=== PATIENT | female | born 1985 | race Caucasian/White ===

== ENCOUNTER 2020-09-29 00:14 | Inpatient (IN) | payer SELFPAY ==
[2020-09-29 00:53] LABS: Basophils % 1.4 % (0-1.3); Hematocrit 36.7 % (36.0-45.0); Lymphocytes % 21.8 % (15.3-44.8); MPV 9.2 fL (7.6-11.3); RBC Red Blood Cell Count 5.45 M/uL (3.86-4.86)
[2020-09-29 00:54] LABS: Protime INR 1.31
[2020-09-29 01:09] LABS: Albumin 3.3 g/dL (3.4-5.0); Bilirubin Direct 0.2 mg/dL (0-0.2); Bilirubin Total 0.6 mg/dL (0.2-1.0); Magnesium 2.2 mg/dL (1.8-2.4); Potassium 4.1 mmol/L (3.5-5.1); Troponin (Emerg Dept Use Only) 0.1 ng/mL (0.0-0.045)
[2020-09-29] MEDS ORDERED: METOPROLOL TAR 50 MG TAB ONE (01:18)
[2020-09-29] MEDS ORDERED: ASPIRIN 81 MG CHEWABLE TABLET ONE (01:19)
[2020-09-29] MEDS ORDERED: ENOXAPARIN 100 MG/ML SYR SQ ONE (01:19)
[2020-09-29 01:21] LABS: Anisocytosis 1+; Blood Morphology Comment NOTED (NOT SEEN); Hypochromasia 2+; Ovalocytes 1+; Platelet Estimate ADEQ; Platelets, Giant FEW; Poikilocytosis 1+; White Blood Cell Scan OK (OK)
[2020-09-29] MEDS ORDERED: FUROSEMIDE 20 MG/ 2ML VIAL ONE (01:51)
--- NOTE | 2020-09-29 02:25 | ER ---
Nurse's Notes [facility] Name: Savana Potter Age: 35 yrs Sex: Female : 1985 Arrival Date: 09/29/2020 Time: 00:17 Bed 4 Private MD: Diagnosis: Dyspnea;Chest pain, unspecified;Unspecified combined systolic (congestive) and diastolic (congestive) heart failure;Obesity, unspecified;Pleural effusion in conditions classified elsewhere;Essential (primary) hypertension Presentation: 09/29 00:36 Chief complaint: Patient states: difficulty breathing and fluttering in the chest for 3 em days, denies cough or fever, nausea started today. Coronavirus screen: Client denies travel out of the [place] in the last 14 days. Ebola Screen: Patient negative for fever greater than or equal to 101.5 degrees Fahrenheit, and additional compatible Ebola Virus Disease symptoms Patient denies exposure to infectious person. Patient denies travel to an Ebola-affected area in the 21 days before illness onset. No symptoms or risks identified at this time. Initial Sepsis Screen: Does the patient meet any 2 criteria? HR > 90 bpm. No. Patient's initial sepsis screen is negative. Does the patient have a suspected source of infection? No. Patient's initial sepsis screen is negative. Risk Assessment: Do you want to hurt yourself or someone else? Patient reports no desire to harm self or others. Onset of symptoms was September 26, 2020. 00:36 Method Of Arrival: Ambulatory em 00:36 Acuity: ADEOLA 2 em Triage Assessment: 00:41 General: Appears uncomfortable. Respiratory: Reports shortness of breath at rest Onset: rv The symptoms/episode began/occurred today, the patient has mild shortness of breath. 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 - Social history:: Smoking status: Patient reports the use of cigarette tobacco products, denies chronic smoking, but will smoke occasionally. Screenin:41 Abuse screen: Denies threats or abuse. Denies injuries from another. Nutritional rv screening: No deficits noted. Tuberculosis screening: No symptoms or risk factors identified. Fall Risk None identified. Assessment: 00:40 General: Appears uncomfortable, obese, Behavior is calm, cooperative. Pain: Denies rv pain. Neuro: Level of Consciousness is awake, alert, obeys commands, Oriented to person, place, time. Cardiovascular: Patient's skin is warm and dry. Rhythm is sinus tachycardia. Respiratory: Airway is patent Respiratory effort is even, unlabored, Breath sounds are clear bilaterally. Derm: Skin is intact. Vital Signs: 00:36 BP 144 / 114; Pulse 120; Resp 20; Temp 97.0; Pulse Ox 98% on R/A; Weight 99.79 kg; em Height 5 ft. 1 in. (154.94 cm); Pain 4/10; 02:30 BP 133 / 106; Pulse 104; Resp 24; Temp 97.5; Pulse Ox 97% on R/A; rv 00:36 Body Mass Index 41.57 (99.79 kg, 154.94 cm) em ED Course: 00:17 Patient arrived in ED. ag3 00:26 Ildefonso Hanley, RN is Primary Nurse. rv 00:38 Triage completed. em 00:39 Dixon Martinez MD is Attending Physician. mike 00:39 Arm band placed on. em 00:40 No provider procedures requiring assistance completed. Initial lab(s) drawn, by me, rv sent to lab. EKG done, by ED staff, reviewed by Dixon Martinez MD. Inserted saline lock: 20 gauge in right forearm, using aseptic technique. Blood collected. 00:41 Patient has correct armband on for positive identification. 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 Pulse rv ox on. NIBP on. 01:12 XRAY Chest (1 view) In Process Unspecified. EDMS 02:05 CT Chest For PE Angio In Process Unspecified. EDMS 02:23 Enrico Galvan MD is Hospitalizing Provider. mike 03:32 IV is patent, with fluids infusing freely, Patient admitted, IV remains in place. rv 11:10 Primary Nurse role handed off by Ildefonso Hanley, ZOYA eb 12:53 Claritza Ponce, ZOYA is Primary Nurse. hb Administered Medications: 01:07 Drug: Lopressor (metoprolol TARTRATE) 50 mg Route: PO; rv 02:30 Follow up: Response: No adverse reaction mg2 01:07 Drug: Lovenox 100 mg Route: Sub-Q; Site: abdomen; rv 02:30 Follow up: Response: No adverse reaction mg2 01:07 Drug: Pepcid 20 mg Route: IVP; Site: right forearm; rv 02:30 Follow up: Response: No adverse reaction mg2 01:09 Drug: Aspirin Chewable Tablet 324 mg Route: PO; rv 02:30 Follow up: Response: No adverse reaction mg2 01:38 Drug: Lasix 20 mg Route: IVP; Site: right forearm; rv 02:29 Follow up: Response: No adverse reaction mg2 02:31 Drug: Nitro-Bid Ointment 2 % 1 inches Route: Transdermal; Site: anterior chest wall; mg2 03:32 Follow up: Response: No adverse reaction rv Outcome: 02:24 Decision to Hospitalize by Provider. mike 03:32 Admitted to ER Hold. Please see [employer] for further documentation. rv 03:32 Condition: good 03:32 Instructed on the need for admit. 15:48 Patient left the ED. Signatures: Dispatcher [employer] Dixon Sifuentes MD MD cha Munoz, Edgar, RN RN Claritza Rosas RN RN Carmelina Chavez Michele RN RN [facility] Ildefonso Hanley RN RN Monique Wang
--- NOTE | 2020-09-29 02:25 | EDPHYS ---
Physician Documentation [facility] Name: Savana Potter Age: 35 yrs Sex: Female : 1985 Arrival Date: 09/29/2020 Time: 00:17 Bed 4 Private MD: ED Physician Dixon Martinez HPI: 09/29 00:53 This 35 yrs old Female presents to ER via Ambulatory with complaints of mike Breathing Difficulty. 00:53 The patient has shortness of breath at rest, with light activity. Onset: The mike symptoms/episode began/occurred 3 day(s) ago. Duration: The symptoms are continuous, and are steadily getting worse. The patient's shortness of breath has no apparent modifying factors. Associated signs and symptoms: Pertinent positives: chest pain, non-productive cough. Severity of symptoms: At their worst the symptoms were mild in the emergency department the symptoms are unchanged. The patient has not experienced similar symptoms in the past. 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 - Social history:: Smoking status: Patient reports the use of cigarette tobacco products, denies chronic smoking, but will smoke occasionally. ROS: 00:55 Constitutional: Negative for fever, chills, and weight loss, Eyes: Negative for injury, mike pain, redness, and discharge, ENT: Negative for injury, pain, and discharge, Neck: Negative for injury, pain, and swelling, Cardiovascular: Negative for chest pain, palpitations, and edema, Abdomen/GI: Negative for abdominal pain, nausea, vomiting, diarrhea, and constipation, Back: Negative for injury and pain, : Negative for injury, bleeding, discharge, and swelling, MS/Extremity: Negative for injury and deformity, Skin: Negative for injury, rash, and discoloration, Neuro: Negative for headache, weakness, numbness, tingling, and seizure, Psych: Negative for depression, anxiety, suicide ideation, homicidal ideation, and hallucinations, Allergy/Immunology: Negative for hives, rash, and allergies, Endocrine: Negative for neck swelling, polydipsia, polyuria, polyphagia, and marked weight changes. 00:55 Respiratory: Positive for cough, with no reported sputum, shortness of breath, at rest. Exam: 00:55 Constitutional: This is a well developed, well nourished patient who is awake, alert, mike and in no acute distress. Head/Face: Normocephalic, atraumatic. Eyes: Pupils equal round and reactive to light, extra-ocular motions intact. Lids and lashes normal. Conjunctiva and sclera are non-icteric and not injected. Cornea within normal limits. Periorbital areas with no swelling, redness, or edema. ENT: Nares patent. No nasal discharge, no septal abnormalities noted. Tympanic membranes are normal and external auditory canals are clear. Oropharynx with no redness, swelling, or masses, exudates, or evidence of obstruction, uvula midline. Mucous membranes moist. Neck: Trachea midline, no thyromegaly or masses palpated, and no cervical lymphadenopathy. Supple, full range of motion without nuchal rigidity, or vertebral point tenderness. No Meningismus. Chest/axilla: Normal chest wall appearance and motion. Nontender with no deformity. No lesions are appreciated. Respiratory: Lungs have equal breath sounds bilaterally, clear to auscultation and percussion. No rales, rhonchi or wheezes noted. No increased work of breathing, no retractions or nasal flaring. Abdomen/GI: Soft, non-tender, with normal bowel sounds. No distension or tympany. No guarding or rebound. No evidence of tenderness throughout. Back: No spinal tenderness. No costovertebral tenderness. Full range of motion. Skin: Warm, dry with normal turgor. Normal color with no rashes, no lesions, and no evidence of cellulitis. MS/ Extremity: Pulses equal, no cyanosis. Neurovascular intact. Full, normal range of motion. Neuro: Awake and alert, GCS 15, oriented to person, place, time, and situation. Cranial nerves II-XII grossly intact. Motor strength 5/5 in all extremities. Sensory grossly intact. Cerebellar exam normal. Normal gait. Psych: Awake, alert, with orientation to person, place and time. Behavior, mood, and affect are within normal limits. 00:55 Cardiovascular: Rate: tachycardic, Rhythm: regular, Pulses: Pulses are 4+ in bilateral radial, brachial, femoral, popliteal, posterior tibial and and dorsalis pedis arteries.. Heart sounds: normal, normal S1and S2, no S3 or S4, no murmur, no rub, no gallop, Edema: is not appreciated, JVD: is not appreciated. 01:01 ECG was reviewed by the Attending Physician. [facility] Vital Signs: 00:36 BP 144 / 114; Pulse 120; Resp 20; Temp 97.0; Pulse Ox 98% on R/A; Weight 99.79 kg; em Height 5 ft. 1 in. (154.94 cm); Pain 4/10; 02:30 BP 133 / 106; Pulse 104; Resp 24; Temp 97.5; Pulse Ox 97% on R/A; rv 00:36 Body Mass Index 41.57 (99.79 kg, 154.94 cm) em MDM: 00:39 Patient medically screened. mike 00:57 Differential diagnosis: Anemia Anxiety Reaction acute pericarditis, anxiety, gastritis, mike gastroesophageal reflux disease (GERD), hiatal hernia, pancreatitis, pneumonia, pulmonary embolus, Myocardial Infarction pneumonia, pulmonary edema, Pulmonary Embolism reactive airway disease, Unstable Angina. Antibiotic administration: Not indicated. HEART Score: History: Slightly Suspicious (0), ECG: Non specific repolarization disturbance / LBTB / PM (1), Age: < or = 45 years (0), Risk Factors: No Risk Factors Known (0), Troponin: < or = 1 x Normal Limit (0). The patient's Wells Deep Vein Thrombosis Score was calculated as follows: Total Score: 0. This patient was found to be at low risk for a deep vein thrombosis by using the Well's assessment criteria Total Score: 0-2 Pts- Low Risk. The patient's pulmonary embolism risk score was calculated as follows: the patients heart rate is greater than 100 beats per minute (1.5 Pts) Total Score: 0-2 points. This patient was found to be at low risk for a pulmonary embolism by using the Well's assessment criteria. NELY Risk Score: TOTAL SCORE = 0. Immunization status:. Data reviewed: vital signs, nurses notes, lab test result(s), EKG, radiologic studies, CT scan, plain films. 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 Test interpretation: by ED physician or midlevel provider: ECG, plain radiologic studies. 09/29 00:39 Order name: Basic Metabolic Panel; Complete Time: 01:20 cp 09/29 00:39 Order name: CBC with Diff; Complete Time: 01:29 cp 09/29 00:39 Order name: LFT's; Complete Time: 01:20 cp 09/29 00:39 Order name: Magnesium; Complete Time: 01:20 cp 09/29 00:39 Order name: NT PRO-BNP; Complete Time: 01:20 cp 09/29 00:39 Order name: PT-INR; Complete Time: 01:20 cp 09/29 00:39 Order name: Troponin (emerg Dept Use Only); Complete Time: 01:20 cp 09/29 00:52 Order name: COVID-19 : Document "Date of Symptom Onset" if Symptomatic. [facility] 09/29 00:52 Order name: Lipase; Complete Time: 01:20 mike 09/29 01:09 Order name: CBC Smear Scan; Complete Time: 01:29 EDMS 09/29 02:37 Order name: Urine Dipstick--Ancillary (enter results); Complete Time: 02:58 ds4 09/29 02:46 Order name: SARS-COV-2 RT PCR; Complete Time: 02:58 EDSD 09/29 03:19 Order name: Thyroid Stimulating Hormone EDSD 09/29 00:39 Order name: XRAY Chest (1 view) 09/29 01:22 Order name: CT Chest For PE Angio mike 09/29 03:19 Order name: Comprehensive Metabolic Panel EDSD 09/29 03:19 Order name: Comprehensive Metabolic Panel EDSD 09/29 03:19 Order name: Lipid Profile EDSD 09/29 03:19 Order name: Lipid Profile EDSD 09/29 03:19 Order name: Magnesium EDSD 09/29 03:19 Order name: Magnesium EDMS 09/29 03:19 Order name: Magnesium EDSD 09/29 03:19 Order name: Magnesium EDMS 09/29 03:19 Order name: Troponin I EDSD 09/29 03:19 Order name: Troponin I EDMS 09/29 03:19 Order name: Troponin I EDSD 09/29 03:19 Order name: CBC with Automated Diff EDMS 09/29 03:19 Order name: CBC with Automated Diff EDMS 09/29 03:25 Order name: Urine Drug Screen EDMS 09/29 00:39 Order name: EKG; Complete Time: 00:40 cp 09/29 00:39 Order name: Cardiac monitoring; Complete Time: 00:39 cp 09/29 00:39 Order name: EKG - Nurse/Tech; Complete Time: 00:40 cp 09/29 00:39 Order name: IV Saline Lock; Complete Time: 00:40 cp 09/29 00:39 Order name: Labs collected and sent; Complete Time: 00:40 cp 09/29 00:39 Order name: O2 Per Protocol; Complete Time: 00:40 cp 09/29 00:39 Order name: O2 Sat Monitoring; Complete Time: 00:40 cp 09/29 03:19 Order name: CONS Pharmacy Consult EDMS 09/29 03:19 Order name: CONS Physician Consult EDMS 09/29 03:19 Order name: Full Liquid EDMS 09/29 03:19 Order name: Echo with Doppler EDMS EC:01 Rate is 113 beats/min. Rhythm is regular. QRS [place] is Normal. [place] interval is normal. mike QRS interval is normal. QT interval is normal. No Q waves. T waves are Normal. No ST changes noted. Clinical impression: NSR w/ Non-specific ST/T Changes and No evidence of ischemia. Interpreted by me. Reviewed by me. Administered Medications: 01:07 Drug: Lopressor (metoprolol TARTRATE) 50 mg Route: PO; rv 02:30 Follow up: Response: No adverse reaction mg2 01:07 Drug: Lovenox 100 mg Route: Sub-Q; Site: abdomen; rv 02:30 Follow up: Response: No adverse reaction mg2 01:07 Drug: Pepcid 20 mg Route: IVP; Site: right forearm; rv 02:30 Follow up: Response: No adverse reaction mg2 01:09 Drug: Aspirin Chewable Tablet 324 mg Route: PO; rv 02:30 Follow up: Response: No adverse reaction mg2 01:38 Drug: Lasix 20 mg Route: IVP; Site: right forearm; rv 02:29 Follow up: Response: No adverse reaction mg2 02:31 Drug: Nitro-Bid Ointment 2 % 1 inches Route: Transdermal; Site: anterior chest wall; mg2 03:32 Follow up: Response: No adverse reaction rv Disposition: 09/29/20 02:24 Hospitalization ordered by Enrico Galvan for Inpatient Admission. Preliminary diagnosis are Dyspnea, Chest pain, unspecified, Unspecified combined systolic (congestive) and diastolic (congestive) heart failure, Obesity, unspecified, Pleural effusion in conditions classified elsewhere, Essential (primary) hypertension. - Bed requested for Telemetry/MedSurg (Inpatient). - Status is Inpatient Admission. hb - Condition is Fair. - Problem is new. - Symptoms have improved. Signatures: Dispatcher [employer] [facility] Luanne Zamora RN RN dw Anderson, Corey, MD MD cha Munoz, Edgar RN RN Dixon Hardy PA PA cp Baxter, Heather, RN RN hb Gardose, Michele, RN RN mg2 Ildefonso Hanley RN RN rv Corrections: (The following items were deleted from the chart) 01:41 00:53 CORONAVIRUS ordered. [facility] 02:25 02:24 Hospitalization Ordered by Enrico Galvan MD for Inpatient Admission. Preliminary mike diagnosis is Dyspnea; Chest pain, unspecified; Unspecified combined systolic (congestive) and diastolic (congestive) heart failure; Obesity, unspecified; Pleural effusion in conditions classified elsewhere. Bed requested for Telemetry/MedSurg (Inpatient). Status is Inpatient Admission. Condition is Fair. Problem is new. Symptoms have improved. mike 03:24 02:25 09/29/2020 02:24 Hospitalization Ordered by Enrico Galvan MD for Inpatient dw Admission. Preliminary diagnosis is Dyspnea; Chest pain, unspecified; Unspecified combined systolic (congestive) and diastolic (congestive) heart failure; Obesity, unspecified; Pleural effusion in conditions classified elsewhere; Essential (primary) hypertension. Bed requested for Telemetry/MedSurg (Inpatient). Status is Inpatient Admission. Condition is Fair. Problem is new. Symptoms have improved. mike 14:47 03:24 09/29/2020 02:24 Hospitalization Ordered by Enrico Galvan MD for Inpatient dw Admission. Preliminary diagnosis is Dyspnea; Chest pain, unspecified; Unspecified combined systolic (congestive) and diastolic (congestive) heart failure; Obesity, unspecified; Pleural effusion in conditions classified elsewhere; Essential (primary) hypertension. Bed requested for [facility] ER HOLD. Status is Inpatient Admission. Condition is Fair. Problem is new. Symptoms have improved. 15:48 14:47 09/29/2020 02:24 Hospitalization Ordered by Enrico Galvan MD for Inpatient hb Admission. Preliminary diagnosis is Dyspnea; Chest pain, unspecified; Unspecified combined systolic (congestive) and diastolic (congestive) heart failure; Obesity, unspecified; Pleural effusion in conditions classified elsewhere; Essential (primary) hypertension. Bed requested for Telemetry/MedSurg (Inpatient). Status is Inpatient Admission. Condition is Fair. Problem is new. Symptoms have improved. dw
[2020-09-29] MEDS ORDERED: NITROGLYCERIN 1 GM PKT TD ONE (02:49)
[2020-09-29 02:56] LABS: Urine Blood NEGATIVE (NEG); Urine Glucose NEGATIVE (NEG); Urine Protein TRACE (NEG); Urine pH 6.5 (5.0-7.0)
[2020-09-29] MEDS ORDERED: ALBUTEROL 2.5 MG/3 ML NEB SOL NEB PRN (03:15)
[2020-09-29] MEDS ORDERED: ONDANSETRON 4 MG/2 ML VIAL IV PRN (03:15)
[2020-09-29] MEDS ORDERED: HYDRALAZINE HCL 20 MG/ML VIAL IV PRN (03:17)
[2020-09-29] MEDS ORDERED: LORAZEPAM 0.5 MG TABLET PO PRN (03:17)
[2020-09-29] MEDS ORDERED: GUAIFENESIN/DM 5 ML UCUP PO PRN (03:17)
[2020-09-29] MEDS ORDERED: BENZONATATE 100 MG CAP PO PRN (03:17)
--- NOTE | 2020-09-29 03:25 | P.HP ---
Certification for Inpatient With expected LOS: >2 Midnights Patient will require the following post-hospital care: None Practitioner: I am a practitioner with admitting privileges, knowledge of patient current condition, hospital course, and medical plan of care. Services: Services provided to patient in accordance with Admission requirements found in Title 42 Section 412.3 of the Code of Federal Regulations Patient History Date of Service: 09/29/20 Reason for admission: SOB History of Present Illness: 35 yr old female with pmhx of HTN , admitted for worsening SOB , initial on exertional but later at rest She denies any body swelling . + cough , +chest congestion and intermittent chest pain . on arrival in ER reported tachypneic and dyspneic and had CTA done with no evidence of PE but marked cardiomegaly with trace pleural effusion . She is being admitted for presumed CHF exacerbation Allergies No Known Allergies Allergy (Unverified 02/20/12 15:27) Home Medications: NK [No Home Meds] 04/13/13 Ondansetron [Zofran (Odt)*] 4 mg PO Q6H PRN #30 tab 04/18/13 - Past Medical/Surgical History Diabetic: No -: HTN -: Psychosocial/ Personal History: NO TOB,NO ETOH,NO DRUG USE - Social History Smoking Status: Light Tobacco smoker (1-9 cigarettes/day) Smoking therapy provided: Yes Alcohol use: No CD- Drugs: No Caffeine use: Yes Place of Residence: Home Review of Systems 10-point ROS is otherwise unremarkable Physical Examination - Physical Exam General: Alert, In no apparent distress, Oriented x3 HEENT: Atraumatic, Normocephalic Neck: Supple, 2+ carotid pulse no bruit, JVD not distended Respiratory: Diminished, Crackles/rales Cardiovascular: Regular rate/rhythm, Normal S1 S2 Gastrointestinal: Normal bowel sounds, Soft and benign, Non-distended Musculoskeletal: No clubbing, No swelling Integumentary: No rashes, No breakdown Neurological: Normal gait, Normal speech, Normal strength at 5/5 x4 extr - Studies Laboratory Data (last 24 hrs) 09/29/20 00:44: PT 15.1 H, INR 1.31 09/29/20 00:44: WBC 9.40, Hgb 10.8 L, Hct 36.7, Plt Count 209 09/29/20 00:44: Sodium 142, Potassium 4.1, BUN 13, Creatinine 0.75, Glucose 105, Magnesium 2.2, Total Bilirubin 0.6, AST 23, ALT 33, Alkaline Phosphatase 80 09/29/20 00:40: Lipase 231 Assessment and Plan - Problems (Diagnosis) (1) HTN (hypertension) Current Visit: Yes Status: Acute (2) CHF exacerbation Current Visit: Yes Status: Acute - Plan # CHF - likely diastolic , unclear etiology -will obtain Echo for EF - start gentle diuretics - will do urine drug screen , TSH levels - monitor electrolytes # HTN -controlled DVT prop - sc lovenox Full code - Advance Directives Does patient have a Living Will: No Does patient have a Durable POA for Healthcare: No Physician Review: Patient Assessed, Agree with Above Assessment and Plan
[2020-09-29] MEDS: ACETAMINOPHEN 500 MG TAB PO PRN ×2 (05:07→13:34)
[2020-09-29] MEDS ORDERED: ACETAMINOPHEN 500 MG TAB ONE ×2 (05:22→13:45)
[2020-09-29 07:44] LABS: Magnesium 2.2 mg/dL (1.8-2.4); Thyroid Stimulating Hormone 1.98 uIU/mL (0.360-3.740); Troponin I 0.07 ng/mL (0.0-0.045)
[2020-09-29] MEDS: ASPIRIN EC 81 MG TAB PO SCH (08:01)
[2020-09-29] MEDS: FUROSEMIDE 40 MG TABLET PO SCH ×2 (08:02→16:06)
[2020-09-29] MEDS: ENOXAPARIN 40 MG/0.4 ML SQ SCH (08:02)
[2020-09-29] MEDS: MORPHINE 2 MG/ML SYR IV PRN ×2 (08:02→21:12)
[2020-09-29] MEDS ORDERED: FUROSEMIDE 40 MG TABLET ONE (08:06)
[2020-09-29] MEDS ORDERED: MORPHINE 2 MG/ML SYR ONE (08:06)
[2020-09-29] MEDS ORDERED: ASPIRIN EC 81 MG TAB PO ONE (08:06)
[2020-09-29] MEDS ORDERED: ONDANSETRON 4 MG/2 ML VIAL ONE (08:06)
[2020-09-29] MEDS ORDERED: ENOXAPARIN 40 MG/0.4 ML SQ ONE (08:07)
--- NOTE | 2020-09-29 08:08 | RAD REPORT ---
EXAM DESCRIPTION: [place] Single View09/29/2020 1:12 am CLINICAL HISTORY: Chest pain COMPARISON: 2011 FINDINGS: Upper lobe vessels are prominent indicative of pulmonary venous hypertension. Lungs appea r clear. The heart is moderately to markedly enlarged
--- NOTE | 2020-09-29 08:26 | RAD REPORT ---
EXAM DESCRIPTION: CT - Chest For Pe Angio - 09/29/2020 7:01 am CLINICAL HISTORY: Chest pain; Dyspnea TECHNIQUE: Contiguous axial images obtained through the chest during angiographic phase following th e uneventful administration of IV contrast. Sagittal and coronal reformatted images were provided. VT P reformatted images were provided. This exam was performed according to our departmental dose-optimization program, which includes autom ated exposure control, adjustment of the mA and/or kV according to patient size and/or use of iterati ve reconstruction technique. COMPARISON: No prior exams provided for comparison. FINDINGS: Diagnostic quality: There is good opacification of the pulmonary arterial tree. Motion art ifact degrades image quality and limits evaluation of segmental and subsegmental vessels. Lungs: Minimal interstitial thickening. No focal consolidation. Airways are patent. Pleura: Trace right effusion. No pneumothorax. Heart and pericardium: The heart is moderately enlarged. Small pericardial effusion. Mediastinum and fransisca: No pathologically enlarged lymph nodes. Lower neck and chest wall: Unremarkable Vessels: No pulmonary arterial filling defects. No thoracic aortic aneurysm. Upper abdomen: The liver is enlarged. Bones: Multilevel spondylosis. No acute fracture. IMPRESSION: 1. Motion artifact degrades image quality and limits evaluation of segmental and subse gmental vessels. No central pulmonary embolic disease. 2. Minimal interstitial thickening within the lungs bilaterally. Trace right pleural effusion. No f ocal consolidation. Findings may be related to early pulmonary congestion. 3. Other findings as above. Electronically signed by: Campbell Mccollum MD 09/29/2020 2:18 AM CHANGE CONTROL SPECIALIST Due to temporary technical issues with the PACS/Fluency reporting system, reports are being signed by the in house radiologist without review as a courtesy to ensure prompt reporting. The interpreting r adiologist is fully responsible for the content of the report.
--- NOTE | 2020-09-29 17:58 | P.PN ---
Date of Service: 09/29/20 Patient seen and examined. She is complaining of headache. She states the shortness of breath is better. Patient seen and evaluated by Dr. Cuellar-furnace clerk. Troponin trended flat. Patient with no history of congestive heart failure. Echocardiogram completed and the result is pending. TSH within normal limit. Plan; Continue IV Lasix. Discontinue nitroglycerin patch given patient complained of persistent headache. Monitor intake and output Daily weight. Cardiology is following. Follow up echocardiogram result.
[2020-09-29 21:41] LABS: Barbiturates NEGATIVE (NEGATIVE); Benzodiazepines NEGATIVE (NEGATIVE); Cocaine NEGATIVE (NEGATIVE); METHAMPHETAM POSITIVE (NEGATIVE); Methadone NEGATIVE (NEGATIVE); Opiates NEGATIVE (NEGATIVE); Phencyclidine NEGATIVE (NEGATIVE); THC Cannibis NEGATIVE (NEGATIVE)
[2020-09-30 03:56] LABS: Absolute Lymphocytes (CBC) 2.1 K/uL (0.7-4.9); Basophils % 1.1 % (0-1.3); Hematocrit 34.8 % (36.0-45.0); Lymphocytes % 20.9 % (15.3-44.8); MPV 9.1 fL (7.6-11.3); RBC Red Blood Cell Count 5.16 M/uL (3.86-4.86)
[2020-09-30 04:10] LABS: Albumin 3.1 g/dL (3.4-5.0); Bilirubin Total 1.3 mg/dL (0.2-1.0); Magnesium 1.8 mg/dL (1.8-2.4); Protein, Total 6.5 g/dL (6.4-8.2)
[2020-09-30 06:23] VITALS: BMI 21.7
[2020-09-30] MEDS ORDERED: FUROSEMIDE 40 MG/4 ML VIAL IV SCH (09:00)
[2020-09-30] MEDS: ENOXAPARIN 40 MG/0.4 ML SQ SCH (09:29)
[2020-09-30] MEDS: ASPIRIN EC 81 MG TAB PO SCH (09:29)
[2020-09-30 10:31] VITALS: O2SAT 95
--- NOTE | 2020-09-30 11:14 | P.DS ---
Admission Date: 09/29/20 Discharge Date: 09/30/20 Disposition: ROUTINE DISCHARGE Discharge Condition: FAIR Reason for Admission: SOB Consultations: Cardiology-Dr. Cuellar - Problems (1) CHF exacerbation Status: Acute (2) HTN (hypertension) Status: Acute Brief History of Present Illness: 35-year-old morbidly obese woman presented to the emergency department with a complaint of progressive shortness of breath, initially with exertion and then progress to shortness of breath at rest. Patient also reported orthopnea. CTA of the thorax done in emergency department showed small right pleural effusion and findings consistent with early vascular congestion and moderate cardiomegaly. Her initial troponin mildly elevated to 0.1. Patient was admitted for further management of acute CHF and elevated troponin. Hospital Course: Patient admitted to the medical floor. Troponin trended flat. Patient was treated with IV Lasix. Her shortness of breath resolved with treatment. She no longer had orthopnea. She was seen in consultation by cardiology-Dr. Cuellar. Echocardiogram was performed and the result is pending to be followed by cardiology. Her blood pressure was stable and normotensive most times during the hospital stay and was not needing any antihypertensives. She was a bit tachycardic with heart rate in the 100s. Patient has clinically improved, vitals are stable. ACS has been ruled out and she is deemed clinically stable for discharge. Vital Signs/Physical Exam: Temp Pulse Resp BP Pulse Ox 97.4 F 101 H 18 138/90 95 09/30/20 08:00 09/30/20 08:00 09/30/20 08:00 09/30/20 08:00 09/30/20 08:00 General: Alert, In no apparent distress, Oriented x3 Neck: Supple, JVD not distended Respiratory: Clear to auscultation bilaterally, Normal air movement Cardiovascular: No edema, Normal pulses, Regular rate/rhythm, Normal S1 S2 Gastrointestinal: Normal bowel sounds, Soft and benign, Non-distended, No tenderness Musculoskeletal: No swelling, No tenderness Integumentary: No rashes, No erythema Neurological: Normal speech, Normal strength at 5/5 x4 extr, Cranial nerves 3-12 intact Laboratory Data at Discharge: WBC 10.10 K/uL (4.3-10.9) 09/30/20 03:31 Hgb 10.3 g/dL (12.0-15.0) L 09/30/20 03:31 Hct 34.8 % (36.0-45.0) L 09/30/20 03:31 Plt Count 182 K/uL (152-406) 09/30/20 03:31 PT 15.1 SECONDS (9.5-12.5) H 09/29/20 00:44 INR 1.31 09/29/20 00:44 Sodium 140 mmol/L (136-145) 09/30/20 03:31 Potassium 4.0 mmol/L (3.5-5.1) 09/30/20 03:31 BUN 15 mg/dL (7-18) 09/30/20 03:31 Creatinine 0.77 mg/dL (0.55-1.3) 09/30/20 03:31 Glucose 83 mg/dL (74-106) 09/30/20 03:31 Magnesium 1.8 mg/dL (1.8-2.4) 09/30/20 03:31 Total Bilirubin 1.3 mg/dL (0.2-1.0) H 09/30/20 03:31 AST 116 U/L (15-37) H 09/30/20 03:31 ALT 121 U/L (12-78) H 09/30/20 03:31 Alkaline Phosphatase 75 U/L (45-117) 09/30/20 03:31 Troponin I 0.08 ng/mL (0.0-0.045) H 09/29/20 11:36 Triglycerides 66 mg/dL (<150) 09/30/20 03:31 Cholesterol 75 mg/dL (<200) 09/30/20 03:31 HDL Cholesterol 24 mg/dL (40-60) L 09/30/20 03:31 Cholesterol/HDL Ratio 3.13 09/30/20 03:31 Lipase 231 U/L (73-393) 09/29/20 00:40 Home Medications: Ondansetron [Zofran (Odt)*] 4 mg PO Q6H PRN #30 tab 04/18/13 Aspirin [Aspirin EC 81 MG] 81 mg PO DAILY #30 tablet. 09/30/20 Benzonatate [Tessalon Perle*] 200 mg PO TID PRN #30 cap 09/30/20 Furosemide [Lasix] 40 mg PO DAILY #30 tablet 09/30/20 New Medications: Aspirin [Aspirin EC 81 MG] 81 mg PO DAILY #30 tablet. Furosemide [Lasix] 40 mg PO DAILY #30 tablet Benzonatate [Tessalon Perle*] 200 mg PO TID PRN #30 cap PRN Reason: Cough Diet: AHA Activity: Ad rylan Followup: NONE,NONE [Primary Care Provider] - James Cuellar MD [ACTIVE - CAN ADMIT] - 1-2 Weeks Time spent managing pt's care (in minutes): 37
[2020-09-30 13:47] VITALS: BP 121/70; TEMP 97.5
--- NOTE | 2020-10-01 07:58 | EKG ---
Test Date: 2020-09-29 Test Time: 00:33:14 Manager Project Management: LEATHA MEASUREMENT RESULTS: Intervals: Rate: 113 MN: 132 QRSD: 104 QT: 358 QTc: 491 [place]: P: 67 MN: 132 QRS: 166 T: 7 INTERPRETIVE STATEMENTS: Sinus tachycardia Right atrial enlargement Right axis deviation Pulmonary disease pattern Incomplete right bundle branch block Right ventricular hypertrophy Nonspecific ST abnormality Abnormal ECG Compared to ECG 04/12/2013 20:48:06 Atrial abnormality now present Right-axis deviation now present Incomplete right bundle-branch block now present Right ventricular hypertrophy now present ST (T wave) deviation now present Sinus rhythm no longer present Electronically Signed On 10-01-20 07:53:45 [employer] by James Cuellar
--- NOTE | 2020-10-01 10:52 | CON ---
Date of Consultation: 09/29/2020 Reason For Consultation: New-onset congestive heart failure. History Of Present Illness: Ms. Potter is a 35-year-old woman without any past medical history who d oes not take any medicines. Does not have any allergies. Came in with shortness of breath for few d ays. Complained of PND, orthopnea, pedal edema. No palpitation, no syncope. No chest pain. Denied any nausea, vomiting, diaphoresis, fever or chills. Came in with shortness of breath. Chest x-ray showed CHF. Troponin was 0.10. BNP was 4619. Ms. Potter weighs 220 pounds. Past Medical History: Otherwise have no past medical history. Allergies: NONE. Home Medications: None. Review of Systems: Negative. Social History: Negative. Family History: Noncontributory. Physical Examination: General: She appeared to be in no acute distress. Vital Signs: Stable. She was afebrile. She had diuresed significantly with IV Lasix. HEENT: Negative. Neck: Supple without any bruit, lymphadenopathy, JVD, or thyromegaly. Chest: Reveals some rales at both bases. Cardiac: Revealed a regular rhythm and rate. No murmurs, gallops, or rubs. Abdomen: Benign. Extremities: Revealed edema 1+. Diagnostic Data: As stated earlier. EKG was nonspecific. Impression And Plan: New onset congestive heart failure, most likely diastolic. Echocardiogram is p ending. We will continue IV diuresis. She should definitely go home on p.o. Lasix and carvedilol an d a low-dose PAULINA inhibitor and we will be happy to see her in the next week or two in the office. Sh e needs to be educated on salt restrictions and weight loss as well as fluid restrictions. LINDA/ROSA ISELAL Voice ID: [id number] Report ID: [id number]
--- NOTE | 2020-10-04 14:51 | ECHO ---
HEIGHT: 5 ft 1 in WEIGHT: 115 lb 0 oz DATE OF STUDY: 09/29/[address]: Enrico Galvan MD 2-DIMENSIONAL: YES M.MODE: YES DOPPLER: YES COLOR FLOW: YES TDS: NO PORTABLE: NO DEFINITY: NO BUBBLE STUDY: NO DIAGNOSIS: CEREBRAL VASCULAR ACCIDENT CARDIAC HISTORY: CATHERIZATION: NO SURGERY: NO PROSTHETIC VALVE: NO PACEMAKER: NO MEASUREMENTS (cm) DIASTOLIC (NORMALS) SYSTOLIC (NORMALS) IVSd 1.2 (0.6-1.2) LA Diam 3.9 (1.9-4.0) LVEF 25-30% LVIDd 5.4 (3.5-5.7) LVIDs 4.5 (2.0-3.5) %FS 16% LVPWd 1.2 (0.6-1.2) Ao Diam 3.2 (2.0-3.7) 2 DIMENSIONAL ASSESSMENT: RIGHT ATRIUM: NORMAL LEFT ATRIUM: NORAML RIGHT VENTRICLE: NORMAL LEFT VENTRICLE: NORMAL SIZE TRICUSPID VALVE: NORMAL MITRAL VALVE: NORMAL PULMONIC VALVE: NORMAL AORTIC VALVE: NORMAL PERICARDIAL EFFUSION: TRACE AORTIC ROOT: NORMAL LEFT VENTRICULAR WALL MOTION: SEVERE GLOBAL HYPOKINESIS. DOPPLER/COLOR FLOW: MILD TRICUSPID REGURGITATION - NORMAL RIGHT VENTRICULAR SYSTOLIC PRESSURE. COMMENTS: SEVERE GLOBAL HYPOKINESIS. NORMAL RIGHT VENTRICULAR SYSTOLIC PRESSURE - MILD TRICUSPID REGURGITATION. EJECTION FRACTION 25-30%. TECHNOLOGIST: ROBERT KAUR
== END 2020-09-30 15:58 | disposition home or self-care (01) | DRG 292 ==
LOC: ER 00:14 → ERHOLD 04:04 → 2ND 15:24
PROVIDERS: ADMIT Internal Medicine; ATTEND Internal Medicine
DX: I11.0 Hypertensive heart disease with heart failure (principal); Z68.41 Body mass index [BMI] 40.0-44.9, adult; E66.01 Morbid (severe) obesity due to excess calories; I50.33 Acute on chronic diastolic (congestive) heart failure; F17.210 Nicotine dependence, cigarettes, uncomplicated; Z90.49 Acquired absence of other specified parts of digestive tract; Z79.82 Long term (current) use of aspirin; Z79.899 Other long term (current) drug therapy; Z20.822 Contact with and (suspected) exposure to COVID-19
CPT/HCPCS: 36415; 71045; 71275; 80048; 80053; 80061; 80076; 80307; 81003; 83690; 83735; 83880; 84443; 84484; 85025; 85610; 93005; 93306; 94760; 96372; 96374; 96375; 99285; J1650; J1940; J2270; J2405; Q9967; U0003

== ENCOUNTER 2020-11-29 01:29 | Emergency (ER) | payer SELFPAY ==
--- NOTE | 2020-11-29 02:10 | EDPHYS ---
Physician Documentation [facility] Name: Savana Potter Age: 35 yrs Sex: Female : 1985 Arrival Date: 11/29/2020 Time: 01:31 Bed 6 Private MD: ED Physician Carlos Torres HPI: 11/29 01:58 This 35 yrs old Female presents to ER via Wheelchair with complaints of Chest mike Pain. 01:58 The patient or guardian reports chest pain that is located primarily in the substernal mike area. The pain does not radiate. Associated signs and symptoms: The patient has no apparent associated signs or symptoms. The chest pain is described as a heaviness, a pressure. Duration: The patient or guardian reports a single episode, that is still ongoing, and worsening. Modifying factors: The symptoms are alleviated by application of supplemental oxygen, remaining still, the symptoms are aggravated by breathing, movement. Severity of pain: At its worst the pain was moderate in the emergency department the pain is actually worse mildly. The patient has experienced similar episodes in the past, several times. 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 - Social history:: Smoking status: Patient denies any tobacco usage or history of. - Family history:: not pertinent. ROS: 01:58 Constitutional: Negative for fever, chills, and weight loss, Eyes: Negative for injury, mike pain, redness, and discharge, ENT: Negative for injury, pain, and discharge, Neck: Negative for injury, pain, and swelling, Cardiovascular: Negative for chest pain, palpitations, and edema, Abdomen/GI: Negative for abdominal pain, nausea, vomiting, diarrhea, and constipation, Back: Negative for injury and pain, : Negative for injury, bleeding, discharge, and swelling, MS/Extremity: Negative for injury and deformity, Skin: Negative for injury, rash, and discoloration, Neuro: Negative for headache, weakness, numbness, tingling, and seizure, Psych: Negative for depression, anxiety, suicide ideation, homicidal ideation, and hallucinations, Allergy/Immunology: Negative for hives, rash, and allergies, Endocrine: Negative for neck swelling, polydipsia, polyuria, polyphagia, and marked weight changes, Hematologic/Lymphatic: Negative for swollen nodes, abnormal bleeding, and unusual bruising. 01:58 Respiratory: Positive for cough, dyspnea on exertion, orthopnea, shortness of breath, at rest. 01:58 MS/extremity: Positive for swelling, of the right leg and left leg. Exam: 01:58 Constitutional: This is a well developed, well nourished patient who is awake, alert, mike and in no acute distress. Head/Face: Normocephalic, atraumatic. Eyes: Pupils equal round and reactive to light, extra-ocular motions intact. Lids and lashes normal. Conjunctiva and sclera are non-icteric and not injected. Cornea within normal limits. Periorbital areas with no swelling, redness, or edema. ENT: Nares patent. No nasal discharge, no septal abnormalities noted. Tympanic membranes are normal and external auditory canals are clear. Oropharynx with no redness, swelling, or masses, exudates, or evidence of obstruction, uvula midline. Mucous membranes moist. Neck: Trachea midline, no thyromegaly or masses palpated, and no cervical lymphadenopathy. Supple, full range of motion without nuchal rigidity, or vertebral point tenderness. No Meningismus. Chest/axilla: Normal chest wall appearance and motion. Nontender with no deformity. No lesions are appreciated. Abdomen/GI: Soft, non-tender, with normal bowel sounds. No distension or tympany. No guarding or rebound. No evidence of tenderness throughout. Back: No spinal tenderness. No costovertebral tenderness. Full range of motion. Skin: Warm, dry with normal turgor. Normal color with no rashes, no lesions, and no evidence of cellulitis. MS/ Extremity: Pulses equal, no cyanosis. Neurovascular intact. Full, normal range of motion. Neuro: Awake and alert, GCS 15, oriented to person, place, time, and situation. Cranial nerves II-XII grossly intact. Motor strength 5/5 in all extremities. Sensory grossly intact. Cerebellar exam normal. Normal gait. 01:58 Cardiovascular: Rate: tachycardic, Rhythm: regular, Pulses: Pulses are 4+ in bilateral radial, brachial, femoral, popliteal, posterior tibial and and dorsalis pedis arteries.. Heart sounds: normal, Edema: 4+ edema to level of left midcalf and right midcalf, JVD: is noted bilaterally, to 3 cm. 01:58 ECG was reviewed by the Attending Physician. 05:50 Abdomen/GI: Inspection: distension, Bowel sounds: normal, Palpation: moderate abdominal mike tenderness, in the suprapubic area and right lower quadrant, Liver: is enlarged, palpable 12 cm(s) below rib margin, tenderness, that is mild, Hernia: not appreciated. Vital Signs: 01:43 BP 129 / 102; Pulse 119; Resp 28 S; Temp 98.2; Weight 104.33 kg; Height 5 ft. 1 in. em (154.94 cm); Pain 7/10; 01:50 Pulse Ox 97% on R/A; em 03:04 BP 143 / 107; Pulse 107; Resp 28; Pulse Ox 99% ; ea 04:00 BP 141 / 102; Pulse 110; Resp 24; Pulse Ox 97% on BiPAP; rr5 05:00 BP 127 / 87; Pulse 108; Resp 22; Pulse Ox 98% on BiPAP; rr5 06:00 BP 118 / 70; Pulse 110; Resp 16; Pulse Ox 98% on 10% Non-rebreather mask; rr5 01:43 Body Mass Index 43.46 (104.33 kg, 154.94 cm) em MDM: 01:36 Patient medically screened. mkie 02:03 Differential diagnosis: abnormal EKG, acute myocardial infarction, coronary artery mike disease chest wall pain, congestive heart failure hiatal hernia, pancreatitis, peptic ulcer disease, pneumonia, pneumothorax, stable angina, unstable angina. HEART Score: History: Moderately Suspicious (1), ECG: Non specific repolarization disturbance / LBTB / PM (1), Age: < or = 45 years (0), Risk Factors: > or = 3 Risk factors for atherosclerotic disease (2), [Hypercholesterolemia] [Hypertension] [+ Family HX] [Obesity] Troponin: < or = 1 x Normal Limit (0), Total Score = 4. The patient's deep vein thrombosis risk score was calculated as follows: the patients entire leg is swollen (1.0 Pts) Total Score: 1 to 2 points. This patient was found to be at moderate risk for a deep vein thrombosis by using the Well's assessment criteria. The patient's pulmonary embolism risk score was calculated as follows: the patients heart rate is greater than 100 beats per minute (1.5 Pts) Total Score: 0-2 points. This patient was found to be at low risk for a pulmonary embolism by using the Well's assessment criteria. NELY Risk Score: 1 - Three or more CAD risk factors, TOTAL SCORE = 2. Data reviewed: vital signs, nurses notes, lab test result(s), EKG, radiologic studies, plain films. Data interpreted: radiation monitor: rate is 119 beats/min, rhythm is regular, Pulse oximetry: on room air is 97 %. Test interpretation: by ED physician or midlevel provider: ECG, plain radiologic studies. Counseling: I had a detailed discussion with the patient and/or guardian regarding: the historical points, exam findings, and any diagnostic results supporting the discharge/admit diagnosis, lab results, radiology results, the need for further work-up and treatment in the hospital. 11/29 01:41 Order name: Basic Metabolic Panel; Complete Time: 03:28 rr5 11/29 01:41 Order name: CBC with Diff; Complete Time: 05:05 rr5 11/29 01:41 Order name: LFT's; Complete Time: 03:28 rr5 11/29 01:41 Order name: Magnesium; Complete Time: 03:28 rr5 11/29 01:41 Order name: NT PRO-BNP; Complete Time: 03:28 rr5 11/29 01:41 Order name: PT-INR; Complete Time: 02:44 rr5 11/29 01:41 Order name: Troponin (emerg Dept Use Only); Complete Time: 03:28 rr5 11/29 01:48 Order name: TSH [facility] 11/29 01:56 Order name: AMMONIA; Complete Time: 02:54 mike 11/29 02:39 Order name: Thyroid Stimulating Hormone; Complete Time: 03:28 EDMS 11/29 02:42 Order name: CBC Smear Scan; Complete Time: 05:05 EDVT 11/29 02:49 Order name: Sed Rate; Complete Time: 03:58 [facility] 11/29 01:41 Order name: XRAY Chest (1 view); Complete Time: 06:58 rr5 11/29 01:57 Order name: BIPAP [facility] 11/29 02:49 Order name: CT Abd/Pelvis - IV Contrast Only [facility] 11/29 02:54 Order name: Urine Dipstick-Ancillary; Complete Time: 03:28 EDVT 11/29 02:55 Order name: Urine Dipstick-Ancillary; Complete Time: 03:28 EDVT 11/29 02:57 Order name: Urine Microscopic Only; Complete Time: 05:21 [facility] 11/29 03:05 Order name: T4 Free; Complete Time: 03:28 EDVT 11/29 03:20 Order name: Urine --Ancillary (enter results) [facility] 11/29 03:21 Order name: Urine --Ancillary; Complete Time: 05:21 EDVT 11/29 03:53 Order name: SARS-COV-2 RT PCR; Complete Time: 03:58 EDVT 11/29 05:08 Order name: BIPAP [facility] 11/29 01:41 Order name: EKG; Complete Time: 01:42 [facility] 11/29 01:41 Order name: Cardiac monitoring; Complete Time: 02:21 [facility] 11/29 01:41 Order name: EKG - Nurse/Tech; Complete Time: 02:21 [facility] 11/29 01:41 Order name: IV Saline Lock; Complete Time: 02:21 [facility] 11/29 01:41 Order name: Labs collected and sent; Complete Time: 02:22 [facility] 11/29 01:41 Order name: O2 Per Protocol; Complete Time: 02:22 [facility] 11/29 01:41 Order name: O2 Sat Monitoring; Complete Time: 02:22 [facility] 11/29 01:48 Order name: Urine Dipstick-Ancillary (obtain specimen); Complete Time: 02:57 [facility] 11/29 01:48 Order name: Urine Test (obtain specimen); Complete Time: 02:57 [facility] 11/29 01:56 Order name: Goins; Complete Time: 02:56 [facility] EC:58 Rate is 119 beats/min. Rhythm is regular. QRS [place] is Normal. DC interval is normal. No mike Q waves. T waves are Normal. No ST changes noted. Clinical impression: Sinus tachycardia and No evidence of ischemia. Interpreted by me. Reviewed by me. Administered Medications: 02:19 Drug: Zofran (Ondansetron) 4 mg Route: IVP; Site: right antecubital; ea 03:20 Follow up: Response: No adverse reaction rr5 02:19 Drug: Lasix (furosemide) 60 mg Route: IVP; Site: right antecubital; ea 03:40 Follow up: Response: No adverse reaction; Other; positive urine output rr5 02:20 Drug: Xopenex (levalbuterol) 1.25 mg Route: Inhalation; ea 03:15 Follow up: Response: No adverse reaction rr5 02:20 Drug: Nitro-Bid Ointment 2 % 1 inches Route: Transdermal; Site: affected area; ea 03:20 Follow up: Response: No adverse reaction rr5 02:20 Drug: AtroVENT (ipratropium) Aerosol 0.5 mg Route: Inhalation; ea 03:20 Follow up: Response: No adverse reaction; Marked relief of symptoms rr5 02:20 Drug: morphine 2 mg Route: IVP; Site: right antecubital; ea 03:20 Follow up: Response: No adverse reaction; Pain is decreased; RASS: Alert and Calm (0) rr5 02:57 Drug: Pepcid (famotidine) 20 mg Route: IVP; Site: right antecubital; ea 04:00 Follow up: Response: No adverse reaction rr5 04:11 Drug: Magnesium Sulfate 1 grams Route: IVPB; Infused Over: 1 hrs; Site: right ea antecubital; 05:45 Follow up: Response: No adverse reaction; IV Status: Completed infusion ea 05:45 Drug: Potassium Effervescent Tablet 25 mEq Route: PO; ea 06:32 Follow up: Response: No adverse reaction rr5 06:30 Drug: morphine 2 mg {Note: rass 0.} Route: IVP; Site: right forearm; rr5 07:12 Follow up: Response: No adverse reaction; Pain is decreased; RASS: Alert and Calm (0) rr5 Disposition: 05:09 Co-signature as Attending Physician, Dixon Martinez MD I agree with the assessment and mike plan of care. Disposition: 11/29/20 05:20 Transfer ordered to [facility]. Diagnosis are Unspecified combined systolic (congestive) and diastolic (congestive) heart failure, Hypomagnesemia, Anemia, unspecified, Salpingitis and oophoritis, unspecified - Right, Essential (primary) hypertension, Other chest pain - Angina, Hepatomegaly, not elsewhere classified - severe, Ascites, Abdominal tenderness, Pleural effusion in conditions classified elsewhere. - Reason for transfer: Higher level of care. - Accepting physician is Humberto Escalante. - Condition is Fair. - Problem is new. - Symptoms have improved. Signatures: Dispatcher [employer] EDVT Vesta Aguayo RN Dixon Lund MD MD cha Rittger, Kevin, MD MD kdr Munoz, Edgar RN Mandi Lunsford RN RN iw Enrique Diamond, IRON MINER-C IRON MINER-Cla1 Coco Em RN RN ea Roque, Raymond, RN RN rr5 Corrections: (The following items were deleted from the chart) 02:38 01:48 Thyroid Stimulating Hormone ordered. EDVT EDMS 02:50 02:09 Hospitalization Ordered by Dannie Levy MD for Inpatient Admission. Preliminary mike diagnosis is Chest pain, unspecified; Unspecified combined systolic (congestive) and diastolic (congestive) heart failure; Essential (primary) hypertension; Edema, unspecified. Bed requested for Telemetry/MedSurg (Inpatient). Status is Inpatient Admission. Condition is Serious. Problem is new. Symptoms have improved. mike 02:55 01:58 CORONAVIRUS+ ordered. EDVT EDMS 04:02 01:47 PMHx: None; em la1 04:19 02:50 11/29/2020 02:09 Hospitalization Ordered by Dannie Levy MD for Inpatient mw Admission. Preliminary diagnosis is Chest pain, unspecified; Unspecified combined systolic (congestive) and diastolic (congestive) heart failure; Essential (primary) hypertension; Edema, unspecified; Anemia, unspecified. Bed requested for Telemetry/MedSurg (Inpatient). Status is Inpatient Admission. Condition is Serious. Problem is new. Symptoms have improved. mike 05:09 04:19 11/29/2020 02:09 Hospitalization Ordered by Dannie Levy MD for Inpatient mike Admission. Preliminary diagnosis is Chest pain, unspecified; Unspecified combined systolic (congestive) and diastolic (congestive) heart failure; Essential (primary) hypertension; Edema, unspecified; Anemia, unspecified. Bed requested for Telemetry/MedSurg (Inpatient). Status is Inpatient Admission. Condition is Serious. Problem is new. Symptoms have improved. 05:20 05:20 11/29/2020 05:20 Transfer ordered to [facility]. Diagnosis is Unspecified mike combined systolic (congestive) and diastolic (congestive) heart failure; Hypomagnesemia; Anemia, unspecified; Salpingitis and oophoritis, unspecified - Right; Essential (primary) hypertension; Other chest pain - Angina; Hepatomegaly, not elsewhere classified - severe; Ascites. Reason for transfer: Higher level of care. Accepting physician is [facility]. Condition is Fair. Problem is new. Symptoms have improved. mike 05:51 05:20 11/29/2020 05:20 Transfer ordered to [facility]. Diagnosis is mike Unspecified combined systolic (congestive) and diastolic (congestive) heart failure; Hypomagnesemia; Anemia, unspecified; Salpingitis and oophoritis, unspecified - Right; Essential (primary) hypertension; Other chest pain - Angina; Hepatomegaly, not elsewhere classified - severe; Ascites. Reason for transfer: Higher level of care. Accepting physician is to [employer], [facility]. Condition is Fair. Problem is new. Symptoms have improved. mike 06:14 05:51 11/29/2020 05:20 Transfer ordered to [facility]. Diagnosis is mike Unspecified combined systolic (congestive) and diastolic (congestive) heart failure; Hypomagnesemia; Anemia, unspecified; Salpingitis and oophoritis, unspecified - Right; Essential (primary) hypertension; Other chest pain - Angina; Hepatomegaly, not elsewhere classified - severe; Ascites; Abdominal tenderness. Reason for transfer: Higher level of care. Accepting physician is to [employer], [facility]. Condition is Fair. Problem is new. Symptoms have improved. mike 07:54 06:14 11/29/2020 05:20 Transfer ordered to [facility]. Diagnosis is kdr Unspecified combined systolic (congestive) and diastolic (congestive) heart failure; Hypomagnesemia; Anemia, unspecified; Salpingitis and oophoritis, unspecified - Right; Essential (primary) hypertension; Other chest pain - Angina; Hepatomegaly, not elsewhere classified - severe; Ascites; Abdominal tenderness; Pleural effusion in conditions classified elsewhere. Reason for transfer: Higher level of care. Accepting physician is to [employer], [facility]. Condition is Fair. Problem is new. Symptoms have improved. mike 07:55 07:54 11/29/2020 05:20 Transfer ordered to [facility]. kdr Diagnosis is Unspecified combined systolic (congestive) and diastolic (congestive) heart failure; Hypomagnesemia; Anemia, unspecified; Salpingitis and oophoritis, unspecified - Right; Essential (primary) hypertension; Other chest pain - Angina; Hepatomegaly, not elsewhere classified - severe; Ascites; Abdominal tenderness; Pleural effusion in conditions classified elsewhere. Reason for transfer: Higher level of care. Accepting physician is to [facility], [facility]. Condition is Fair. Problem is new. Symptoms have improved. kdr 09:42 07:55 11/29/2020 05:20 Transfer ordered to [facility]. iw Diagnosis is Unspecified combined systolic (congestive) and diastolic (congestive) heart failure; Hypomagnesemia; Anemia, unspecified; Salpingitis and oophoritis, unspecified - Right; Essential (primary) hypertension; Other chest pain - Angina; Hepatomegaly, not elsewhere classified - severe; Ascites; Abdominal tenderness; Pleural effusion in conditions classified elsewhere. Reason for transfer: Higher level of care. Accepting physician is Humberto Escalante. Condition is Fair. Problem is new. Symptoms have improved. kdr
--- NOTE | 2020-11-29 02:10 | ER ---
Nurse's Notes [facility] Name: Savana Potter Age: 35 yrs Sex: Female : 1985 Arrival Date: 11/29/2020 Time: 01:31 Bed 6 Private MD: Diagnosis: Unspecified combined systolic (congestive) and diastolic (congestive) heart failure;Hypomagnesemia;Anemia, unspecified;Salpingitis and oophoritis, unspecified-Right;Essential (primary) hypertension;Other chest pain-Angina;Hepatomegaly, not elsewhere classified-severe;Ascites;Abdominal tenderness;Pleural effusion in conditions classified elsewhere Presentation: 11/29 01:43 Chief complaint: Patient states: shortness of breath and chest pain for a few days, was em in the hospital recently and diagnosed with an abscess on the ovarian tube, has been taking cefdinir for 2 days, reports bloating and 40-50 pound weight in the last 2 weeks, denies fever. Coronavirus screen: Client denies travel out of the [place] in the last 14 days. Ebola Screen: Patient negative for fever greater than or equal to 101.5 degrees Fahrenheit, and additional compatible Ebola Virus Disease symptoms Patient denies exposure to infectious person. Patient denies travel to an Ebola-affected area in the 21 days before illness onset. No symptoms or risks identified at this time. Initial Sepsis Screen: Does the patient meet any 2 criteria? RR > 20 per min. HR > 90 bpm. Yes Does the patient have a suspected source of infection? No. Patient's initial sepsis screen is negative. If YES to both, name of provider notified: Dixon Martinez MD. Risk Assessment: Do you want to hurt yourself or someone else? Patient reports no desire to harm self or others. Onset of symptoms was November 28, 2020. 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 - Social history:: Smoking status: Patient denies any tobacco usage or history of. - Family history:: not pertinent. Screenin:14 Abuse screen: Denies threats or abuse. Nutritional screening: No deficits noted. ea Tuberculosis screening: No symptoms or risk factors identified. Fall Risk None identified. Assessment: 01:50 General: Appears uncomfortable, Behavior is appropriate for age. Pain: Complains of ea pain in chest Pain does not radiate. Pain began 1 day ago. Neuro: Level of Consciousness is awake, alert, obeys commands, Oriented to person, place, time. Cardiovascular: Patient's skin is warm and dry. Respiratory: Airway is patent Respiratory effort is labored, Respiratory pattern is tachypnea. Derm: Skin is diaphoretic, Skin is pale, Skin temperature is cool. 02:15 Reassessment: Resp at bedside placing pt on Bipap. ea 03:30 Reassessment: Patient appears in no apparent distress at this time. Patient is alert, rr5 oriented x 3, equal unlabored respirations, skin warm/dry/pink. for admission. 04:30 Reassessment: Patient appears in no apparent distress at this time. Patient is alert, rr5 oriented x 3, equal unlabored respirations, skin warm/dry/pink. room assigned, can be transfer after shift change. Patient states feeling better. Patient states symptoms have improved. 05:51 Reassessment: Patient appears in no apparent distress at this time. resting eyes closed rr5 on BIPAP, patient is for transfer to other facility. 05:59 Reassessment: patient requested to take break from BIPAP, hooked to NRM at 10 rr5 liters/min. 06:31 Reassessment: Patient appears in no apparent distress at this time. complaint of rr5 headache, stat medication given, pain score 6/10. awaiting for acceptance from other facility. 07:30 Reassessment: Patient appears in no apparent distress at this time. Patient and/or iw family updated on plan of care and expected duration. Pain level reassessed. Patient is alert, oriented x 3, equal unlabored respirations, skin warm/dry/pink. Patient states feeling better. Patient states symptoms have improved. Vital Signs: 01:43 BP 129 / 102; Pulse 119; Resp 28 S; Temp 98.2; Weight 104.33 kg; Height 5 ft. 1 in. em (154.94 cm); Pain 7/10; 01:50 Pulse Ox 97% on R/A; em 03:04 BP 143 / 107; Pulse 107; Resp 28; Pulse Ox 99% ; ea 04:00 BP 141 / 102; Pulse 110; Resp 24; Pulse Ox 97% on BiPAP; rr5 05:00 BP 127 / 87; Pulse 108; Resp 22; Pulse Ox 98% on BiPAP; rr5 06:00 BP 118 / 70; Pulse 110; Resp 16; Pulse Ox 98% on 10% Non-rebreather mask; rr5 01:43 Body Mass Index 43.46 (104.33 kg, 154.94 cm) em ED Course: 01:31 Patient arrived in ED. ag3 01:36 Dixon Martinez MD is Attending Physician. mike 01:37 Dannie Nunez, ZOYA is Primary Nurse. rr5 01:47 Triage completed. em 01:47 Arm band placed on. em 01:50 Patient has correct armband on for positive identification. Placed in gown. Bed in low ea position. Call light in reach. Side rails up X2. environmental monitoring specialist on. Pulse ox on. NIBP on. 01:50 Inserted saline lock: 20 gauge in right antecubital area, using aseptic technique. ea Blood collected. 01:50 Patient maintains SpO2 saturation greater than 95% on room air. ea 01:56 XRAY Chest (1 view) In Process Unspecified. EDMS 02:08 Dannie Levy MD is Hospitalizing Provider. mike 02:57 Goins cath inserted, using sterile technique, 16 Fr., by ky, balloon inflated, to rr5 gravity drainage, urine specimen collected. 03:06 No provider procedures requiring assistance completed. Patient admitted, IV remains in ea place. 03:43 CT Abd/Pelvis - IV Contrast Only In Process Unspecified. EDMS 05:01 Initiated transfer to [facility] Dr. Martinez spoke to Yesica. ar5 05:11 [facility] all campuses decline due to being \T\ capacity. ar5 05:13 Initiated transfer to [facility] Dr. Martinez spoke to Yelena. ar5 05:58 done with OBGYN. ar5 06:01 [facility] declined due to being \T\ capacity per Yelena. Per Dr. Martinez go ar5 down the list of all [facility]; [facility], [facility], [facility], [facility], and [place]. 06:15 Initiated to [facility] spoke to [facility], while on the phone they declined to not have bed ar5 available. 06:29 Attending Physician role handed off by Dixon Martinez MD kdr 06:29 Carlos Torres MD is Attending Physician. kdr 06:32 Called [facility] again spoke to Adalberto to see if they had a wait list, they do not have a wait ar5 list and we will need to call back later in the day to re initiate. 06:45 Per Yelena from [facility] they are declining. ar5 06:[address] [facility] spoke to AMIRAH. ar5 06:52 Per [facility] declined due to being \T\ capacity. ar5 07:10 [facility] declined due to no beds at this time. bd 07:35 pt accepted in transfer to [facility] by dr Flores, admin approval given by AMIRAH Alva. 09:12 Primary Nurse role handed off by Dannie Nunez, ZOYA sv 09:42 Mandi Russ, RN is Primary Nurse. iw Administered Medications: 02:19 Drug: Zofran (Ondansetron) 4 mg Route: IVP; Site: right antecubital; ea 03:20 Follow up: Response: No adverse reaction rr5 02:19 Drug: Lasix (furosemide) 60 mg Route: IVP; Site: right antecubital; ea 03:40 Follow up: Response: No adverse reaction; Other; positive urine output rr5 02:20 Drug: Xopenex (levalbuterol) 1.25 mg Route: Inhalation; ea 03:15 Follow up: Response: No adverse reaction rr5 02:20 Drug: Nitro-Bid Ointment 2 % 1 inches Route: Transdermal; Site: affected area; ea 03:20 Follow up: Response: No adverse reaction rr5 02:20 Drug: AtroVENT (ipratropium) Aerosol 0.5 mg Route: Inhalation; ea 03:20 Follow up: Response: No adverse reaction; Marked relief of symptoms rr5 02:20 Drug: morphine 2 mg Route: IVP; Site: right antecubital; ea 03:20 Follow up: Response: No adverse reaction; Pain is decreased; RASS: Alert and Calm (0) rr5 02:57 Drug: Pepcid (famotidine) 20 mg Route: IVP; Site: right antecubital; ea 04:00 Follow up: Response: No adverse reaction rr5 04:11 Drug: Magnesium Sulfate 1 grams Route: IVPB; Infused Over: 1 hrs; Site: right ea antecubital; 05:45 Follow up: Response: No adverse reaction; IV Status: Completed infusion ea 05:45 Drug: Potassium Effervescent Tablet 25 mEq Route: PO; ea 06:32 Follow up: Response: No adverse reaction rr5 06:30 Drug: morphine 2 mg {Note: rass 0.} Route: IVP; Site: right forearm; rr5 07:12 Follow up: Response: No adverse reaction; Pain is decreased; RASS: Alert and Calm (0) rr5 Intake: Output: 02:55 Urine: 650ml (Voided); Total: 650ml. rr5 03:23 Urine: 1000ml (Goins); Total: 1650ml. rr5 04:12 Urine: 2000ml (Goins); Total: 3650ml. ea 05:15 Urine: 1700ml (Goins); Total: 5350ml. rr5 07:11 Urine: 870ml (Goins); Total: 6220ml. rr5 Outcome: 02:09 Decision to Hospitalize by Provider. mike 05:20 ER care complete, transfer ordered by . mike 08:23 Transferred by ground EMS to [facility], Transfer form completed. iw X-rays sent w/ [facility]. [facility] Condition: good 08:23 Instructed on the need for transfer, Demonstrated understanding of instructions. 09:42 Patient left the ED. iw Signatures: Dispatcher [employer] EDMS Lorna Joy Stephanie RN Dixon Menjivar MD MD cha Rittger, Kevin, MD MD kdr Munoz, Edgar, RN RN em Williams, Irene, RN RN iw Attema, Lee, MANIFOLD BUILDER-C MANIFOLD BUILDER-Cla1 Coco Em RN RN ea Gomez, Alice ag3 Dannie Nunez RN RN rr5 Shani Naranjo5 Corrections: (The following items were deleted from the chart) 01:48 01:43 Chief complaint: Patient states: shortness of breath and chest pain for a few em days, was in the hospital recently and diagnosed with an abscess on the ovarian tube, has been taking cefdinir for 2 days, reports bloating and 40-50 pound weight in the last week, denies fever em 04: 01:47 PMHx: None; em la1
[2020-11-29] MEDS ORDERED: NITROGLYCERIN 1 GM PKT TD ONE ×2 (02:20→02:30)
[2020-11-29] MEDS ORDERED: FUROSEMIDE 100 MG/10 ML VIAL IV ONE ×2 (02:20→02:30)
[2020-11-29] MEDS ORDERED: MORPHINE 2 MG/ML SYR ONE ×2 (02:20→02:30)
[2020-11-29] MEDS ORDERED: ONDANSETRON 4 MG/2 ML VIAL ONE ×2 (02:20→02:30)
[2020-11-29] MEDS ORDERED: IPRATROPIUM BROM 0.5MG/2.5ML ONE ×2 (02:21→02:31)
[2020-11-29] MEDS ORDERED: LEVALBUTEROL 1.25 MG/3 ML NEB ONE ×2 (02:21→02:31)
[2020-11-29 02:37] LABS: Protime INR 1.84
[2020-11-29 02:38] LABS: Absolute Lymphocytes (CBC) 1.5 K/uL (0.7-4.9); Basophils % 1.1 % (0-1.3); Hematocrit 33.1 % (36.0-45.0); Lymphocytes % 13.7 % (15.3-44.8); MPV 9.4 fL (7.6-11.3); RBC Red Blood Cell Count 4.93 M/uL (3.86-4.86)
[2020-11-29 02:54] LABS: Urine Blood Negative (Negative); Urine Glucose Negative (Negative); Urine Protein Negative (Negative)
[2020-11-29 03:01] LABS: ALT/SGPT 208 U/L (12-78); AST/SGOT 27 U/L (15-37); Albumin 2.6 g/dL (3.4-5.0); Alkaline Phosphatase 91 U/L (45-117); BUN Blood Urea Nitrogen 11 mg/dL (7-18); Bicarbonate 24 mmol/L (21-32); Bilirubin Direct 0.4 mg/dL (0-0.2); Bilirubin Total 0.8 mg/dL (0.2-1.0); Glucose Level 100 mg/dL (74-106); Magnesium 1.6 mg/dL (1.8-2.4); NT PRO-BNP 3723 pg/mL (<125); Potassium 4.3 mmol/L (3.5-5.1); Protein, Total 6.8 g/dL (6.4-8.2); Sodium Level 140 mmol/L (136-145); Troponin (Emerg Dept Use Only) 0.09 ng/mL (0.0-0.045)
[2020-11-29] MEDS ORDERED: FAMOTIDINE 20 MG/2 ML VIAL IV ONE (03:12)
[2020-11-29] MEDS ORDERED: Magnesium Sulfate 2gm IVPB 2 G/50 ML BAG IV ONE (04:24)
[2020-11-29 04:28] LABS: Anisocytosis 2+; Blood Morphology Comment NOTED (NOT SEEN); Hypochromasia 2+; Platelet Estimate ADEQ; Polychromasia SLIGHT; White Blood Cell Scan OK (OK)
[2020-11-29 05:21] LABS: Urine Bacteria <20 /HPF (<20); Urine RBC NONE SEEN /HPF (NONE SEEN)
[2020-11-29] MEDS ORDERED: POTASSIUM 25 MEQ EFFERV TAB ONE (05:50)
--- NOTE | 2020-11-29 06:54 | RAD REPORT ---
EXAM DESCRIPTION: RAD - Chest Single View - 11/29/2020 1:56 am CLINICAL HISTORY: CHEST PAIN, shortness of breath COMPARISON: Portable October 27 TECHNIQUE: AP portable chest image was obtained 11/29/2020 1:56 am . FINDINGS: Exam is very limited. Shallow inspiration, portable technique and large body habitus subst antially limit the evaluation. No focal mass or consolidation identifiable. Enlarged cardiac silhouet te is again noted. Pulmonary vasculature is mildly prominent. No measurable pleural effusion and no p neumothorax. No acute bony abnormality seen. No acute aortic findings suspected. IMPRESSION: Very limited portable study shows no focal consolidation or mass. Cardiomegaly is stable. Mild failure or volume overload cannot be excluded.
[2020-11-29 09:47] VITALS: TEMP 98.2
[2020-11-29 09:52] VITALS: O2SAT 98
[2020-11-29 09:53] VITALS: BP 118/70
--- NOTE | 2020-11-29 10:42 | RAD REPORT ---
EXAM DESCRIPTION: CT - Abdomen Pelvis W Contrast - 11/29/2020 6:17 am COMPARISON: None. CLINICAL HISTORY: [facility] MAIN ABD PAIN TECHNIQUE: CT of the abdomen and pelvis was acquired with IV contrast material. Coronal and sagitt al reconstructions were obtained. Automated exposure control was utilized on this examination as a dose lowering technique. FINDINGS: Lung bases: Cardiomegaly with small right pleural effusion. Liver: Severely enlarged measuring 23.2 cm midclavicular line with heterogeneous enhancement. Gallbladder and biliary: Cholecystectomy. Unremarkable biliary tree. Pancreas: There is fatty infiltration of the pancreatic tail. Spleen: Calcified granulomas are present. Adrenal glands: Normal adrenal glands. Kidneys: Normal kidneys Stomach and Small Bowel: The stomach and small bowel are normal. Urinary bladder: Decompressed with Goins catheter in place. Uterus and Adnexa: There is fluid in the vaginal canal. A surgical clip is noted adjacent to the uter ine fundus. The right ovary is mildly enlarged measuring 6.1 cm. Colon and Appendix: Mild descending diverticulosis is noted. Possible appendiceal dilatation on serie s 502 image 46 measuring 9 mm. There is stranding of fat or ascites in the adjacent tissues. Retroperitoneum and lymph nodes: Retroperitoneal lymph nodes are likely reactive. Vascular: Normal. Peritoneal cavity: Mild ascites is present. No significant intraperitoneal free air. Musculoskeletal and soft tissues: Moderate anasarca. Lumbar spondylosis. No aggressive bone lesions. No compression fracture. IMPRESSION: 1. Severe hepatomegaly with heterogeneity, consistent with chronic liver disease. 2. Mild ascites and moderate anasarca are present. 3. Cardiomegaly with small right pleural effusion. 4. Enlargement of the right ovary/adnexa. This is not well-visualized. If there is pain localizing to this area, consider further evaluation with pelvic ultrasound. 5. Possible appendiceal dilatation, not well visualized. Adjacent fat stranding or ascites is present . Electronically signed by: Moises Lai MD 11/29/2020 4:06 AM CDT Due to temporary technical issues with the PACS/Fluency reporting system, reports are being signed by the in house radiologist without review as a courtesy to ensure prompt reporting. The interpreting r adiologist is fully responsible for the content of the report.
--- NOTE | 2020-11-30 07:38 | EKG ---
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: EM MEASUREMENT RESULTS: Intervals: Rate: 119 KS: 128 QRSD: 104 QT: 350 QTc: 492 [place]: P: 60 KS: 128 QRS: 181 T: -9 INTERPRETIVE STATEMENTS: Sinus tachycardia Possible Left atrial enlargement Indeterminate axis Low voltage QRS Incomplete right bundle branch block Cannot rule out Anterior infarct, age undetermined Abnormal ECG Compared to ECG 09/29/2020 00:33:14 Indeterminate axis now present Low QRS voltage now present Myocardial infarct finding now present Right-axis deviation no longer present Right ventricular hypertrophy no longer present ST (T wave) deviation no longer present Electronically Signed On 11-30-20 07:34:57 CDT by James Cuellar
== END 2020-11-29 09:42 | disposition short-term general hospital (02) ==
LOC: ER 01:29
DX: I50.40 Unspecified combined systolic (congestive) and diastolic (congestive) heart failure (principal); E83.42 Hypomagnesemia; D64.9 Anemia, unspecified; I10 Essential (primary) hypertension; J90 Pleural effusion, not elsewhere classified; R16.0 Hepatomegaly, not elsewhere classified; R18.8 Other ascites; N70.93 Salpingitis and oophoritis, unspecified; R10.819 Abdominal tenderness, unspecified site; Z20.822 Contact with and (suspected) exposure to COVID-19
CPT/HCPCS: 36415; 51702; 71045; 74177; 80048; 80076; 81003; 81015; 81025; 82140; 83735; 83880; 84439; 84443; 84484; 85025; 85610; 85652; 93005; 94660; 99285; J2270; J2405; J3475; Q9967; U0003

== ENCOUNTER 2022-06-05 11:06 | Inpatient (IN) | payer OTHER, SELFPAY ==
--- OUTSIDE RECORDS SUMMARY | 2022-06-05 11:14 | XMS REPORT | Continuity of Care Document ---
:1985 Author Organization [facility] t Address [address] [place] [address] Dr. Pereira. [address] [place] [address] Care Team Providers Name Role Phone SHUKRI STALEY Attending Clinician Unavailable Doctor Unassigned, [place] Attending Clinician Unavailable ROSA MARIA DERAS Attending Clinician Unavailable An Kenney Attending Clinician Dale Cha MD Attending Clinician Dontrell Diaz Attending Clinician Ness Russ DO Attending Clinician Alysia ACEVEDO, Princess Swanson Attending Clinician Caitlin Zamorano MD Attending Clinician Sharmaine Cha MD Attending Clinician SHUKRI STALEY Admitting Clinician Unavailable CONNIE HE Admitting Clinician Unavailable Dale Cha MD Admitting Clinician DALE CHA Admitting Clinician Unavailable Sharmaine Cha MD Admitting Clinician Payers Payer Name Policy Type Policy Number Effective Date Expiration Date S ource Problems Condition Condition Condition Status Onset Resolution Last Treating Co mments Source Name Details Category Date Date Treatment Clinician Date Transamini Transamini Disease Active 2020-0 U nivers tis tis 4-08 ity of 00:00: [address] Tachycardi Tachycardi Disease Active 2020-0 U nivers a a 4-08 ity of 00:00: [place] 00 Medical Branch Obesity Obesity Disease Active Univers (BMI (BMI 4-08 ity of 30-39.9) 30-39.9) 00:00: [place] [facility] Morbid Morbid Disease Active Univers obesity obesity 11-18 ity of with body with body 00:00: [facility] s mass index mass index 00 Me dical of of Branch 40.0-49.9 40.0-49.9 Hepatomega Hepatomega Disease Active U nivers ly ly - ity of 00:00: [place] 00 Medical Branch TOA TOA Disease Active Univers (tubo-ovar (tubo-ovar 11-16 it y of richy richy 00:00: [place] abscess) abscess) 00 Medica l Branch Allergies, Adverse Reactions, Alerts Allergy Allergy Status Severity Reaction(s) Onset Inactive Treating Comm ents Source Name Type Date Date Clinician FERRIC Allergy Active High Anaphylaxis [facility] [place] [address] [facility] NO KNOWN Drug Active Univers ALLERGIE Class ity of S [place] [facility] NO KNOWN Allergy Active [facility] ALLERGIE S Social History Social Habit Start Date Stop Date Quantity Comments Source Exposure to Not sure [facility] SARS-CoV-2 [facility] (event) [place] Tobacco use and 2020-11-23 2020-11-23 Never used Universit y of exposure 00:00:00 00:00:00 [place] [facility] Alcohol intake 2020-11-23 2020-11-23 Current drinker Unive rsity of 00:00:00 00:00:00 of alcohol [facility] (finding) Branch History of 2020-09-19 Smoker University of tobacco use 00:00:00 [place] [facility] Sex [birth year] Universit y of 00:00:00 00:00:00 [place] [facility] Smoking Status Start Date Stop Date Source Former smoker 2020-11-23 00:00:00 2020-11-23 00:00:00 Universi ty [facility] Medications Ordered Filled Start Stop Current Ordering Indication Dosage Frequency Signature Comments Components Source Medication Medication Date Date Medication? Clinician (SIG) Name Name metroNIDAZO Yes 500mg 500 mg, Un shanna MITCHELL (FLAGYL) 4-12 Oral, Q8H, it y of tablet 500 19:00: First dose [place] mg 00 on [facility] 11/27/20 at Branch 1400, Until Discontinu ed, Routine
Reason for Anti-Infec tive: Documented Infection< br>Documen zaria Infection Site: Pelvic
Duration of Therapy: 10 days doxycycline Yes 100mg 100 mg, Un shanna hyclate 4-12 Oral, Q12H ity of (Vibramycin 13:00: ABX, First [place] ) capsule 00 dose on Medical 100 mg [facility] Branch 11/27/20 at 0800, Until Discontinu ed, VLAD
Re ason for Anti-Infec tive: Documented Infection< br>Documen zaria Infection Site: Pelvic
Duration of Therapy: 10 days cefdinir Yes 300mg 300 mg, Unive rs (OMNICEF) -12 Oral, ity of capsule 300 13:00: Q12H, [place] mg 00 First dose Medical on [facility] Branch 11/27/20 at 0800, Until Discontinu ed, VLAD
Re ason for Anti-Infec tive: Documented Infection< br>Documen zaria Infection Site: Pelvic
Duration of Therapy: 10 days cefdinir 2020-0 2020- No [id number] 300mg Take 1 U nivers 300 mg 11-27 capsule by ity of capsule 00:00: 04:59 mouth [place] 00 :00 every 12 Medical (twelve) Branch hours for 4 days. cefdinir 2020- No [id number] 300mg Take 1 U nivers 300 mg 11-27 capsule by ity of capsule 00:00: 04:59 mouth [place] 00 :00 every 12 Medical (twelve) Branch hours for 4 days. metroNIDAZO 2020- No 500mg 500 mg, IV Univers LE in NaCl 11-23 Piggyback, it y of (iso-os) 13:00: 11:51 TID, First [place] (FLAGYL 00 :54 dose on Medical I.V.) RTU Radhika 11/23/20 Bran ch IV infusion at 0800, 500 mg Until Discontinu ed, 100 mL
Reas on for Anti-Infec tive: Empiric Therapy for Suspected Infection< br>Empiric Therapy Site: Pelvic< br>Duratio n of therapy: 72 hours ibuprofen 2020- Yes 600mg 600 mg, Univ ers (IBU) 408 Oral, ity of tablet 600 11:49: Q6HPRN, [place] mg 17 Starting Medical Radhika 11/23/20 Branch at 0649, Until Discontinu ed, Routine, Pain (scale 1-3), Pain (scale 4-6), Temp > 38.5 C NaCl 0.9% Yes 10mL 10 mL, Univer s (NS) 4-08 Slow IV ity of injection 11:27: Push, PRN Jimmy as 10 mL 27 - SEE Medical INSTRUCTIO [place] NS, Starting Radhika 11/23/20 at 0627, Until Discontinu ed, Routine heparin Yes 2mL 200 Units Unive rs lock flush 11-23 (2 mL), IV ity of (HEP-LOCK) 11:27: Push, PRN [place] 100 unit/mL 27 - SEE Medical [facility] Units NS, Starting Radhika 11/23/20 at 0627, Until Discontinu ed, Routine NaCl 0.9% 2020- No 1000mL at 999 Uni vers (NS) bolus 11-23-08 mL/hr, ity of infusion 08:15: 09:00 1,000 mL, [place] as 1,000 mL 00 :00 [facility] dose, [facility] 11/23/20 at 0315, STAT iohexol 2020- No [id number] 120mL 120 mL, U nivers (OMNIPAQUE 11-23 Intravenou it y of 350 05:30: 05:00 s, ONCE, 1 [place] BULK-150 00 :00 dose, Radhika Medica l mL) 11/23/20 at [place] injection 0030, 120 mL Routine iohexol 2020- No [id number] 25mL 25 mL, Uni vers (OMNIPAQUE 11-23-08 Oral, ity of 350 BULK) 05:30: 05:00 ONCE, 1 [place] 25 mL 00 :00 dose, Radhika Medical 11/23/20 at Branch 0030, Routine cefTRIAXone 2020- No 2000mg 2,000 mg, Univers (ROCEPHIN) 11-23 IV ity of 2,000 mg in 04:45: 11:51 Piggyback, [place] NaCl 0.9% 00 :54 Q24H ABX, Medic al (NS) 100 mL First dose Br anch MINI-BAG on Fri11/22/20 at 2345, Until Discontinu ed, 100 mL
R eugenio for Anti-Infec tive: Empiric Therapy for Suspected Infection< br>Empiric Therapy Site: Pelvic
Duration of therapy: 72 hours doxycycline 2020- No 100mg 100 mg, IV Univers (VIBRAMYCIN 11-23 Piggyback, i ty of ) 100 mg in 03:30: 11:51 Q12H ABX, [place] NaCl 0.9% 00 :54 First dose Medi maximiliano (NS) 100 mL on Fri Branch MINI-BAG 11/22/20 at 2230, Until Discontinu ed, 100 mL
R eugenio for Anti-Infec tive: Documented Infection< br>Documen zaria Infection Site: Pelvic
Duration of Therapy: 7 days lactated 2020- No 2000mL at 999 Univ ers ringers IV 11-2308 mL/hr, ity of infusion 03:00: 03:00 2,000 mL, Jimmy as 2,000 mL 00 :00 Intravenou Medic al s, ONCE, 1 Branch dose, Fri11/22/20 at 2200, Routine vancomycin 2020- No 15mg/kg 1,500 mg Univers 1500 mg in 11-23 (rounded ity of NS 500 mL 02:45: 18:16 from [place] IV 00 :18 1,633.5 mg Medical Piggyback = 15 mg/kg Bran ch RTU 1,500 ?108.9 mg kg), IV Piggyback, Q12H ABX, First dose on Fri11/22/20 at 2145, Until Discontinu ed
Reas on for Anti-Infec tive: Documented Infection< br>Documen zaria Infection Site: Pelvic
Duration of Therapy: 7 days simethicone Yes 160mg 160 mg, Un shanna (GAS RELIEF 08 Oral, ity of (SIMETHICON 02:00: PC[place]HS, [place] E)) 00 First dose Medical chewable on Fri Branch tablet 160 11/22/20 at mg 2100, Until Discontinu ed, Routine lactated 2020- No 1000mL at 999 [facility] ers ringers IV 11-23 04-08 mL/hr, ity of infusion 02:00: 05:00 1,000 mL, Jimmy as 1,000 mL 00 :00 IV Medical Infusion, [place] ONCE, 1 dose, 11/22/20 at 2100, STAT ondansetron Yes 4mg 4 mg, Slow Univers (ZOFRAN 11-23 IV Push, ity of (PF)) 01:53: Q4HPRN, [place] injection 4 23 Starting Medi maximiliano mg [facility] 11/22/20 [place] at 2052, Until Discontinu ed, Routine, Nausea and Vomiting (N/V) morpHINE Yes 2mg 2 mg, Slow Uni vers injection 2 11-23 IV Push, ity of mg 01:52: Q6HPRN, [place] 43 Starting Medical 11/22/20 [place] at 2051, Until Discontinu ed, Routine, Pain (scale 7-10) KCL 2020- No 40meq 40 mEq, Univers (KLOR-CON 11-22 Oral, ity of M20) tablet 18:00: 17:25 ONCE, 1 [place] 40 mEq 00 :00 dose, [facility] Medical 11/22/20 at Branch 1300, Routine ondansetron 2020- No 4mg 4 mg, Slow Univers (ZOFRAN 11-22- IV Push, ity of (PF)) 17:30: 16:44 ONCE, 1 [place] injection 4 00 :00 dose, Fri Med ical mg 11/22/20 at Branch 1230, VLAD morpHINE 2020-2020- No 4mg 4 mg, Slow Un shanna injection 4 11-22 IV Push, ity of mg 17:30: 16:44 ONCE, 1 [place] 00 :00 dose, [facility] Medical 11/22/20 at Branch 1230, STAT piperacilli 2020-2020- No 4.5g 4.5 g, IV Univers n-tazobacta 4-07 04-07 Piggyback, i ty of m (ZOSYN) 15:45: 17:09 ONCE, 1 [place] 4.5 g in 00 :00 dose, Wed Medica l NaCl 0.9% 11/22/20 at Branc h (NS) 100 mL 1045, 100 MINI-BAG mL
Reas on for Anti-Infec tive: Empiric Therapy for Suspected Infection< br>Empiric Therapy Site: Abdominal< br>Duratio n of therapy: 7 days NaCl 0.9% 2020- No 30mL/kg at 999 Un shanna (NS) bolus 11-22 mL/hr, ity of infusion 15:45: 21:30 2,994 mL [place] 2,994 mL 00 :00 (30 mL/kg Medica l ?99.8 kg), Branch IV Infusion, ONCE, 1 dose, 11/22/20 at 1045, STAT doxycycline 2020- No [id number] 100mg Take 1 Univers hyclate 100 11-21-17 capsule by i ty of mg capsule 00:00: 04:59 mouth [place] 00 :00 every 12 Medical (twelve) Branch hours for 10 days. metroNIDAZO 2020- No [id number] 500mg Take 1 Univers LE 500 mg 11-21-17 tablet by ity of tablet 00:00: 04:59 mouth [place] 00 :00 every 12 Medical (twelve) Branch hours for 10 days. doxycycline 2020- No [id number] 100mg Take 1 Univers hyclate 100 11-21-17 capsule by i ty of mg capsule 00:00: 04:59 mouth [place] 00 :00 every 12 Medical (twelve) Branch hours for 10 days. metroNIDAZO 2020- No [id number] 500mg Take 1 Univers LE 500 mg 11-21-17 tablet by ity of tablet 00:00: 04:59 mouth [place] 00 :00 every 12 Medical (twelve) Branch hours for 10 days. doxycycline 2020- No [id number] 100mg Take 1 Univers hyclate 100 11-21-17 capsule by i ty of mg capsule 00:00: 04:59 mouth [place] 00 :00 every 12 Medical (twelve) Branch hours for 10 days. metroNIDAZO 2020- No [id number] 500mg Take 1 Univers LE 500 mg 11-21-17 tablet by ity of tablet 00:00: 04:59 mouth [place] 00 :00 every 12 Medical (twelve) Branch hours for 10 days. doxycycline 2020-2020- No 100mg Take 1 Un shanna hyclate 100 11-21-17 capsule by i ty of mg capsule 00:00: 04:59 mouth [place] 00 :00 every 12 Medical (twelve) Branch hours for 10 days. metroNIDAZO 2020- No 500mg Take 1 Un shanna LE 500 mg 11-21-17 tablet by ity of tablet 00:00: 04:59 mouth [place] 00 :00 every 12 Medical (twelve) Branch hours for 10 days. doxycycline 2020- No 100mg Take 1 Un shanna hyclate 100 11-21-17 capsule by i ty of mg capsule 00:00: 04:59 mouth [place] 00 :00 every 12 Medical (twelve) Branch hours for 10 days. metroNIDAZO 2020- No 500mg Take 1 Un shanna LE 500 mg 11-21-17 tablet by ity of tablet 00:00: 04:59 mouth [place] 00 :00 every 12 Medical (twelve) Branch hours for 10 days. metroNIDAZO Yes 500mg 500 mg, Un shanna LE (FLAGYL) 4-05 Oral, Q12H it y of tablet 500 23:20: ABX, First [place] mg 00 dose Medical (after Branch last modificati on) on Fri11/20/20 at 1830, Until Discontinu ed, Routine
Reason for Anti-Infec tive: Documented Infection< br>Documen zaria Infection Site: Pelvic
Duration of Therapy: 7 days ondansetron Yes 4mg 4 mg, Slow Univers (ZOFRAN 4-05 IV Push, ity of (PF)) 21:23: Q8HPRN, [place] injection 4 25 Starting Medi maximiliano mg Fri11/20/20 Branch at 1623, Until Discontinu ed, Routine, Nausea and Vomiting (N/V) lactated Yes 1000mL at 20 Univer s ringers IV 4-05 mL/hr, ity of infusion 15:00: 1,000 mL, [place] 1,000 mL 00 IV Medical Infusion, Branch CONTINUOUS , Starting 11/20/20 at 1000, Until Discontinu ed, Routine lactated 2020- No 1000mL at 42 Unive rs ringers IV 11-20 04-05 mL/hr, ity of infusion 12:30: 14:53 1,000 mL, Jimmy as 1,000 mL 00 :55 IV Medical Infusion, Branch CONTINUOUS , Starting 11/20/20 at 0730, Until 11/20/20 at 0953, Routine ondansetron No 4mg 4 mg, Slow Univers (ZOFRAN 11-20 IV Push, ity of (PF)) 00:47: 03:31 ONCE, 1 [place] injection 4 00 :00 dose, [place] Med ical mg 11/19/20 at Branch 2000, VLAD doxycycline Yes 100mg 100 mg, Un shanna hyclate 04 Oral, ity of (Vibramycin 11:00: Q12HA2, Jimmy as ) capsule 00 First dose Medi maximiliano 100 mg on [facility] 11/19/20 at 0600, Until Discontinu ed, VLAD
Re ason for Anti-Infec tive: Documented Infection< br>Documen zaria Infection Site: Pelvic
Duration of Therapy: 7 days metroNIDAZO 2020- No 500mg 500 mg, U nivers LE (FLAGYL) 11-19 Oral, Q8H, i ty of tablet 500 03:00: 14:53 First dose [place] mg 00 :38 on [facility] 11/18/20 at Branch 2200, Until Discontinu ed, Routine
Reason for Anti-Infec tive: Documented Infection< br>Documen zaria Infection Site: Pelvic
Duration of Therapy: 7 days cefOXitin No 2g 2 g, IV Univ ers (MEFOXIN) 2 11-1905 Piggyback, i ty of g in NaCl 02:15: 14:53 Q6H ABX, [place] as 0.9% (NS) 00 :38 First dose Medi maximiliano 100 mL on [facility] MINI-BAG 11/18/20 at 2115, Until Discontinu ed, 100 mL
Reas on for Anti-Infec tive: Documented Infection< br>Documen zaria Infection Site: Pelvic
Duration of Therapy: 7 days simethicone 0 Yes 160mg 160 mg, Un shanna (GAS RELIEF 4-04 Oral, ity of (SIMETHICON 02:00: PC+HS, [place] E)) 00 First dose Medical chewable on Sat Branch tablet 160 11/18/20 at mg 2100, Until Discontinu ed, Routine docusate Yes 100mg 100 mg, Unive rs (COLACE) 4-04 Oral, ity of capsule 100 01:15: Q12H, [place] mg 00 First dose Medical on Sat Branch 11/18/20 at 2014, Until Discontinu ed, Routine lactated 2020- No 1000mL at 125 Univ ers ringers IV - 04-05 mL/hr, ity of infusion 01:15: 12:20 1,000 mL, [place] as 1,000 mL 00 :47 IV Medical Infusion, Branch CONTINUOUS , Starting 11/18/20 at 2014, Until 11/20/20 at 0720, Routine HYDROcodone 0 Yes 1{tbl} 1 tablet, Univers -acetaminop 4-04 Oral, ity of hen (NORCO 01:05: BIDPRN, [place] 5) 5-325 mg 26 Starting Medi maximiliano tablet 1 11/18/20 Branc h tablet at 2005, Until Discontinu ed, Routine, Pain (scale 7-10) ibuprofen 0 Yes 600mg 600 mg, Univ ers (IBU) 4-04 Oral, ity of tablet 600 00:58: Q6HPRN, [place] mg 18 Starting Medical 11/18/20 Branch at 1957, Until Discontinu ed, Routine, Pain (scale 4-6) acetaminoph 0 Yes 650mg 650 mg, Un shanna en 4-04 Oral, ity of (TYLENOL) 00:58: Q6HPRN, [place] tablet 650 03 Starting Medic al mg 11/18/20 Branch at 1957, Until Discontinu ed, Routine, Pain (scale 1-3) enoxaparin 2020- No 40mg 40 mg, Univ ers (LOVENOX) 11-18 Subcutaneo ity of injection 21:00: 01:31 us, Q24H, [place] 40 mg 00 :24 First dose Medical on Sat Branch 11/18/20 at 1600, Until Discontinu ed, Routine metoprolol 2020- No 12.5mg 12.5 mg, Univers tartrate 11-18 Oral, BID, ity of (LOPRESSOR) 21:00: 01:13 First dose [place] tablet 12.5 00 :00 on Sat Medica l mg 11/18/20 at Branch 1600, Until Discontinu ed, Routine oxyCODONE 2020- No 5mg 5 mg, Univer s immediate 11-18 Oral, ity of release 20:19: 01:03 Q6HPRN, [place] tablet 5 mg 21 :34 Starting Medi maximiliano 11/18/20 Branch at 1519, Until 11/18/20 at 2003, Routine, Pain (scale 7-10)
F aculty member approving Restricted medication : FISH, [place] iohexol 2020- No [id number] 80mL 80 mL, Un shanna (OMNIPAQUE 11-18 Intravenou it y of 350 BULK-75 19:00: 18:35 s, ONCE, 1 [place] mL) 00 :00 dose, Sat Medical injection 11/18/20 at Branc h 80 mL 1400, Routine NaCl 0.9% 2020- No IV Univers (NS) IV 11-18 Infusion, ity of infusion 17:15: 20:00 at 200 [place] 00 :00 mL/hr, Medical ONCE, 1 Branch dose, 11/18/20 at 1215, Routine
1 liter
doxycycline 2020- No 100mg 100 mg, U nivers hyclate 11-17 Oral, ity of (Vibramycin 13:00: 01:03 Q12H, [place] ) capsule 00 :34 First dose Medi maximiliano 100 mg on Fri Branch 11/17/20 at 0800, Until Discontinu ed, Routine
Reason for Anti-Infec tive: Documented Infection< br>Documen zaria Infection Site: Pelvic
Duration of Therapy: Other (see Comments) ampicillin- 2020- No 3g 3 g, IV Un shanna sulbactam 11-17 Piggyback, ity of (UNASYN) 3 07:15: 01:03 Q6H ABX, [place] g in NaCl 00 :34 First dose Medi maximiliano 0.9% (NS) on Fri Branch 100 mL 11/17/20 at MINI-BAG 0215, Until Discontinu ed, 100 mL
Reas on for Anti-Infec tive: Documented Infection< br>Documen zaria Infection Site: Pelvic
Duration of Therapy: Other (see Comments) acetaminoph 2020- No 1000mg 1,000 mg, Univers en 11-17 Oral, ity of (TYLENOL) 07:00: 01:36 Q6HPRN, [place] tablet 00 :15 Starting Medical 1,000 mg 11/17/20 Branc h at 0200, Until 11/18/20 at 2036, Routine, Pain (scale 1-3), Temp > 38.5 C ibuprofen 2020- No 800mg 800 mg, Uni vers (IBU) 11-1703 Oral, ity of tablet 800 05:37: 20:20 Q8HPRN, [place] as mg 47 :20 Starting Medical 11/17/20 Branch at 0037, Until 11/18/20 at 1520, Routine, Pain (scale 4-6) NaCl 0.9% 2020- No 1000mL at 125 Uni vers (NS) IV 11-1703 mL/hr, ity of infusion 05:15: 16:08 Intravenou [place] 1,000 mL 00 :32 s, Medical CONTINUOUS Branch , Starting 11/17/20 at 0015, Until 11/18/20 at 1108, Routine morpHINE 2020- No 4mg 4 mg, Slow Un shanna injection 4 11-17 IV Push, ity of mg 03:45: 02:48 ONCE, 1 [place] 00 :00 dose, Radhika Medical 11/16/20 at Branch 2245, STAT NaCl 0.9% 2020- No 1000mL at 999 Uni vers (NS) IV 11-1702 mL/hr, ity of infusion 03:45: 02:47 Intravenou [place] 1,000 mL 00 :00 s, ONCE, 1 Medic al dose, Radhika [place] 11/16/20 at 2245, Routine doxycycline 2020- No 100mg 100 mg, U nivers hyclate 11-1702 Oral, ity of (Vibramycin 02:15: 01:29 ONCE, 1 [place] ) capsule 00 :00 dose, [facility] Medic al 100 mg 11/16/20 at Branch 2115, VLAD
Re ason for Anti-Infec tive: Empiric Therapy for Suspected Infection< br>Empiric Therapy Site: Pelvic
Duration of therapy: 72 hours ampicillin- 2020- No 3000mg 3,000 mg, Univers sulbactam 11-17 IV ity of (UNASYN) 02:15: 02:02 Piggyback, [place] 3,000 mg in 00 :00 ONCE, 1 Medic al NaCl 0.9% dose, [facility] h (NS) 100 mL 11/16/20 at MINI-BAG 2115, 100 mL
Reas on for Anti-Infec tive: Empiric Therapy for Suspected Infection< br>Empiric Therapy Site: Pelvic
Duration of therapy: 72 hours ondansetron 2020- No 4mg 4 mg, Slow Univers (ZOFRAN 11-17 IV Push, ity of (PF)) 01:00: 00:13 ONCE, 1 [place] injection 4 00 :00 dose, [facility] Med ical mg 11/16/20 at Branch 1999, VLAD morpHINE 2020- No 4mg 4 mg, Slow Un shanna injection 4 11-17 IV Push, ity of mg 01:00: 00:14 ONCE, 1 [place] 00 :00 dose, Radhika Medical 11/16/20 at Branch 1999, STAT acetaminoph 2020- No 650mg 650 mg, U nivers en 11-17 Oral, ity of (TYLENOL) 01:00: 00:13 ONCE, 1 [place] tablet 650 00 :00 dose, Radhika Medi maximiliano mg 11/16/20 at Branch 2000, VLAD iohexol 2020- No [id number] 120mL 120 mL, Univers (OMNIPAQUE 11-17 Intravenou it y of 350 00:45: 00:29 s, ONCE, 1 [place] BULK-150 00 :00 dose, Radhika Medica l mL) 11/16/20 at Branch injection 1945, 120 mL Routine NaCl 0.9% 2020- 1000mL at 999 Uni vers (NS) bolus 11-17 mL/hr, ity of infusion 00:00: 01:25 1,000 mL, Jimmy as 1,000 mL 00 :00 IV Medical Infusion, Branch ONCE, 1 dose, Radhika 11/16/20 at 1900, VLAD No known No Univers medications ity [facility] No known No Univers medications [facility] [place] [facility] Vital Signs Vital Name Observation Time Observation Value Comments Source WEIGHT 2020-12-02 06:00:00 113.036 kg WEIGHT 2020-12-02 06:00:00 113.036 kg Systolic blood 2020-11-27 16:35:00 134 mm[Hg] Univer sity [facility] Diastolic blood 2020-11-27 16:35:00 99 mm[Hg] [facility] Heart rate 2020-11-27 16:35:00 101 /min [facility] Oxygen saturation in 2020-11-27 16:35:00 95 /min [facility] Arterial blood by [facility] Pulse oximetry [place] Body temperature 2020-11-27 16:34:00 35.83 Yvonne [facility] Respiratory rate 2020-11-27 09:00:00 20 /min [facility] Body height 2020-11-23 03:00:00 167.6 cm [facility] Body weight 2020-11-22 23:08:00 108.863 kg [facility] BMI 2020-11-22 23:08:00 38.74 kg/m2 [facility] Systolic blood 2020-11-22 19:36:59 111 mm[Hg] Univer sity of [facility] Diastolic blood 2020-11-22 19:36:59 79 mm[Hg] Unive rsity of pressure [place] [facility] [place] Heart rate 2020-11-22 19:36:59 116 /min Universi ty of [place] [facility] [place] Respiratory rate 2020-11-22 19:36:59 30 /min Univ ersity of [place] [facility] Oxygen saturation in 2020-11-22 19:36:59 95 /min University of Arterial blood by [facility] maximiliano Pulse oximetry Branch Body temperature 2020-11-22 15:02:00 37.11 Yvonne Univ ersity of [place] [facility] [place] Body weight 2020-11-22 15:02:00 99.791 kg Universi ty of [place] [facility] [place] BMI 2020-11-22 15:02:00 41.57 kg/m2 Universi ty of [place] [facility] Systolic blood 2020-11-21 13:21:00 120 mm[Hg] Univer sity of pressure [place] [facility] Diastolic blood 2020-11-21 13:21:00 82 mm[Hg] Unive rsity of pressure [place] [facility] Heart rate 2020-11-21 13:21:00 110 /min Universi ty of [place] [facility] Body temperature 2020-11-21 13:21:00 36.28 Yvonne Univ ersity of [place] [facility] Oxygen saturation in 2020-11-21 13:21:00 96 /min University of Arterial blood by [facility] Pulse oximetry Branch Respiratory rate 2020-11-21 11:46:00 19 /min Univ ersity of [place] [facility] Body height 2020-11-19 00:46:00 154.9 cm Universi ty of [place] [facility] Body weight 2020-11-19 00:46:00 99.791 kg Universi ty [facility] BMI 2020-11-19 00:46:00 41.57 kg/m2 [facility] Procedures Procedure Date / Time Performing Clinician Source Performed AUTHORIZATION FOR RELEASE 2021-01-03 05:01:00 Doctor Unassigned, No University [facility] OF PHI Name Medical [facility] PATIENT FINANCIAL 2020-12-07 18:34:14 Doctor Unassigned, No [facility] POLICY Name Medical [place] NO SHOW OR MISSED 2020-12-07 18:33:52 Doctor Unassigned, No Univ [facility] APPOINTMENT POLICY Name Medical [facility] h ACKNOWLEDGEMENT COMP. METABOLIC PANEL 2020-11-27 09:57:00 Betzy Boogie [facility] ([id number]) [facility] CBC WITH DIFF 2020-11-27 09:57:00 Betzy Boogie [facility] COMP. METABOLIC PANEL 2020-11-25 08:19:00 Yennifer Rubio [facility] ([id number]) [facility] CBC WITH DIFF 2020-11-25 08:19:00 Yennifer Rubio [facility] f [place] [facility] CLOSTRIDIUM DIFFICILE 2020-11-24 23:06:00 Wiley Montemayor [facility] US DUPLEX VENOUS ARM RIGHT 2020-11-24 19:22:58 Michael Montemayor [facility] - BY VASCULAR LAB [facility] VANCOMYCIN TROUGH 2020-11-24 17:46:00 Debbie [facility] MAGNESIUM 2020-11-24 11:53:00 Debbie [facility] COMP. METABOLIC PANEL 2020-11-24 11:53:00 Wiley Montemayor [facility] ([id number]) [facility] TOTAL BETA HCG ASSAY 2020-11-24 11:53:[address] [facility] CBC WITH DIFF 2020-11-24 11:53:00 Wiley [facility] BLOOD CULTURE SCREEN 2020-11-24 05:18:00 Get Davis [facility] INHIBIN-A (DIMER) 2020-11-23 22:21:00 Wiley Montemayor [facility] LACTIC ACID WHOLE BLOOD 2020-11-23 22:21:00 Wiley Montemayor [facility] BLOOD CULTURE SCREEN 2020-11-23 17:46:00 Get Davis [facility] COMP. METABOLIC PANEL 2020-11-23 17:46:00 Debbie [facility] ([id number]) [facility] CBC WITH DIFF 2020-11-23 17:46:00 Debbie [facility] EBV AB TO EARLY(D)AG,IGG 2020-11-23 17:45:00 Get Davis [facility] EBV QUANTITATIVE PCR 2020-11-23 17:45:00 Get Davis [facility] ALPHA FETOPROTEIN 2020-11-23 17:44:00 Wiley [facility]emayor [facility] EBV NUCLEAR ANTIGEN IGG 2020-11-23 17:44:00 Get Davis [facility] TEST [facility] HSV 1 AND 2 GLYCOPROTEIN G 2020-11-23 17:44:00 Get Davis [facility] IGG [facility] US ABDOMEN LIMITED 2020-11-23 14:26:33 Coby, [facility] LACTIC ACID WHOLE BLOOD 2020-11-23 09:28:00 Haley [facility] XR CHEST 1 VW 2020-11-23 06:20:00 Coby, [facility] CANCER ANTIGEN-GI (CA 2020-11-23 05:48:00 Wiley Montemayor [facility] 19-9[facility] LACTATE DEHYDROGENASE 2020-11-23 05:48:00 Coby, [facility] CARCINOEMBRYONIC ANTIGEN 2020-11-23 05:48:00 Sim [facility] CA-125 2020-11-23 05:48:00 Sim [facility] ACETAMINOPHEN 2020-11-23 05:48:00 Coby, [facility] LACTIC ACID WHOLE BLOOD 2020-11-23 05:48:00 Coby, [facility] CT ABDOMEN PELVIS W 2020-11-23 05:14:28 Mary Araceli [facility] CONTRAST [facility] GC & CHLAMYDIA AMPLIFIED 2020-11-23 04:52:00 Rashmi Hernandezzie [facility] ASSAY [facility] ETHANOL 2020-11-23 03:54:00 Coby, [facility] EBV VIRAL CAPSID IGM 2020-11-23 03:54:00 Get Davis [facility] ANTIBODY [facility] CYTOMEGALOVIRUS ANTIBODY 2020-11-23 03:54:00 Get Davis [facility] IGM [facility] CYTOMEGALOVIRUS ANTIBODY 2020-11-23 03:54:00 Get Davis [facility] IGG [facility] VZV ANTIBODY SCREEN 2020-11-23 03:54:00 Get Davis [facility] ANTI-NUCLEAR ANTIBODY 2020-11-23 03:54:00 Yrn Tenorio [facility] SCREEN [facility] HEPATITIS B SURFACE 2020-11-23 03:54:00 Debbie [facility] ANTIBODY [facility] HEPATITIS B SURFACE 2020-11-23 03:54:00 Debbie [facility] ANTIGEN [facility] HCV ANTIBODY 2020-11-23 03:54:00 Debbie [facility] HEPATITIS B CORE ANTIBODY 2020-11-23 03:54:00 Debbie [facility] IGM [facility] HAV ANTIBODY (IGG AND IGM) 2020-11-23 03:54:00 Debbie [facility] MRSA / MSSA SCREEN BY PCR, 2020-11-23 03:54:00 Katherine Hernandez [facility] GALV ONLY - SYPHILIS 2020-11-23 03:54:00 Get Davis [facility] IGG/IGM [facility] AC ABG + LACTIC ACID 2020-11-23 01:50:00 Araceli [facility] PHOSPHORUS 2020-11-23 01:35:00 Araceli Hernandez [facility] AMYLASE 2020-11-23 01:35:00 Araceli Hernandez [facility] LIPASE 2020-11-23 01:35:00 Araceli Hernandez [facility] MAGNESIUM 2020-11-23 01:35:00 Araceli Hernandez [facility] HEPATIC FUNCTION PANEL 2020-11-23 01:35:00 Kothmann, AraceliCount includes the [facility] ([id number]) (ALB,T.PRO,BILI Medical Branch T,BU/BC,ALT,AST,ALK PHOS) BASIC METABOLIC PANEL (NA, 2020-11-23 01:35:00 Katherine Hernandez [facility] K, CL, CO2, GLUCOSE, BUN, Medica l Branch CREATININE, CA) CBC WITH DIFF 2020-11-23 01:35:00 Araceli Hernandez [facility] PROTHROMBIN TIME / INR 2020-11-23 01:35:00 Araceli Hernandez Un [facility] ACTIVATED PARTIAL THRMPLAS 2020-11-23 01:35:00 Katherine Hernandez [facility] CATHERINE [facility] FIBRINOGEN 2020-11-23 01:35:00 Araceli Hernandez [facility] URINALYSIS 2020-11-22 16:23:00 Wilson Loera [facility] US PELVIS COMPLETE WITH 2020-11-22 16:09:33 Dontrell Vasquez [facility] TRANSVAGINAL [facility] ASSIGNMENT OF BENEFITS 2020-11-22 15:30:57 Doctor Unassigned, No [facility] COVID-19 (ID NOW RAPID 2020-11-22 15:26:00 Wilson Loera [facility] TESTING) Medical [place] LACTIC ACID WHOLE BLOOD 2020-11-22 15:21:00 Wilson Loera [facility] BLOOD CULTURE SCREEN 2020-11-22 15:19:00 Wilson Loera [facility] COMP. METABOLIC PANEL 2020-11-22 15:19:00 Wilson Loera [facility] ([id number]) Medical Branch CBC WITH DIFF 2020-11-22 15:19:00 Wilson Loera [facility] BLOOD CULTURE SCREEN 2020-11-22 15:00:00 Wilson Loera [facility] CONSENT/REFUSAL FOR 2020-11-22 14:49:39 Doctor Unassigned, No Un [facility] DIAGNOSIS AND TREATMENT [facility] HOSPITAL ADMISSION 2020-11-22 05:01:00 Doctor Unassigned, No [facility] CBC WITH DIFF 2020-11-21 10:29:00 Debbie, [facility] CBC WITH DIFF 2020-11-20 10:16:00 Brenda Kaplan [facility] MAGNESIUM 2020-11-19 08:15:00 Danish Resendiz [facility] BASIC METABOLIC PANEL (NA, 2020-11-19 08:15:00 Gale Botello [facility] K, CL, CO2, GLUCOSE, BUN, Medica l Branch CREATININE, CA) CBC WITH DIFF 2020-11-19 08:15:00 Gale Botello [facility] PROTHROMBIN TIME / INR 2020-11-19 02:50:00 Isaac Barboza [facility] ACTIVATED PARTIAL THRMPLAS 2020-11-19 02:50:00 Isaac Barboza [facility] FIBRINOGEN 2020-11-19 02:50:00 Isaac Barboza [facility] TROPONIN I 2020-11-19 02:45:00 Gale Botello [facility] BASIC METABOLIC PANEL (NA, 2020-11-19 02:45:00 Gale Botlelo [facility] K, CL, CO2, GLUCOSE, BUN, Medica l [place] CREATININE, CA) CBC WITH DIFF 2020-11-19 02:45:00 Gale Botello [facility] LACTIC ACID WHOLE BLOOD 2020-11-19 02:45:00 Gale Botello [facility] MRSA / MSSA SCREEN BY PCR, 2020-11-19 02:45:00 Gale Botello [facility] COVID-19 (ID NOW RAPID 2020-11-19 02:45:00 Gale Botello [facility] TESTING) Medical Branch LAB ONLY COVID 2020-11-19 02:45:00 Gale Botello [facility] HB ECG ROUTINE & RHYTHM 2020-11-19 02:21:59 Gale Botello [facility] CT CHEST PULMONARY 2020-11-18 18:44:55 Danish Resendiz [facility] ANGIOGRAM Medical Branch D-DIMER 2020-11-18 14:46:00 José Antonio [facility] CBC WITH DIFF 2020-11-18 14:06:00 Adum, Caitlin Chang [facility] HB ECG ROUTINE & RHYTHM 2020-11-18 14:02:16 José Antonio [facility] STRIP [facility] THYROID STIMULATING 2020-11-17 14:01:00 Danish Resendiz [facility] HORMONE [facility] HEPATITIS B SURFACE 2020-11-17 14:01:00 Adum, Caitlin Chang [facility] ANTIGEN [facility] HCV ANTIBODY 2020-11-17 14:01:00 Adum, Caitlin Chang [facility] ADC CLC OR LCC ONLY - WET 2020-11-17 14:01:00 Adum, [facility] ADC OR ANASTACIO ONLY - RPR 2020-11-17 14:01:00 Adum, [facility]-AB WITH REFLEX 2020-11-17 14:01:00 Adum, [facility] GC & CHLAMYDIA AMPLIFIED 2020-11-17 03:49:00 Princess Hatfield [facility] COVID-19 (ID NOW RAPID 2020-11-17 02:47:00 Princess Hatfield [facility] TESTING) Medical Branch LAB ONLY COVID 2020-11-17 02:47:00 Princess Hatfield [facility] INTERPRETATION [facility] US OVARY TORSION 2020-11-17 02:15:59 Princess Hatfield [facility] BLOOD CULTURE SCREEN 2020-11-17 01:28:00 Princess Hatfield [facility] BLOOD CULTURE SCREEN 2020-11-17 01:13:00 Princess Hatfield [facility] CT ABDOMEN PELVIS W 2020-11-17 00:33:08 Ness Russ [facility] CONTRAST [facility] URINALYSIS 2020-11-17 00:10:00 Ness Russ [facility] POCT TEST 2020-11-17 00:10:00 Ness Russ Unive rsity [facility] LIPASE 2020-11-17 00:04:00 Ness Russ [facility] HEPATIC FUNCTION PANEL 2020-11-17 00:04:00 [id number] (ALB,T.PRO,BILI [facility] T,BU/BC,ALT,AST,ALK PHOS) BASIC METABOLIC PANEL (NA, 2020-11-17 00:04:00 Ness Russ [facility] K, CL, CO2, GLUCOSE, BUN, Medica l Branch CREATININE, CA) CBC WITH DIFF 2020-11-17 00:04:00 Ness Russ [facility] NOTICE OF PRIVACY 2020-11-16 23:32:23 [facility], [facility]AL FOR 2020-11-16 23:31:57 Doctor Unassigned, No [facility] HOSPITAL ADMISSION 2020-11-16 05:01:00 [facility], [facility] Start End Encounter Admission Attending Care Care Encounter Source Date/Time Date/Time Type Type Clinicians Facility Department ID 2021-05-26 [facility] [id number] 13:48:25 [facility] 2021-01-03 2021-01-03 Orders Doctor TEJADA [id number] Univers 00:00:00 00:00:00 Only UnassignedJAZMIN [id number] ity [facility] [id number] Jimmy as [id number] [address] 2020-12-29 2020-12-29 Outpatient Anastacio DERAS [facility] [id number] Univers 00:00:00 00:00:00 [facility] 2020-12-07 2020-12-07 Orders Doctor TERRELL [id number] Univers 00:00:00 00:00:00 Only UnassignedJAZMIN [id number] ity [facility] [id number] Jimmy as [phone] [facility] 009 Branch 2020-11-28 2020-11-28 Transition Dai Kenney [id number] Univers 00:00:00 00:00:00 of Care An Alvarado [id number] [place]y [id number] [id number] [facility] 403 Branch 2020-11-22 2020-11-27 [facility] Margaret Cha [id number] Univers 18:11:00 19:10:00 Encounter Dale Jazmin [id number] ity of [facility] [id number] Jimmy as [id number] [facility] 092 Branch 2020-11-22 2020-11-22 Emergency X [facility] ERT [id number] Univers 18:05:00 18:05:00 ity of [place] [facility] 2020-11-22 2020-11-22 [facility] [id number] Univers 10:31:00 16:50:00 Dontrell Garcia [id number] ity of [id number] [phone] [facility] 084 Branch 2020-11-22 2020-11-22 Emergency X [facility] ERT [id number] Univers 09:48:00 09:48:00 ity of [facility] 2020-11-22 2020-11-22 Transition Dai Kenney [id number] Univers 00:00:00 00:00:00 of Care An Alvarado [id number] [id number] [id number] [facility] 403 Branch 2020-11-16 2020-11-21 [facility] Ness Russ 1.2.84 0.114 [id number] Univers 18:49:00 12:00:00 Encounter Princess Hatfield [id number] ity of Caitlin Zamorano [facility] [id number] [place] Sharmaine Cha [id number] Medical 2 Branch 2020-11-16 2020-11-16 Emergency X [facility] ERT [id number] Univers 18:31:00 18:31:00 ity of [place] [facility] Results Test Description Test Time Test Comments Results Result Comments Source CBC W/PLT COUNT & AUTO DIFFERENTIAL 2020-12-02 08:11:00 Test Item Value Reference Range Interpretation Comme nts WHITE BLOOD CELL COUNT (BEAKER) (test code = 775) 8.0 K/ L 4.0- 10.0 RED BLOOD CELL COUNT (BEAKER) (test code = 761) 5.03 M/ L 4.00-5 .00 H HEMOGLOBIN (BEAKER) (test code = 410) 9.8 GM/DL 12.0-15.5 L HEMATOCRIT (BEAKER) (test code = 411) 35.1 % 36.0-46.0 L MEAN CORPUSCULAR VOLUME (BEAKER) (test code = 753) 69.8 fL 82. 0-99.0 L MEAN CORPUSCULAR HEMOGLOBIN (BEAKER) (test code = 751) 19.5 pg 27.0-33.0 L MEAN CORPUSCULAR HEMOGLOBIN CONC (BEAKER) (test code = 752) 27.9 GM/DL 32.0-36.0 L RED CELL DISTRIBUTION WIDTH (BEAKER) (test code = 412) 24.2 % 12.0-15.0 H PLATELET COUNT (BEAKER) (test code = 756) 420 K/CU MM 150-430 MEAN PLATELET VOLUME (BEAKER) (test code = 754) 10.4 fL 6.0-11 .5 NUCLEATED RED BLOOD CELLS (BEAKER) (test code = 413) 0 /100 WBC 0 -0 NEUTROPHILS RELATIVE PERCENT (BEAKER) (test code = 429) 62 % LYMPHOCYTES RELATIVE PERCENT (BEAKER) (test code = 430) 23 % MONOCYTES RELATIVE PERCENT (BEAKER) (test code = 431) 10 % EOSINOPHILS RELATIVE PERCENT (BEAKER) (test code = 432) 3 % BASOPHILS RELATIVE PERCENT (BEAKER) (test code = 437) 1 % NEUTROPHILS ABSOLUTE COUNT (BEAKER) (test code = 670) 4.95 K/ L 1.80-8.00 LYMPHOCYTES ABSOLUTE COUNT (BEAKER) (test code = 414) 1.82 K/ L 1.48-4.50 MONOCYTES ABSOLUTE COUNT (BEAKER) (test code = 415) 0.82 K/ L 0. 00-1.30 EOSINOPHILS ABSOLUTE COUNT (BEAKER) (test code = 416) 0.22 K/ L 0.00-0.50 BASOPHILS ABSOLUTE COUNT (BEAKER) (test code = 417) 0.10 K/ L 0. 00-0.20 IMMATURE GRANULOCYTES-RELATIVE PERCENT (BEAKER) (test code 1 % 0-0 H = 2801) (MANUAL DIFFERENTIAL)2020-12-02 08:11:00 Test Item Value Reference Range Interpretation Comments TOTAL COUNTED (BEAKER) (test code = 1351) WBC MORPHOLOGY (BEAKER) (test code Normal = 487) PLT MORPHOLOGY (BEAKER) (test code Normal = 486) ANISOCYTOSIS (BEAKER) (test code = 3+ many 961) ELLIPTOCYTES (BEAKER) (test code = 1+ few 962) HYPOCHROMIA (BEAKER) (test code = 3+ many 963) MICROCYTES (BEAKER) (test code = 4+ marked 965) TARGET CELLS (BEAKER) (test code = 1+ few 480) HEPATIC FUNCTION [id number] 07:47:00 Test Item Value Reference Range Interpretation Comments TOTAL PROTEIN (BEAKER) (test code = 5.9 gm/dL 6.0-8.5 L 770) ALBUMIN (BEAKER) (test code = 1145) 2.9 g/dL 3.5-5.0 L BILIRUBIN TOTAL (BEAKER) (test code 0.7 mg/dL 0.1-1.2 = 377) BILIRUBIN DIRECT (BEAKER) (test 0.4 mg/dL 0.0-0.4 code = 706) ALKALINE PHOSPHATASE (BEAKER) (test 72 U/L 30-115 code = 346) AST (SGOT) (BEAKER) (test code = 24 U/L 5-40 353) ALT (SGPT) (BEAKER) (test code = 76 U/L 5-50 H 347) [employer] ID - BRUCEBASIC METABOLIC [id number] 07:45:00 Test Item Value Reference Range Interpretation Comments SODIUM (BEAKER) 141 meq/L 135-148 (test code = 381) POTASSIUM (BEAKER) 3.7 meq/L 3.6-5.5 (test code = 379) CHLORIDE (BEAKER) 104 meq/L 98-106 (test code = 382) CO2 (BEAKER) (test 25 meq/L 20-29 code = 355) BLOOD UREA NITROGEN 14 mg/dL 10-26 (BEAKER) (test code = 354) CREATININE (BEAKER) 0.62 mg/dL 0.50-1.20 (test code = 358) GLUCOSE RANDOM 99 mg/dL 70-110 (BEAKER) (test code = 652) CALCIUM (BEAKER) 8.2 mg/dL 8.5-10.5 L (test code = 697) EGFR (BEAKER) (test 108 mL/min/1.73 ESTIM ATED GFR IS code = 1092) sq m NOT ACCURATE CREATININE CLEARANCE IN PREDICTING GLOMERULAR FILTRATION RATE . ESTIMATED GFR I S NOT APPLICABLE FOR DIALYSIS PATIEN TS. [employer]person [employer] ID - BRUCEURINALYSIS W/ REFLEX URINE [id number] 12:37:00 Test Item Value Reference Range Interpretation Comments COLOR (BEAKER) (test code = 470) Yellow CLARITY (BEAKER) (test code = 469) Clear SPECIFIC GRAVITY UA (BEAKER) (test 1.015 1.001-1.035 code = 468) PH UA (BEAKER) (test code = 467) 8.5 5.0-8.0 H PROTEIN UA (BEAKER) (test code = Negative Negative 464) GLUCOSE UA (BEAKER) (test code = Negative Negative 365) KETONES UA (BEAKER) (test code = Negative Negative 371) BILIRUBIN UA (BEAKER) (test code = Negative Negative 462) BLOOD UA (BEAKER) (test code = 461) Negative Negative NITRITE UA (BEAKER) (test code = Negative Negative 465) LEUKOCYTE ESTERASE UA (BEAKER) Negative Negative (test code = 466) UROBILINOGEN UA (BEAKER) (test code 0.2 mg/dL 0.2-1.0 = 463) BACTERIA (BEAKER) (test code = 517) Many MUCUS (BEAKER) (test code = 1574) Many RBC UA-MANUAL (BEAKER) (test code = <5 /HPF 1659) WBC UA-MANUAL (BEAKER) (test code = <5 /HPF 1661) SQUAMOUS EPITHELIAL MANUAL (BEAKER) <5 /HPF (test code = 1663) SOURCE(BEAKER) (test code = 2795) PERIPHERAL BLOOD SMEAR - PATHOLOGIST [id number] 11:49:00 Test Item Value Reference Range Interpretation Comments RBC MORPHOLOGY Anisocytosis (BEAKER) (test code = 2846) RBC MORPHOLOGY Hypochromasia (BEAKER) (test code = 95887) RBC MORPHOLOGY Microcytosis (BEAKER) (test code = 38104) RBC MORPHOLOGY Target Cells (BEAKER) (test code = 49676) RBC MORPHOLOGY See comment (BEAKER) (test code = 175492) WBC MORPHOLOGY Unremarkable (BEAKER) (test code = 2847) PLT MORPHOLOGY Large Platelets (BEAKER) (test code = 2848) PERIPHERAL SMR REVIEW Mildly hypochromic RBCs (BEAKER) (test code = with anisocytosis, 2640) scattered microcytes and target cells. Negative for fragmented RBCs. [id number] Isaias Floyd M.D. (BEAKER) (test code = (electronic signature) 2849) IRON, TIBC, % SAT. (WITHOUT FERRITIN)2020-12-01 09:39:00 Test Item Value Reference Range Interpretation Comments IRON (BEAKER) (test code = 547) 98.0 ug/dL 40.0-160.0 TOTAL IRON BINDING CAPACITY 358 ug/dL 250-450 (BEAKER) (test code = 769) IRON % SATURATION (2) (BEAKER) 27 % 20-55 (test code = 2590) [employer]person [employer] ID - GRZEGORZ CBASIC METABOLIC [id number] 05:07:00 Test Item Value Reference Range Interpretation Comments SODIUM (BEAKER) 139 meq/L 135-148 (test code = 381) POTASSIUM (BEAKER) 4.2 meq/L 3.6-5.5 Specimen slightly (test code = 379) hemolyzed CHLORIDE (BEAKER) 102 meq/L 98-106 (test code = 382) CO2 (BEAKER) (test 24 meq/L 20-29 code = 355) BLOOD UREA NITROGEN 11 mg/dL 10-26 (BEAKER) (test code = 354) CREATININE (BEAKER) 0.61 mg/dL 0.50-1.20 Specimen slightly (test code = 358) hemolyzed GLUCOSE RANDOM 149 mg/dL 70-110 H (BEAKER) (test code = 652) CALCIUM (BEAKER) 8.6 mg/dL 8.5-10.5 (test code = 697) EGFR (BEAKER) (test 110 mL/min/1.73 ESTIM ATED GFR IS code = 1092) sq m NOT ACCURATE CREATININE CLEARANCE IN PREDICTING GLOMERULAR FILTRATION RATE . ESTIMATED GFR I S NOT APPLICABLE FOR DIALYSIS PATIEN TS. [employer]person [employer] ID - NLYLEHEPATIC FUNCTION [id number] 05:07:00 Test Item Value Reference Range Interpretation Comments TOTAL PROTEIN (BEAKER) 6.7 gm/dL 6.0-8.5 Speci men slightly (test code = 770) hemolyzed ALBUMIN (BEAKER) (test 3.0 g/dL 3.5-5.0 L Speci men slightly code = 1145) hemolyzed BILIRUBIN TOTAL 1.0 mg/dL 0.1-1.2 Specimen sli ghtly (BEAKER) (test code = hemoly zed 377) BILIRUBIN DIRECT 0.6 mg/dL 0.0-0.4 H Specimen sl ightly (BEAKER) (test code = hemoly zed 706) ALKALINE PHOSPHATASE 78 U/L 30-115 (BEAKER) (test code = 346) AST (SGOT) (BEAKER) 23 U/L 5-40 Specimen slightly (test code = 353) hemolyzed ALT (SGPT) (BEAKER) 106 U/L 5-50 H Specimen slightly (test code = 347) hemolyzed [employer] ID - NLYLECBC W/PLT COUNT & AUTO [id number] 04:47:00 Test Item Value Reference Range Interpretation Comments WHITE BLOOD CELL COUNT (BEAKER) 6.1 K/ L 4.0-10.0 (test code = 775) RED BLOOD CELL COUNT (BEAKER) 5.31 M/ L 4.00-5.00 H (test code = 761) HEMOGLOBIN (BEAKER) (test code = 10.2 GM/DL 12.0-15.5 L 410) HEMATOCRIT (BEAKER) (test code = 36.9 % 36.0-46.0 411) MEAN CORPUSCULAR VOLUME (BEAKER) 69.5 fL 82.0-99.0 L (test code = 753) MEAN CORPUSCULAR HEMOGLOBIN 19.2 pg 27.0-33.0 L (BEAKER) (test code = 751) MEAN CORPUSCULAR HEMOGLOBIN CONC 27.6 GM/DL 32.0-36.0 L (BEAKER) (test code = 752) RED CELL DISTRIBUTION WIDTH 23.3 % 12.0-15.0 H (BEAKER) (test code = 412) PLATELET COUNT (BEAKER) (test 440 K/CU MM 150-430 H code = 756) MEAN PLATELET VOLUME (BEAKER) 10.3 fL 6.0-11.5 (test code = 754) NUCLEATED RED BLOOD CELLS 0 /100 WBC 0-0 (BEAKER) (test code = 413) NEUTROPHILS RELATIVE PERCENT 89 % (BEAKER) (test code = 429) LYMPHOCYTES RELATIVE PERCENT 9 % (BEAKER) (test code = 430) MONOCYTES RELATIVE PERCENT 2 % (BEAKER) (test code = 431) EOSINOPHILS RELATIVE PERCENT 0 % (BEAKER) (test code = 432) BASOPHILS RELATIVE PERCENT 0 % (BEAKER) (test code = 437) NEUTROPHILS ABSOLUTE COUNT 5.44 K/ L 1.80-8.00 (BEAKER) (test code = 670) LYMPHOCYTES ABSOLUTE COUNT 0.54 K/ L 1.48-4.50 L (BEAKER) (test code = 414) MONOCYTES ABSOLUTE COUNT (BEAKER) 0.12 K/ L 0.00-1.30 (test code = 415) EOSINOPHILS ABSOLUTE COUNT 0.01 K/ L 0.00-0.50 (BEAKER) (test code = 416) BASOPHILS ABSOLUTE COUNT (BEAKER) 0.00 K/ L 0.00-0.20 (test code = 417) IMMATURE GRANULOCYTES-RELATIVE 1 % 0-0 H PERCENT (BEAKER) (test code = 2801) CBC W/PLT COUNT & AUTO [id number] 07:23:00 Test Item Value Reference Range Interpretation Comments WHITE BLOOD CELL COUNT (BEAKER) 8.3 K/ L 4.0-10.0 (test code = 775) RED BLOOD CELL COUNT (BEAKER) 5.08 M/ L 4.00-5.00 H (test code = 761) HEMOGLOBIN (BEAKER) (test code = 9.9 GM/DL 12.0-15.5 L 410) HEMATOCRIT (BEAKER) (test code = 34.8 % 36.0-46.0 L 411) MEAN CORPUSCULAR VOLUME (BEAKER) 68.5 fL 82.0-99.0 L (test code = 753) MEAN CORPUSCULAR HEMOGLOBIN 19.5 pg 27.0-33.0 L (BEAKER) (test code = 751) MEAN CORPUSCULAR HEMOGLOBIN CONC 28.4 GM/DL 32.0-36.0 L (BEAKER) (test code = 752) RED CELL DISTRIBUTION WIDTH 23.8 % 12.0-15.0 H (BEAKER) (test code = 412) PLATELET COUNT (BEAKER) (test 404 K/CU MM 150-430 code = 756) MEAN PLATELET VOLUME (BEAKER) 10.6 fL 6.0-11.5 (test code = 754) NUCLEATED RED BLOOD CELLS 0 /100 WBC 0-0 (BEAKER) (test code = 413) NEUTROPHILS RELATIVE PERCENT 76 % (BEAKER) (test code = 429) LYMPHOCYTES RELATIVE PERCENT 11 % (BEAKER) (test code = 430) MONOCYTES RELATIVE PERCENT 9 % (BEAKER) (test code = 431) EOSINOPHILS RELATIVE PERCENT 3 % (BEAKER) (test code = 432) BASOPHILS RELATIVE PERCENT 1 % (BEAKER) (test code = 437) NEUTROPHILS ABSOLUTE COUNT 6.32 K/ L 1.80-8.00 (BEAKER) (test code = 670) LYMPHOCYTES ABSOLUTE COUNT 0.90 K/ L 1.48-4.50 L (BEAKER) (test code = 414) MONOCYTES ABSOLUTE COUNT (BEAKER) 0.75 K/ L 0.00-1.30 (test code = 415) EOSINOPHILS ABSOLUTE COUNT 0.22 K/ L 0.00-0.50 (BEAKER) (test code = 416) BASOPHILS ABSOLUTE COUNT (BEAKER) 0.05 K/ L 0.00-0.20 (test code = 417) IMMATURE GRANULOCYTES-RELATIVE 1 % 0-0 H PERCENT (BEAKER) (test code = 2801) (MANUAL DIFFERENTIAL)2020-11-30 07:23:00 Test Item Value Reference Range Interpretation Comments TOTAL COUNTED (BEAKER) (test code = 1351) WBC MORPHOLOGY (BEAKER) (test code = Normal 487) LARGE PLT(BEAKER) (test code = 2156) Present ANISOCYTOSIS (BEAKER) (test code = 1+ few 961) HYPOCHROMIA (BEAKER) (test code = 1+ few 963) MICROCYTES (BEAKER) (test code = 965) 1+ few TARGET CELLS (BEAKER) (test code = 1+ few 480) B-TYPE NATRIURETIC FACTOR (BNP)2020-11-30 06:45:00 Test Item Value Reference Range Interpretation Comments B-TYPE NATRIURETIC PEPTIDE 1020 pg/mL 0-100 H (BEAKER) (test code = 700) [employer] ID - Ness TTROPONIN [id number] 06:44:00 Test Item Value Reference Range Interpretation Comments TROPONIN I (BEAKER) (test code = 0.37 ng/mL 0.00-0.03 HH 397) Troponin I (TnI) levels must be interpreted in the context of the presenting symptoms and the clinical findings. Elevated TnI levels indicate myocardial damage, but are not specific for ischemic heart disease. Elevated TnI levels are seen in patients with other cardiac conditions (including myocarditis and congestive heart failure), and slight TnI elevations occur in patients with other conditions, including sepsis, renal failure, acidosis, acute neurological disease, and persistent tachyarrhythmia.[employer] ID Page Arzola TLIPID PANEL 2020-11-30 06:40:00 Test Item Value Reference Range Interpretation Comments TRIGLYCERIDES (BEAKER) (test code = 52 mg/dL 540) CHOLESTEROL (BEAKER) (test code = 60 mg/dL 631) HDL CHOLESTEROL (BEAKER) (test code 16 mg/dL = 976) LDL CHOLESTEROL CALCULATED (BEAKER) 34 mg/dL (test code = 633) Triglyceride Reference Range: Low Risk <150 Borderline 150-199 High Risk 200- 499 Very High Risk >=500Cholesterol Reference Range: Low Risk <200 Borderline 200-239 High Risk >240HDL Cholesterol Reference Range: Low Risk >=60 High Risk <40LDL Cholesterol Reference Range: Optimal <100 Near Optimal 100-129 Borderline 130-159 High 160-189 Very High >=190 [employer] JOELLE Arzola TCOMPREHENSIVE METABOLIC [id number] 06:39:00 Test Item Value Reference Range Interpretation Comments TOTAL PROTEIN 6.2 gm/dL 6.0-8.5 (BEAKER) (test code = 770) ALBUMIN (BEAKER) 3.0 g/dL 3.5-5.0 L (test code = 1145) ALKALINE PHOSPHATASE 86 U/L 30-115 (BEAKER) (test code = 346) BILIRUBIN TOTAL 1.4 mg/dL 0.1-1.2 H (BEAKER) (test code = 377) SODIUM (BEAKER) (test 141 meq/L 135-148 code = 381) POTASSIUM (BEAKER) 3.8 meq/L 3.6-5.5 (test code = 379) CHLORIDE (BEAKER) 102 meq/L 98-106 (test code = 382) CO2 (BEAKER) (test 28 meq/L 20-29 code = 355) BLOOD UREA NITROGEN 9 mg/dL 10-26 L (BEAKER) (test code = 354) CREATININE (BEAKER) 0.58 mg/dL 0.50-1.20 (test code = 358) GLUCOSE RANDOM 107 mg/dL 70-110 (BEAKER) (test code = 652) CALCIUM (BEAKER) 8.4 mg/dL 8.5-10.5 L (test code = 697) AST (SGOT) (BEAKER) 22 U/L 5-40 (test code = 353) ALT (SGPT) (BEAKER) 122 U/L 5-50 H (test code = 347) EGFR (BEAKER) (test 117 ESTIMATE D GFR IS code = 1092) mL/min/1.73 sq NOT ACCURA TE m CREATININE CLEARANCE IN PREDICTING GLOMERULAR FILTRATION RATE . ESTIMATED GFR I S NOT APPLICABLE FOR DIALYSIS PATIEN TS. [employer] ID - Ness TTRCARTER [id number] 18:52:00 Test Item Value Reference Range Interpretation Comments TROPONIN I (BEAKER) (test code = 0.12 ng/mL 0.00-0.03 H 397) Troponin I (TnI) levels must be interpreted in the context of the presenting symptoms and the clinical findings. Elevated TnI levels indicate myocardial damage, but are not specific for ischemic heart disease. Elevated TnI levels are seen in patients with other cardiac conditions (including myocarditis and congestive heart failure), and slight TnI elevations occur in patients with other conditions, including sepsis, renal failure, acidosis, acute neurological disease, and persistent tachyarrhythmia.[employer] ID - SHARONYLEHEPATIC FUNCTION [id number] 18:51:00 Test Item Value Reference Range Interpretation Comments TOTAL PROTEIN (BEAKER) (test code = 6.3 gm/dL 6.0-8.5 770) ALBUMIN (BEAKER) (test code = 1145) 3.0 g/dL 3.5-5.0 L BILIRUBIN TOTAL (BEAKER) (test code 1.1 mg/dL 0.1-1.2 = 377) BILIRUBIN DIRECT (BEAKER) (test 0.7 mg/dL 0.0-0.4 H code = 706) ALKALINE PHOSPHATASE (BEAKER) (test 91 U/L 30-115 code = 346) AST (SGOT) (BEAKER) (test code = 23 U/L 5-40 353) ALT (SGPT) (BEAKER) (test code = 140 U/L 5-50 H 347) [employer] ID - NLYLEHEMOGLOBIN [id number] 18:40:00 Test Item Value Reference Range Interpretation Comments HEMOGLOBIN A1C (BEAKER) (test code = 6.0 % 4.3-6.1 368) [employer] ID - NLYLERAD, CHEST, 1 VIEW, NON [id number] 13:34:00Reason for exam:->SOBIs the patient ?->UnknownShould this be performed at the bedside?->YesAD[facility]IST [facility] DELANOName: RODRIGO SUAREZ : 1985 Sex: FFINALREPORT Chest AP portable erect History provided: Shortness of breath Radiographically normal-appearing heart and lungs. Signed: Sebastián Rosen MDRnorma Verified Date/Time: :34:50 Reading Location: [facility] Reading Room [place] [address] 1.310.12 CBC WITH [id number] 11:03:36 Test Item Value Reference Range Interpretation Comments WBC (test code = See_Comment [Automated 6690-2) message] The sy stem which generated this result transmitted reference range : 4.30 - 11.10 10*3/?L. The reference range was not used to interpret this result as normal/abnormal . RBC (test code = See_Comment [Automated 789-8) message] The sy stem which generated this result transmitted reference range : 3.93 - 5.25 10*6/?L. The reference range was not used to interpret this result as normal/abnormal . HGB (test code = 8.9 g/dL 11.6-15.0 L 718-7) HCT (test code = 31.1 % 35.7-45.2 L 4544-3) MCV (test code = 68.1 fL 80.6-95.5 L 787-2) MCH (test code = 19.5 pg 25.9-32.8 L 785-6) MCHC (test code = 28.6 g/dL 31.6-35.1 L 786-4) RDW-SD (test code = 51.1 fL 39.0-49.9 H 08538-7) RDW-CV (test code = 22.2 % 12.0-15.5 H 788-0) PLT (test code = See_Comment [Automated 777-3) message] The sy stem which generated this result transmitted reference range : 166 - 358 10*3/ ?L. The reference r zeeshan was not used to interpret this result as normal/abnormal . MPV (test code = 10.9 fL 9.5-12.9 00450-6) IPF % (test code = 5.5 % 1.3-7.7 Platelet count 9514900141) measured by fluorescence method. NRBC/100 WBC (test See_Comment [Automat ed code = 7081073486) message] The system which generated this result transmitted reference range : 0.0 - 10.0 /100 WBCs. The refer ence range was not u sed to interpret th is result as normal/abnormal . NRBC x10^3 (test code See_Comment [Auto mated = 0365118495) message] The s ystem which generated this result transmitted reference range : 10*3/?L. The reference range was not used to interpret this result as normal/abnormal . GRAN MAT (NEUT) % 70.9 % (test code = 770-8) IMM GRAN % (test code 0.70 % = 4625960116) LYMPH % (test code = 18.1 % 736-9) MONO % (test code = 7.5 % 5905-5) EOS % (test code = 2.4 % 713-8) BASO % (test code = 0.4 % 706-2) GRAN MAT x10^3(ANC) 5.71 10*3/uL 1.88-7.09 (test code = 8871960562) IMM GRAN x10^3 (test 0.06 10*3/uL 0.00-0.06 code = 6353967135) LYMPH x10^3 (test code 1.46 10*3/uL 1.32-3.29 = 731-0) MONO x10^3 (test code 0.60 10*3/uL 0.33-0.92 = 742-7) EOS x10^3 (test code = 0.19 10*3/uL 0.03-0.39 711-2) BASO x10^3 (test code 0.03 10*3/uL 0.01-0.07 = 704-7) Lab Interpretation Abnormal (test code = 38237-7) [facility]. METABOLIC PANEL ([id number])2020-11-27 10:43:11 Test Item Value Reference Range Interpretation Comments NA (test code = 139 mmol/L 135-145 4744269325) K (test code = 3.6 mmol/L 3.5-5.0 5336605783) CL (test code = 110 mmol/L 98-108 H 7940517633) CO2 TOTAL (test code = 23 mmol/L 23-31 6428742675) AGAP (test code = 2-16 5227852132) BUN (test code = 9 mg/dL 7-23 6985046431) GLUCOSE (test code = 99 mg/dL 70-110 6123618962) CREATININE (test code = 0.47 mg/dL 0.50-1.04 L 2587170568) TOTAL BILI (test code = 0.7 mg/dL 0.1-1.7 6486726993) CALCIUM (test code = 7.9 mg/dL 8.6-10.6 L 8091972010) T PROTEIN (test code = 5.5 g/dL 6.3-8.2 L 8310978718) ALBUMIN (test code = 2.6 g/dL 3.5-5.0 L 2211343716) ALK PHOS (test code = 84 U/L 34-122 0548296594) ALTv (test code = 254 U/L 5-35 H 1742-6) AST(SGOT) (test code = 51 U/L 13-40 H 6742010335) eGFR (test code = mL/min/1.73m2 2766114394) GENTRY (test code = GENTRY) Association of Glomerular Filtration Rate (GFR) and Staging of Kidney Disease* + --+ --+ ------+| GFR (mL/min/1.73 m2) ?| With Kidney Damage ?| ?Without Kidney Damage+ --------+ --------+ +| ?>90 ?| ?Stage one ?| ? Normal ?+ ---+ ---+ -------+| ?60-89 ?| ?Stage two ?| ? Decreased GFR ? + --+ --+ ------+| ?30-59 ?| ?Stage three ?| ? Stage three ? + --+ --+ ------+| ?15-29 ?| ?Stage four ? | ? Stage four ?+ ---+ ---+ -------+| ?<15 (or dialysis) ? ?| ?Stage five ? | ? Stage five ?+ ---+ ---+ -------+ *Each stage assumes the associated GFR level has been in effect for at least three months. ?Stages 1 to 5, with or without kidney disease, indicate chronic kidney disease. Notes: Determination of stages one and two (with eGFR >59mL/min/1.73 m2) requires estimation of kidney damage for at least three months as defined by structural or functional abnormalities of the kidney, manifested by either:Pathological abnormalities or Markers of kidney damage (including abnormalities in the composition of the blood or urine or abnormalities in imaging tests). Lab Interpretation Abnormal (test code = 31469-1) [facility] acute hospital AB TO EARLY(D)AG,[id number] 17:33:08 Test Item Value Reference Range Interpretation Comments EBV EARLY G (test <5.0 See_Comment INTERPRETI VE INFORMATION: code = 33980-0) Vidhi-Sanchez Virus Antibody to ?Early D Antige n (EA-D), IgG ?8.9 U/mL o r less........Not Detected ?9.0-10.9 U/mL........... Indeterminat e - Repeat test ing in ?10-14 days may be hel pful. ?11.0 U/mL or greater....Dete ctedPerforme d By: FEDERICA Jovel [address] [place] [id number] ory Director: Rubia Garcia MD [Automated m essage] The system which ge nerated this result transmit zaria reference range : 0.0 - 10.9 U/mL. The refer ence range was not used to interpret this result as normal/abnormal . [facility] (DIMER)2020-11-26 05:09:39 Test Item Value Reference Range Interpretation Comments INHIBA DIMER (test 1 pg/mL INTERPRET DONIS INFORMATION: code = 26086-7) Inhibin-A (D yulisa) Normal Cycling Females :Early Follicular Phas e (-14 to -10):.. 1.8-17. 3 pg/mLMid Follicular Phas e (-9 to -4):...... 3.5- 31.7 pg/mLLate Folli cular Phase (-3 to -1):.... . 9.8-90.3 pg/mLMid Cycle (Day 0):............ ........ 16.9-91.8 pg/mL Early Luteal (1 to 3):............ .... 16.1-97.5 pg/mL Mid Luteal (4 to 11):........... ...... 3.9-87.7 pg/mLL ate Luteal (12 to 14):.... ........... 2.7-47.1 pg/mL IVF-Peak Levels:........ ........... ... 354.2-1690. 0 pg/mLPCOS-Ovula tory:...... ............... .. 5.7-16.0 pg/mLPostmenopa usal:...... ............... .. less than 6.9 pg/mLN ormal Males:......... ........... ..... less than 2.1 pg/mL This assay is p erformed using the [employer] DXI assa y. ?Values may be elevated during normal pregnanc y. Preeclampsia, D own syndrome, and s ome cancers may increase In hibin-A values.Performe d By: [employer] [place] [id number] Director: Rubia Garcia MD [facility] CenterEB QUANTITATIVE [id number] 18:57:52 Test Item Value Reference Range Interpretation Comments Vidhi-Sanchez Virus, Plasma Quant. Source (test code = 96467-8) Vidhi-Sanchez Virus, Not Quantified cpy/mL Quant. Copy/mL (test code = 62649-7) Vidhi-Sanchez Virus, Not Quantified log Not Qu antified - Quant. Log (test code EBV DN A was = 61088-4) detected, but a t a level below 2 .6 log copies/mL (390 copies/mL) . Virus detected at a level below 2 .6 log copies/mL cannot be accurately quantified by this assay.INTERPRET IV E INFORMATION: Vidhi Sanchez Virus by Richie <truncated> Vidhi-Sanchez Virus, Detected Not Detected A Performe d by [employer] Quant. Interp (test [facility] code = 5005-4) [place] [address] zyw .a [employer], Jose F Garcia MD, Lab. Director Lab Interpretation Abnormal (test code = 78226-4) [facility] CenterCLOSTRIDIUM DIFFICILE [id number] 16:21:41 Test Item Value Reference Range Interpretation Comments Clostridioides (Clostridium) Negative Negative difficile (test code = 67417-1) Lab Interpretation (test code = Normal 91744-6) [facility] CenterCB WITH [id number] 09:11:27 Test Item Value Reference Range Interpretation Comments WBC (test code = See_Comment [Automated 6690-2) message] The sy stem which generated this result transmitted reference range : 4.30 - 11.10 10*3/?L. The reference range was not used to interpret this result as normal/abnormal . RBC (test code = See_Comment [Automated 789-8) message] The sy stem which generated this result transmitted reference range : 3.93 - 5.25 10*6/?L. The reference range was not used to interpret this result as normal/abnormal . HGB (test code = 8.8 g/dL 11.6-15.0 L 718-7) HCT (test code = 31.5 % 35.7-45.2 L 4544-3) MCV (test code = 68.2 fL 80.6-95.5 L 787-2) MCH (test code = 19.0 pg 25.9-32.8 L 785-6) MCHC (test code = 27.9 g/dL 31.6-35.1 L 786-4) RDW-SD (test code = 49.2 fL 39.0-49.9 88746-5) RDW-CV (test code = 21.4 % 12.0-15.5 H 788-0) PLT (test code = See_Comment [Automated 777-3) message] The sy stem which generated this result transmitted reference range : 166 - 358 10*3/ ?L. The reference r zeeshan was not used to interpret this result as normal/abnormal . MPV (test code = 10.4 fL 9.5-12.9 94334-9) IPF % (test code = 6.5 % 1.3-7.7 Platelet count 9479842909) measured by fluorescence method. NRBC/100 WBC (test See_Comment [Automat ed code = 4293329810) message] The system which generated this result transmitted reference range : 0.0 - 10.0 /100 WBCs. The refer ence range was not u sed to interpret th is result as normal/abnormal . NRBC x10^3 (test code See_Comment [Auto mated = 1033085011) message] The s ystem which generated this result transmitted reference range : 10*3/?L. The reference range was not used to interpret this result as normal/abnormal . GRAN MAT (NEUT) % 73.7 % (test code = 770-8) IMM GRAN % (test code 1.10 % = 6605272837) LYMPH % (test code = 14.6 % 736-9) MONO % (test code = 7.9 % 5905-5) EOS % (test code = 2.3 % 713-8) BASO % (test code = 0.4 % 706-2) GRAN MAT x10^3(ANC) 6.75 10*3/uL 1.88-7.09 (test code = 7459074004) IMM GRAN x10^3 (test 0.10 10*3/uL 0.00-0.06 H code = 0973184037) LYMPH x10^3 (test code 1.34 10*3/uL 1.32-3.29 = 731-0) MONO x10^3 (test code 0.72 10*3/uL 0.33-0.92 = 742-7) EOS x10^3 (test code = 0.21 10*3/uL 0.03-0.39 711-2) BASO x10^3 (test code 0.04 10*3/uL 0.01-0.07 = 704-7) BANDS (test code = Increased A 4650350900) Lab Interpretation Abnormal (test code = 02967-6) [facility] ([id number])2020-11-25 09:01:40 Test Item Value Reference Range Interpretation Comments NA (test code = 135 mmol/L 135-145 7918886858) K (test code = 3.5 mmol/L 3.5-5.0 8958260898) CL (test code = 106 mmol/L 98-108 0613350547) CO2 TOTAL (test code = 22 mmol/L 23-31 L 0108163931) AGAP (test code = 2-16 7107346981) BUN (test code = 12 mg/dL 7-23 0763863667) GLUCOSE (test code = 105 mg/dL 70-110 0493624225) CREATININE (test code = 0.49 mg/dL 0.50-1.04 L 3870317594) TOTAL BILI (test code = 0.9 mg/dL 0.1-1.6 8985815372) CALCIUM (test code = 7.6 mg/dL 8.6-10.6 L 8015483588) T PROTEIN (test code = 5.6 g/dL 6.3-8.2 L 3174068796) ALBUMIN (test code = 2.7 g/dL 3.5-5.0 L 7560802957) ALK PHOS (test code = 106 U/L 34-122 5396349948) ALTv (test code = 432 U/L 5-35 H 1742-6) AST(SGOT) (test code = 125 U/L 13-40 H 5531717064) eGFR (test code = mL/min/1.73m2 2290602080) GENTRY (test code = GENTRY) Association of Glomerular Filtration Rate (GFR) and Staging of Kidney Disease* + --+ --+ ------+| GFR (mL/min/1.73 m2) ?| With Kidney Damage ?| ?Without Kidney Damage+ --------+ --------+ +| ?>90 ?| ?Stage one ?| ? Normal ?+ ---+ ---+ -------+| ?60-89 ?| ?Stage two ?| ? Decreased GFR ? + --+ --+ ------+| ?30-59 ?| ?Stage three ?| ? Stage three ? + --+ --+ ------+| ?15-29 ?| ?Stage four ? | ? Stage four ?+ ---+ ---+ -------+| ?<15 (or dialysis) ? ?| ?Stage five ? | ? Stage five ?+ ---+ ---+ -------+ *Each stage assumes the associated GFR level has been in effect for at least three months. ?Stages 1 to 5, with or without kidney disease, indicate chronic kidney disease. Notes: Determination of stages one and two (with eGFR >59mL/min/1.73 m2) requires estimation of kidney damage for at least three months as defined by structural or functional abnormalities of the kidney, manifested by either:Pathological abnormalities or Markers of kidney damage (including abnormalities in the composition of the blood or urine or abnormalities in imaging tests). Lab Interpretation Abnormal (test code = 23438-0) [facility] CenterVancomycin Trough Level - Draw immediately prior to the 4TH dose, but, no more than 60 minutes before the 4TH dose. 2020-11-24 19:19:13 Test Item Value Reference Range Interpretation Comments VANCO TROUGH (test code 6.8 ug/mL 10.0-20.0 L = 0678063639) GENTRY (test code = GENTRY) Toxic Range: ?>20 ug/mL 15-20 ug/mL is recommended for severe infection or when Vancomycin XOCHILT is greater than or equal to 2. Lab Interpretation (test Abnormal code = 25931-1) [facility] CenterEBV NUCLEAR ANTIGEN [id number] 18:10:13 Test Item Value Reference Range Interpretation Comments EBV Nuclear Antigen IgG Positive Negative A (test code = 1053122640) GENTRY (test code = GENTRY) Positive - IgG to EBV nuclear antigen detected.Negative - No EBV nuclear antigen IgG detected.Equivocal - A second sample should be sent. Lab Interpretation (test Abnormal code = 53519-9) [facility] CenterCA-[id number] 17:53:11 Test Item Value Reference Range Interpretation Comments CA-125 (test code = 1136306465) 236.6 U/mL 0.0-35.0 H Lab Interpretation (test code = Abnormal 29846-9) [facility] CenterCANCER ANTIGEN-GI (CA 19-9)2020-11-24 17:53:11 Test Item Value Reference Range Interpretation Comments CA 19-9 (test code = 51.5 U/mL 0.0-35.0 H 9672820105) GENTRY (test code = GENTRY) Biotin has been reported to cause a negative bias, interpret results relative to patient's use of biotin. Lab Interpretation (test Abnormal code = 76135-7) [facility] CenterCARCINOEMBRYONIC [id number] 17:17:31 Test Item Value Reference Range Interpretation Comments CEA (test code = 3.8 ng/mL 0.0-10.0 4630022702) GENTRY (test code = GENTRY) CEA Ranges: Non-Smokers ?0-5.0 ng/mLSmokers ? ? ?0-10.0 ng/mL Lab Interpretation (test Normal code = 11913-5) [facility] CenterHSV 1 AND 2 GLYCOPROTEIN G [id number] 17:00:16 Test Item Value Reference Range Interpretation Comments HSV I IgG (test code Negative Negative = 2216884853) HSV II IgG (test code Negative Negative = 4578236163) GENTRY (test code = GENTRY) Positive - IgG antibody to HSV 1 and/or HSV 2 detected.Negative - No HSV 1 and/or HSV 2 antibody detected.Equivocal - A second sample should be sent. [facility] CenterVZV ANTIBODY [id number] 16:57:38 Test Item Value Reference Range Interpretation Comments VZV IgG antibody Positive Negative (test code = 74395-0) GENTRY (test code = GENTRY) Positive - Indicates the patient was exposed to VZV through infection or vaccination.Negative - Indicates the patient could be susceptible to VZV infection.Equivocal - A second specimen should be sent for testing. [facility] CenterGALV ONLY - SYPHILIS [id number] 16:56:57 Test Item Value Reference Range Interpretation Comments Syphilis IgG/IgM (test Non-reactive Non-reactive code = 95497-5) GENTRY (test code = GENTRY) Non-reactive - No serologic evidence of T. pallidum infection. Cannot exclude incubating or early syphilis. Submit a second specimen in 2-4 weeks if syphilis is clinically suspected. Equivocal - Further testing to follow. Reactive - Further testing to follow. Lab Interpretation (test Normal code = 28651-6) [facility] CenterCYTOMEGALOVIRUS ANTIBODY [id number] 16:56:16 Test Item Value Reference Range Interpretation Comments CMV IGM (test code = Negative Negative 0553172264) GENTRY (test code = GENTRY) Positive - Indicative of acute primary or recent infection with CMV.Negative - No anti-CMV IgM detected.Equivocal - A second sample should be sent. Lab Interpretation (test Normal code = 83894-9) [facility] CenterCYTOMEGALOVIRUS ANTIBODY [id number] 16:56:00 Test Item Value Reference Range Interpretation Comments CMV IGG (test code = Positive Negative 7613972786) GENTRY (test code = Positive - Indicates GENTRY) current or past CMV infection.Negative - Indicates no serologic evidence of CMV infection. Cannot exclude acute CMV infection.Equivocal - A second specimen should be sent for repeat testing. [facility] VIRAL CAPSID IGM [id number] 16:55:18 Test Item Value Reference Range Interpretation Comments EBV Viral Capsid IgM Negative Negative Antibody (test code = 4465299794) GENTRY (test code = GENTRY) Positive - Indicates a current or reactivated infection with EBV.Negative - Indicates no detectable IgM to EBV VCA. Interpret in conjunction with EBV IgG results.Equivocal - A second sample should be sent. Lab Interpretation (test Normal code = 60653-8) [facility] acute hospital VIRAL CAPSID IGG [id number] 16:52:58 Test Item Value Reference Range Interpretation Comments Vidhi Sanchez Virus Positive Negative Viral Capsid IgG (test code = 0701312939) GENTRY (test code = GENTRY) Positive - Indicates current or past infection with Vidhi Sanchez virus.Negative - Indicates no serologic evidence of EBV infection. Cannot exclude acute EBV infection.Equivocal - Indicates a second sample should be sent. [facility] CenterALPHA [id number] 13:54:25 Test Item Value Reference Range Interpretation Comments AFP (test code = 2.0 ng/mL See_Comment [Automated 1726460165) message] The system which generated this result transmitted reference range : <=7.5. The reference range was not used to interpret this result as normal/abnormal . GENTRY (test code = GNETRY) Biotin has been reported to cause a negative bias, interpret results relative to patient's use of biotin. Lab Interpretation Normal (test code = 83887-7) [facility] CenterTOTAL BETA HCG [id number] 13:22:58 Test Item Value Reference Range Interpretation Comments BETA HCG (test <2.39 See_Comment [Automated m essage] code = The system iSSimple 2967880856) generated this result transmit zaria reference range : Non- fe male and male patien ts: <5 mIU/mL. The reference range was not used to interpret this result as normal/abnormal . GENTRY (test code Gestational Age ? ? = GENTRY) ?Range (mIU/mL) 1-10 ?Weeks ?38-58985013-16 Weeks ?78500-75924424-11 Weeks ?0025-50447448-85 Weeks ?5810-036997 Biotin has been reported to cause a negative bias, interpret results relative to patient's use of biotin. [facility] CenterMAGNESIUM2021-04-09 12:51:56 Test Item Value Reference Range Interpretation Comments MAGNESIUM (test code = 4274581951) 1.8 mg/dL 1.7-2.4 Lab Interpretation (test code = Normal 84447-7) [facility] CenterCOMP. METABOLIC PANEL (38624)2020-11-24 12:35:36 Test Item Value Reference Range Interpretation Comments NA (test code = 136 mmol/L 135-145 7599630365) K (test code = 3.9 mmol/L 3.5-5.0 6738172247) CL (test code = 107 mmol/L 98-108 4866590265) CO2 TOTAL (test code = 20 mmol/L 23-31 L 8941203560) AGAP (test code = 2-16 5049866828) BUN (test code = 14 mg/dL 7-23 5624811031) GLUCOSE (test code = 113 mg/dL 70-110 H 1217398538) CREATININE (test code = 0.57 mg/dL 0.50-1.04 9084969124) TOTAL BILI (test code = 1.2 mg/dL 0.1-1.1 H 2540166564) CALCIUM (test code = 7.8 mg/dL 8.6-10.6 L 1924665139) T PROTEIN (test code = 5.7 g/dL 6.3-8.2 L 3125868892) ALBUMIN (test code = 2.7 g/dL 3.5-5.0 L 0393912644) ALK PHOS (test code = 103 U/L 34-122 6977344849) ALTv (test code = 536 U/L 5-35 H 1742-6) AST(SGOT) (test code = 243 U/L 13-40 H 5730153045) eGFR (test code = mL/min/1.73m2 6649374419) GENTRY (test code = GENTRY) Association of Glomerular Filtration Rate (GFR) and Staging of Kidney Disease* + --+ --+ ------+| GFR (mL/min/1.73 m2) ?| With Kidney Damage ?| ?Without Kidney Damage+ --------+ --------+ +| ?>90 ?| ?Stage one ?| ? Normal ?+ ---+ ---+ -------+| ?60-89 ?| ?Stage two ?| ? Decreased GFR ? + --+ --+ ------+| ?30-59 ?| ?Stage three ?| ? Stage three ? + --+ --+ ------+| ?15-29 ?| ?Stage four ? | ? Stage four ?+ ---+ ---+ -------+| ?<15 (or dialysis) ? ?| ?Stage five ? | ? Stage five ?+ ---+ ---+ -------+ *Each stage assumes the associated GFR level has been in effect for at least three months. ?Stages 1 to 5, with or without kidney disease, indicate chronic kidney disease. Notes: Determination of stages one and two (with eGFR >59mL/min/1.73 m2) requires estimation of kidney damage for at least three months as defined by structural or functional abnormalities of the kidney, manifested by either:Pathological abnormalities or Markers of kidney damage (including abnormalities in the composition of the blood or urine or abnormalities in imaging tests). Lab Interpretation Abnormal (test code = 19178-5) [facility] WITH [id number] 12:01:36 Test Item Value Reference Range Interpretation Comments WBC (test code = See_Comment [Automated 6243-2) message] The sy stem which generated this result transmitted reference range : 4.30 - 11.10 10*3/?L. The reference range was not used to interpret this result as normal/abnormal . RBC (test code = See_Comment [Automated 886-8) message] The sy stem which generated this result transmitted reference range : 3.93 - 5.25 10*6/?L. The reference range was not used to interpret this result as normal/abnormal . HGB (test code = 9.0 g/dL 11.6-15.0 L 718-7) HCT (test code = 31.8 % 35.7-45.2 L 4544-3) MCV (test code = 69.4 fL 80.6-95.5 L 787-2) MCH (test code = 19.7 pg 25.9-32.8 L 785-6) MCHC (test code = 28.3 g/dL 31.6-35.1 L 786-4) RDW-SD (test code = 50.6 fL 39.0-49.9 H 17290-9) RDW-CV (test code = 21.5 % 12.0-15.5 H 788-0) PLT (test code = See_Comment [Automated 777-3) message] The sy stem which generated this result transmitted reference range : 166 - 358 10*3/ ?L. The reference r zeeshan was not used to interpret this result as normal/abnormal . MPV (test code = 10.5 fL 9.5-12.9 49282-0) NRBC/100 WBC (test See_Comment [Automat ed code = 9886839941) message] The system which generated this result transmitted reference range : 0.0 - 10.0 /100 WBCs. The refer ence range was not u sed to interpret th is result as normal/abnormal . NRBC x10^3 (test code See_Comment [Auto mated = 0910592269) message] The s ystem which generated this result transmitted reference range : 10*3/?L. The reference range was not used to interpret this result as normal/abnormal . GRAN MAT (NEUT) % 71.8 % (test code = 770-8) IMM GRAN % (test code 1.40 % = 8790488286) LYMPH % (test code = 17.1 % 736-9) MONO % (test code = 6.9 % 5905-5) EOS % (test code = 2.4 % 713-8) BASO % (test code = 0.4 % 706-2) GRAN MAT x10^3(ANC) 5.73 10*3/uL 1.88-7.09 (test code = 7397573020) IMM GRAN x10^3 (test 0.11 10*3/uL 0.00-0.06 H code = 2564538339) LYMPH x10^3 (test code 1.36 10*3/uL 1.32-3.29 = 731-0) MONO x10^3 (test code 0.55 10*3/uL 0.33-0.92 = 742-7) EOS x10^3 (test code = 0.19 10*3/uL 0.03-0.39 711-2) BASO x10^3 (test code 0.03 10*3/uL 0.01-0.07 = 704-7) Lab Interpretation Abnormal (test code = 16198-1) [facility] [id number] 22:37:39 Test Item Value Reference Range Interpretation Comments LACTIC ACID (test code = 2.69 mmol/L 0.50-2.20 H 9060802866) Lab Interpretation (test code = Abnormal 66610-0) [facility] CenterANTI-NUCLEAR ANTIBODY [id number] 21:16:08 Test Item Value Reference Range Interpretation Comments BRIDGER (test code = Negative Negative 6199278998) GENTRY (test code = GENTRY) Negative - No Anti-Nuclear Antibodies detected by IFA.Positive - BRIDGER IFA screen performed with a 1:80 dilution in adults and a 1:40 dilution in pediatrics. Any BRIDGER "Positive" will have titer performed and reported separately.Negative - No Anti-Nuclear Antibodies detected by IFA.Positive - BRIDGER IFA screen performed with a 1:80 dilution in adults and a 1:40 dilution in pediatrics. Any BRIDGER "Positive" will have titer performed and reported separately. Lab Interpretation (test Normal code = 82479-9) [facility] CenterGC & CHLAMYDIA AMPLIFIED [id number] 18:59:10 Test Item Value Reference Range Interpretation Comments C. trachomatis Nucleic Negative Negative Acid (test code = 02745-0) N. gonorrhoeae Nucleic Negative Negative Acid (test code = 75427-8) GENTRY (test code = GENTRY) Reliable results are dependent on adequate specimen collection. ? A positive result obtained from a patient after therapeutic treatment cannot be interpreted as indicating the presence of viable organisms. ?For patients on whom a false positive result may have adverse psychosocial impact, retesting is advised. Indeterminate: Unable to generate a valid test result on this specimen. ?Please submit a new specimen for repeat testing if clinically indicated. Chlamydia trachomatis/Neisseria gonorrhoeae nucleic acid amplification testing (NAAT) has not been validated for medico-legal specimens (sexual abuse in carlos-pubertal and pre-pubertal children, sexual assault, and legal cases). ?Culture for Chlamydia trachomatis and/or Neisseria gonorrhoeae from clinically appropriate sites is the method of choice in these cases. ? Results from this testing should be interpreted in conjunction with other laboratory and clinical data available to the clinician.For females in general, a urine specimen is a second-line option because it is considered less sensitive than a cervical swab for Chlamydia trachomatis and/or Neisseria gonorrhoeae NAAT. Lab Interpretation Normal (test code = 60967-2) [facility] WITH [id number] 18:47:03 Test Item Value Reference Range Interpretation Comments WBC (test code = See_Comment [Automated 8690-2) message] The sy stem which generated this result transmitted reference range : 4.30 - 11.10 10*3/?L. The reference range was not used to interpret this result as normal/abnormal . RBC (test code = See_Comment [Automated 849-8) message] The sy stem which generated this result transmitted reference range : 3.93 - 5.25 10*6/?L. The reference range was not used to interpret this result as normal/abnormal . HGB (test code = 9.0 g/dL 11.6-15.0 L 718-7) HCT (test code = 32.3 % 35.7-45.2 L 4544-3) MCV (test code = 69.6 fL 80.6-95.5 L 787-2) MCH (test code = 19.4 pg 25.9-32.8 L 785-6) MCHC (test code = 27.9 g/dL 31.6-35.1 L 786-4) RDW-SD (test code = 50.1 fL 39.0-49.9 H 69809-8) RDW-CV (test code = 21.3 % 12.0-15.5 H 788-0) PLT (test code = See_Comment [Automated 777-3) message] The sy stem which generated this result transmitted reference range : 166 - 358 10*3/ ?L. The reference r zeeshan was not used to interpret this result as normal/abnormal . MPV (test code = 10.8 fL 9.5-12.9 44968-7) NRBC/100 WBC (test See_Comment [Automat ed code = 7455792404) message] The system which generated this result transmitted reference range : 0.0 - 10.0 /100 WBCs. The refer ence range was not u sed to interpret th is result as normal/abnormal . NRBC x10^3 (test code See_Comment [Auto mated = 1469940198) message] The s ystem which generated this result transmitted reference range : 10*3/?L. The reference range was not used to interpret this result as normal/abnormal . GRAN MAT (NEUT) % 80.1 % (test code = 770-8) IMM GRAN % (test code 2.00 % = 0594998993) LYMPH % (test code = 10.8 % 736-9) MONO % (test code = 6.2 % 5905-5) EOS % (test code = 0.5 % 713-8) BASO % (test code = 0.4 % 706-2) GRAN MAT x10^3(ANC) 8.86 10*3/uL 1.88-7.09 H (test code = 0810820246) IMM GRAN x10^3 (test 0.22 10*3/uL 0.00-0.06 H code = 6543323800) LYMPH x10^3 (test code 1.20 10*3/uL 1.32-3.29 L = 731-0) MONO x10^3 (test code 0.69 10*3/uL 0.33-0.92 = 742-7) EOS x10^3 (test code = 0.05 10*3/uL 0.03-0.39 711-2) BASO x10^3 (test code 0.04 10*3/uL 0.01-0.07 = 704-7) PAMELA CELLS (test code 2+ See_Comment A [Auto mated = 7790-9) message] The sy stem which generated this result transmitted reference range : (none). The reference range was not used to interpret this result as normal/abnormal . POLYCHROMASIA (test 2+ See_Comment [Automa zaria code = 09907-3) message] The system which generated this result transmitted reference range : 2+. The referen ce range was not u sed to interpret th is result as normal/abnormal . SCHISTOCYTES (test 1+ A code = 800-3) BANDS (test code = Increased A 5743950698) Lab Interpretation Abnormal (test code = 81744-6) [facility] CenterCOM. METABOLIC PANEL (07981)2020-11-23 18:18:32 Test Item Value Reference Range Interpretation Comments NA (test code = 137 mmol/L 135-145 8182403433) K (test code = 4.3 mmol/L 3.5-5.0 0967546768) CL (test code = 107 mmol/L 98-108 9537133989) CO2 TOTAL (test code = 22 mmol/L 23-31 L 4986529326) AGAP (test code = 2-16 3927356836) BUN (test code = 12 mg/dL 7-23 8208304341) GLUCOSE (test code = 102 mg/dL 70-110 5775467028) CREATININE (test code = 0.62 mg/dL 0.50-1.04 0265945389) TOTAL BILI (test code = 1.2 mg/dL 0.1-1.1 H 0517264674) CALCIUM (test code = 8.0 mg/dL 8.6-10.6 L 4272836951) T PROTEIN (test code = 5.9 g/dL 6.3-8.2 L 9140261881) ALBUMIN (test code = 2.9 g/dL 3.5-5.0 L 9239211107) ALK PHOS (test code = 118 U/L 34-122 3686282999) ALTv (test code = 704 U/L 5-35 H 1742-6) AST(SGOT) (test code = 558 U/L 13-40 H 3888577804) eGFR (test code = mL/min/1.73m2 4222261228) GENTRY (test code = GENTRY) Association of Glomerular Filtration Rate (GFR) and Staging of Kidney Disease* + --+ --+ ------+| GFR (mL/min/1.73 m2) ?| With Kidney Damage ?| ?Without Kidney Damage+ --------+ --------+ +| ?>90 ?| ?Stage one ?| ? Normal ?+ ---+ ---+ -------+| ?60-89 ?| ?Stage two ?| ? Decreased GFR ? + --+ --+ ------+| ?30-59 ?| ?Stage three ?| ? Stage three ? + --+ --+ ------+| ?15-29 ?| ?Stage four ? | ? Stage four ?+ ---+ ---+ -------+| ?<15 (or dialysis) ? ?| ?Stage five ? | ? Stage five ?+ ---+ ---+ -------+ *Each stage assumes the associated GFR level has been in effect for at least three months. ?Stages 1 to 5, with or without kidney disease, indicate chronic kidney disease. Notes: Determination of stages one and two (with eGFR >59mL/min/1.73 m2) requires estimation of kidney damage for at least three months as defined by structural or functional abnormalities of the kidney, manifested by either:Pathological abnormalities or Markers of kidney damage (including abnormalities in the composition of the blood or urine or abnormalities in imaging tests). Lab Interpretation Abnormal (test code = 16856-4) [facility] CenterCT [facility] W [id number] 17:02:43 1. ?Grossly unchanged 5.5 x 6.0 x 6.1 cm heterogeneous soft tissue in theright lower quadrant/rightadnexa, which is likely the enlarged andinflamed ovary from PID with phlegmonous changes. No drainable fluidcollection is visualized. Interval improvement in surrounding inflammation. 2. ?Considerable h epatomegaly with heterogeneous hepatic parenchyma,suggestive of chronic liver disease. An ill-defined hypoattenuating area inthe pancreatic tail, nonspecific, may be related to prior inflammation. A1.2cm linear metallic material is seen anterior to the uterus. Priorcholecystectomy. 3. ?Interval movement of abdominal wall edema which may be related to fluidoverload. Preliminary Report Dictated by Resident: Adelia Nails ?MD Antonio., have reviewed this study and agree with theabove report.EXAM: CT ABDOMEN/PELVIS WITH CONTRAST HISTORY: ? 35 years-old Female presenting with Adnexal mass, indeterminate,pre-menopausal Please perform with ORAL and IV contrast. Additional historyper chart: History of tubo-ovarian abscess. COMPARISON: CT AP 11/16/2020, pelvic ultrasound 11/22/2020.. TECHNIQUE AND FINDINGS: Contiguous axial imaging from the level of the lungbases through the proximal thighswas performed after the administration of120 cc of intravenous Omnipaque contrast and 25 oral Omnipaque contrast.Coronal and sagittal reconstructions were obtained. ?Auto mA and/oriterative reconstruction were used to reduce radiation dose. FINDINGS: LOWER THORAX: The lungs bases are clear. No cardiomegaly. Pulmonary arteryis prominent, 3.4 cm in diameter. LIVER: Liver is enlarged, 24 cm in craniocaudal dimension in mid clavicularline. Marked heterogeneous enhancement of the hepatic parenchyma. No focalhepatic lesions. Normal contour. GALLBLADDER AND BILIARY TREE: No biliary ductal dilation. Priorcholecystectomy. SPLEEN: No splenomegaly. Scattered subcentimeter calcified granuloma. PANCREAS: An ill-defined hypoattenuating area in the pancreatic tail isagain visualized, measuring 5.3 x 2.5 cm (2:42). No ductal dilation ormasses. ADRENAL GLANDS: No adrenal nodules. KIDNEYS: No hydronephrosis, stones, or masses. PERITONEUM AND RETROPERITONEUM: A 5.5 x 6.0 x 6.1 cm (AP x TV c CC)heterogeneous soft tissue with surrounding fat stranding is visualized inthe right lower abdominal quadrant/right adnexa, grossly unchanged fromprior exam. No drainable fluid collection is seen. Right ovary is not wellvisualized. LYMPH NODES: No lymphadenopathy. GI TRACT: No bowel dilation. Thickening of the cecum is likely reactive toadjacent inflammatory changes. Appendix is not visualized. PELVIS/BLADDER: A 1.2 cm linear metallic material is seen ?anterior to theuterus. Bladder, uterus and left ovary are unremarkable. Right ovary is notwell visualized within the context of described soft tissue focus andsignificantinflammatory changes in the right adnexa. VESSELS: Unremarkable. BONES AND SOFT TISSUES: No suspicious lytic or sclerotic bony lesions. Mildspondylotic changes of the thoracolumbar spine. Soft tissue ed george is seenin the subcutaneous abdominal wall. [facility], Radiant Results Inft User - 11/23/2020 12:03 PMCDTEXAM: CT ABDOMEN/PELVIS WITH CONTRASTHISTORY: 35 years-old Female presenting with Adnexal mass, indeterminate,pre-menopausal Please perform with ORAL and IV contrast. Additional historyper chart: History of tubo-ovarian abscess.COMPARISON: CT AP 11/16/2020, pelvic ultrasound 11/22/2020..TECHNIQUE AND FI NDINGS: Contiguous axial imaging from the level of the lungbases through the proximal thighs was performed after the administration of120 cc of intravenous Omnipaque contrast and 25 oral Omnipaque contrast.Coronal and sagittal reconstructions were obtained. Auto mA and/oriterative reconstruction were used to reduce radiation dose.FINDINGS:LOWER THORAX: The lungs bases are clear. No cardiomegaly. Pulmonary arteryis prominent, 3.4 cm in diameter.LIVER: Liver is enlarged, 24 cm in craniocaudal dimension in mid clavicularline. Marked heterogeneous enhancement of the hepatic parenchyma. No focalhepatic lesions. Normal contour.GALLBLADDER AND BILIARY TREE: No biliary ductal dilation. Priorcholecystectomy.SPLEEN: No splenomegaly. Scattered subcentimeter calcified granuloma.PANCREAS: An ill-defined hypoattenuating area in the pancreatic tail isagain visualized, measuring 5.3 x 2.5 cm (2:42). No ductal dilation ormasses.ADRENAL GLANDS: No adrenal nodules.KIDNEYS: No hydronephrosis, stones, or masses.PERITONEUM AND RETROPERITONEUM: A 5.5 x 6.0 x 6.1 cm (AP x TV c CC)heterogeneous soft tissue with surrounding fat stranding is visualized inthe right lower abdominal quadrant/right adnexa, grossly unchanged fromprior exam. No drainable fluid collection is seen. Right ovary is not wellvisualized.LYMPH NODES: No lymphadenopathy.GI TRACT: No bowel dilation. Thickening of the cecum is likely reactive toadjacent inflammatory changes. Appendix is not visualized.PELVIS/BLADDER: A 1.2 cm linear metallic material is seen anterior to theuterus. Bladder, uterus and left ovary are unremarkable. Right ovary is notwe ll visualized within the context of described soft tissue focus andsignificant inflammatory changes in the right adnexa.VESSELS: Unremarkable.BONES AND SOFT TISSUES: No suspicious lytic or sclerotic bony lesions. Mildspondylotic changes of the thoracolumbar spine. Soft tissue edema is seenin the subcutaneous abdominal wall.IMPRESSION1. Grossly unchanged 5.5 x 6.0 x 6.1 cm heterogeneous soft tissue intheright lower quadrant/right adnexa, which is likely the enlarged andinflamed ovary from PID with phlegmonous changes. No drainable fluidcollection is visualized. Interval improvement in surrounding in flammation.2. Considerable hepatomegaly with heterogeneous hepatic parenchyma,suggestive of chronic liver disease. An ill-defined hypoattenuating area inthe pancreatic tail, nonspecific, may be relatedto prior inflammation. A1.2 cm linear metallic material is seen anterior to the uterus. Priorcholecys tectomy.3. Interval movement of abdominal wall edema which may be related to fluidoverload.Preliminary Report Dictated by Resident: Adelia Arroyo MD., have reviewed this study and agree with theabove report. [facility] CenterMRSA / MSSA Screen by [id number] 16:29:47 Test Item Value Reference Range Interpretation Comments MSSA Screen by Kris SORENSEN (test code Negative Negative = 15099-6) MRSA/MSSA Positive? (test code = No No [id number]) Lab Interpretation (test code = Normal 44680-5) [facility] CenterUS ABDOMEN [id number] 15:02:39 Hepatomegaly with coarse hepatic echotexture, consistent with chronic liverdisease. Preliminary Report Dictated by Resident: Victor Manuel Best MD., have reviewed this study and agreewith the abovereport.EXAM: US ABDOMEN LIMITED HISTORY: 35 years-old Female with Acutely elevated liver enzymes . TECHNIQUE: Limited abdominal ultrasound was performed focused on the liver,biliary system, pancreas and spleen. Main portal vein was evaluated withcolor and spectral Doppler imaging. Tobacco Stemmer images were obtained forthe record. COMPARISON: CT abdomen pelvis with contrast 11/23/2020. FINDINGS: LIVER: Length: 19.7 cm.Parenchyma: Slightly increased echogenicity with coarse echotexture.. Nofocal lesion is detected.Portal vein: Hepatopetal flow present in the main portal vein.MPV diameter: 1.0 cm.MPV velocity: 23.9 cm/s. GALLBLADDER:Prior cholecystectomy. BILE DUCTS:The intrahepatic and extra hepatic common bile ducts are slightlyprominent, likely secondary to the reservoir phenomenon.Common Duct diameter: 7 mm. PANCREAS: Limited visualization due to shadowing from bowel gas. SPLEEN: The spleen is normal in size. The spleen measures 10.8 cm. No focal lesionsin the spleen. AORTA:Abdominal aorta is normal in caliber where visualized. Diameter of theproximal abdominal aorta is 1.9 cm. IVC:IVC is normal in appearance where visualized. OTHER: Imaged portions of the right kidney are unremarkable. [facility], Radiant Results Inft User - 11/23/2020 10:03 AM CDTEXAM: US ABDOMEN LIMITEDHISTORY: 35years-old Female with Acutely elevated liver enzymes .TECHNIQUE: Limited abdominal ultrasound was performed focused on the liver,biliary system, pancreas and spleen. Main portal vein was evaluated withcolor and spectral Doppler imaging. Tobacco Stemmer images were obtained forthe record.COMPARISON: CT abdomen pelvis with contrast 11/23/2020.FINDINGS: LIVER: Length: 19.7 cm.Parenchyma: Slightly increased echogenicity with coarse echotexture.. Nofocal lesion is detected.Portal vein: Hepatopetal flow present in the main portal vein.MPV diameter: 1.0 cm.MPV velocity: 23.9 cm/s.GALLBLADDER:Prior cholecystectomy. BILE DUCTS:The intrahepatic and extra hepatic common bile ducts are slightlyprominent, likely s econdary to the reservoir phenomenon.Common Duct diameter: 7 mm.PANCREAS: Limited visualization due to shadowing from bowel gas.SPLEEN: The spleen is normal in size. The spleen measures 10.8 cm. No focal lesionsin the spleen.AORTA:Abdominal aorta is normal in caliber where visualized. Diameter of theproximal abdominal aorta is 1.9 cm.IVC:IVC is normal in appearance where visualized. OTHER: Imaged portions of the right kidney are unremarkable.IMPRESSIONHepatomegaly with coarse hepatic echotexture, consistent with chronic liverdisease.Preliminary Report Dictated by Resident: Toni Jacinto, Victor Manuel Kevin MD., have reviewed this study and agree with the abovereport.[facility] CenterXR CHEST 1 [id number] 13:06:32 EXAM: XR CHEST 1 VW HISTORY: fever and SOB COMPARISON: None. FINDINGS: The heart is mildly enlarged.The lungs are satisfactorily expanded andclear. Pneumonia is not detected. ? [facility], Radiant Results Inft User - 11/23/2020 8:07 AM CDTEXAM: XR CHEST 1 VWHISTORY: fever and SOB COMPARISON: None.FINDINGS:The heart is mildly enlarged. The lungs are satisfactorily expanded andclear. Pneumonia is not detected.[facility] CenterLactic Acid Whole [id number] 09:39:34 Test Item Value Reference Range Interpretation Comments LACTIC ACID (test code = 2.38 mmol/L 0.50-2.20 H 2803962198) Lab Interpretation (test code = Abnormal 03650-8) [facility] CenterACETAMINOPHEN2021-04-08 07:04:02 Test Item Value Reference Range Interpretation Comments ACETAMINOP (test code = <10.0 10.0-30.0 L 0936895003) GENTRY (test code = GENTRY) Toxic: Greater than 200 ug/mL @ 4 hour post ingestion or greater than 50 ug/mL @ 12 hour post ingestion Lab Interpretation (test Abnormal code = 51823-8) [facility] CenterLACTATE [id number] 06:46:26 Test Item Value Reference Range Interpretation Comments LDH (test code = 6693943549) 2348 U/L 300-600 H Slight hemolysis Lab Interpretation (test Abnormal code = 49879-0) [facility] CenterETHANOL2021-04-08 06:37:22 Test Item Value Reference Range Interpretation Comments ALCOHOL (test code = <10 mg/dL 7605556763) GENTRY (test code = Toxic Greater than or GENTRY) equal to 80 mg/dL. NOTE: Whole blood values are approximately 10% to 15% lower than serum and plasma. [facility] CenterLactic Acid Whole [id number] 06:02:43 Test Item Value Reference Range Interpretation Comments LACTIC ACID (test code = 3.43 mmol/L 0.50-2.20 H 0143990981) Lab Interpretation (test code = Abnormal 13206-7) [facility] CenterHCV [id number] 05:52:05 Test Item Value Reference Range Interpretation Comments HCV Ab (test code = 26242-8) Negative HCV Semi-Quantitative (test code = 06879-9) [facility] CenterHAV ANTIBODY (IGG AND IGM)2020-11-23 05:40:46 Test Item Value Reference Range Interpretation Comments HAV Total (test code = 8189705477) Negative HAVT Semi-Quantitative (test code = 2929783797) [facility] CenterHEPATITIS B SURFACE [id number] 05:40:46 Test Item Value Reference Range Interpretation Comments HBsAB (test code = Negative 8901002190) HBsAb mIU/mL Semi-Quantitative (test code = 9726659266) GENTRY (test code = Interpretation: GENTRY) ?Hepatitis B Surface Antibody ? Negative - Patient is considered to be not immune to infection with HBV. ? ? Positive - Anti-HBs detected at greater than or equal to 12 mIU/mL. ?Patient is considered to be immune to infection with HBV. ? [facility] B CORE ANTIBODY [id number] 05:40:05 Test Item Value Reference Range Interpretation Comments HBCM Negative Semi-Quantitative (test code = 62081-4) GENTRY (test code = Biotin has been reported GENTRY) to cause a negative bias, interpret results relative to patient's use of biotin. [facility] B SURFACE [id number] 05:34:43 Test Item Value Reference Range Interpretation Comments HBsAg Semi-Quantitative (test code = Negative Negative 5195-3) [facility] CenterHEPATIC FUNCTION PANEL (27168) (ALB,T.PRO,BILI T,BU/BC,ALT,AST,ALK PHOS)2020-11-23 02:37:38 Test Item Value Reference Range Interpretation Comments TOTAL BILI (test code = 1565106432) 1.2 mg/dL 0.1-1.1 H BILI UNCON (test code = 7060640674) 0.5 mg/dL 0.1-1.1 BILI CONJ (test code = 9601083986) 0.0 mg/dL 0.0-0.3 T PROTEIN (test code = 6683883672) 6.6 g/dL 6.3-8.2 ALBUMIN (test code = 7685345284) 3.3 g/dL 3.5-5.0 L ALK PHOS (test code = 7001428092) 138 U/L 34-122 H ALTv (test code = 1742-6) 855 U/L 5-35 H AST(SGOT) (test code = 3792463632) 910 U/L 13-40 H Lab Interpretation (test code = Abnormal 40797-5) [facility] CenterCBC WITH [id number] 02:16:14 Test Item Value Reference Range Interpretation Comments WBC (test code = See_Comment H [Automated 6690-2) message] The sy stem which generated this result transmitted reference range : 4.30 - 11.10 10*3/?L. The reference range was not used to interpret this result as normal/abnormal . RBC (test code = See_Comment [Automated 789-8) message] The sy stem which generated this result transmitted reference range : 3.93 - 5.25 10*6/?L. The reference range was not used to interpret this result as normal/abnormal . HGB (test code = 10.2 g/dL 11.6-15.0 L 718-7) HCT (test code = 37.1 % 35.7-45.2 4544-3) MCV (test code = 70.7 fL 80.6-95.5 L 787-2) MCH (test code = 19.4 pg 25.9-32.8 L 785-6) MCHC (test code = 27.5 g/dL 31.6-35.1 L 786-4) RDW-SD (test code = 50.8 fL 39.0-49.9 H 82388-7) RDW-CV (test code = 21.2 % 12.0-15.5 H 788-0) PLT (test code = See_Comment [Automated 777-3) message] The sy stem which generated this result transmitted reference range : 166 - 358 10*3/ ?L. The reference r zeeshan was not used to interpret this result as normal/abnormal . MPV (test code = 11.3 fL 9.5-12.9 51941-9) IPF % (test code = 6.7 % 1.3-7.7 Platelet count 4237905226) measured by fluorescence method. NRBC/100 WBC (test See_Comment [Automat ed code = 8690738174) message] The system which generated this result transmitted reference range : 0.0 - 10.0 /100 WBCs. The refer ence range was not u sed to interpret th is result as normal/abnormal . NRBC x10^3 (test code See_Comment [Auto mated = 3790534493) message] The s ystem which generated this result transmitted reference range : 10*3/?L. The reference range was not used to interpret this result as normal/abnormal . GRAN MAT (NEUT) % 76.4 % (test code = 770-8) IMM GRAN % (test code 2.80 % = 4516233150) LYMPH % (test code = 10.8 % 736-9) MONO % (test code = 8.9 % 5905-5) EOS % (test code = 0.5 % 713-8) BASO % (test code = 0.6 % 706-2) GRAN MAT x10^3(ANC) 9.96 10*3/uL 1.88-7.09 H (test code = 4676494175) IMM GRAN x10^3 (test 0.36 10*3/uL 0.00-0.06 H code = 9548123014) LYMPH x10^3 (test code 1.41 10*3/uL 1.32-3.29 = 731-0) MONO x10^3 (test code 1.16 10*3/uL 0.33-0.92 H = 742-7) EOS x10^3 (test code = 0.06 10*3/uL 0.03-0.39 711-2) BASO x10^3 (test code 0.08 10*3/uL 0.01-0.07 H = 704-7) PAMELA CELLS (test code 2+ See_Comment A [Auto mated = 7790-9) message] The sy stem which generated this result transmitted reference range : (none). The reference range was not used to interpret this result as normal/abnormal . POLYCHROMASIA (test 2+ See_Comment [Automa zaria code = 35653-9) message] The system which generated this result transmitted reference range : 2+. The referen ce range was not u sed to interpret th is result as normal/abnormal . BANDS (test code = Increased A 1536259357) Lab Interpretation Abnormal (test code = 55107-9) [facility] METABOLIC PANEL (NA, K, CL, CO2, GLUCOSE, BUN, CREATININE, CA)2020-11-23 02:12:26 Test Item Value Reference Range Interpretation Comments NA (test code = 138 mmol/L 135-145 8418148468) K (test code = 4.4 mmol/L 3.5-5.0 9056600165) CL (test code = 106 mmol/L 98-108 3225536072) CO2 TOTAL (test code = 22 mmol/L 23-31 L 7897939067) AGAP (test code = 2-16 1876706962) BUN (test code = 10 mg/dL 7-23 6922156045) GLUCOSE (test code = 83 mg/dL 70-110 5011634815) CREATININE (test code = 0.64 mg/dL 0.50-1.04 9582034637) CALCIUM (test code = 8.1 mg/dL 8.6-10.6 L 1395083240) eGFR (test code = mL/min/1.73m2 2597758124) GENTRY (test code = GENTRY) Association of Glomerular Filtration Rate (GFR) and Staging of Kidney Disease* + --+ --+ ------+| GFR (mL/min/1.73 m2) ?| With Kidney Damage ?| ?Without Kidney Damage+ --------+ --------+ +| ?>90 ?| ?Stage one ?| ? Normal ?+ ---+ ---+ -------+| ?60-89 ?| ?Stage two ?| ? Decreased GFR ? + --+ --+ ------+| ?30-59 ?| ?Stage three ?| ? Stage three ? + --+ --+ ------+| ?15-29 ?| ?Stage four ? | ? Stage four ?+ ---+ ---+ -------+| ?<15 (or dialysis) ? ?| ?Stage five ? | ? Stage five ?+ ---+ ---+ -------+ *Each stage assumes the associated GFR level has been in effect for at least three months. ?Stages 1 to 5, with or without kidney disease, indicate chronic kidney disease. Notes: Determination of stages one and two (with eGFR >59mL/min/1.73 m2) requires estimation of kidney damage for at least three months as defined by structural or functional abnormalities of the kidney, manifested by either:Pathological abnormalities or Markers of kidney damage (including abnormalities in the composition of the blood or urine or abnormalities in imaging tests). Lab Interpretation Abnormal (test code = 08772-4) [facility] Test Item Value Reference Range Interpretation Comments LIPASE (test code = 9037845255) 65 U/L 0-220 Lab Interpretation (test code = Normal 55022-2) [facility] 02:12:26 Test Item Value Reference Range Interpretation Comments BIANCA (test code = 8505600964) 46 U/L 35-110 Lab Interpretation (test code = Normal 11182-3) [facility]MAGN[facility]IUM2021-[facility]-08 02:12:26 Test Item Value Reference Range Interpretation Comments MAGNESIUM (test code = 6054954778) 1.6 mg/dL 1.7-2.4 L Lab Interpretation (test code = Abnormal 10297-7) [facility]US2021-[facility] 02:12:26 Test Item Value Reference Range Interpretation Comments PHOSPHORUS (test code = 5138125912) 2.8 mg/dL 2.5-5.0 Lab Interpretation (test code = Normal 27683-6) [facility] CenterAC [facility]G + LACTIC [id number] 02:03:13 Test Item Value Reference Range Interpretation Comments PH (test code = 2) 7.35-7.45 H PCO2 (test code = See_Comment L [Automate d 4890280629) message] The sy stem which generated this result transmitted reference range : 35 - 45 mmHg. The reference range was not used to interpret this result as normal/abnormal . PO2 (test code = See_Comment H [Automated 4632414346) message] The sy stem which generated this result transmitted reference range : 80 - 100 mmHg. The reference range was not used to interpret this result as normal/abnormal . HCO3 (test code = See_Comment L [Automate d 8713582288) message] The sy stem which generated this result transmitted reference range : 22 - 26 mEq/L. The reference range was not used to interpret this result as normal/abnormal . BE (test code = See_Comment [Automated 8343778775) message] The sy stem which generated this result transmitted reference range : -3.0 - 3.0 mEq/ L. The reference r zeeshan was not used to interpret this result as normal/abnormal . LACTIC ACID (test code 3.48 mmol/L 0.50-2.20 H = 6013243976) Lab Interpretation Abnormal (test code = 82236-2) [facility]IB[facility]INOGEN20[facility] 01:59:45 Test Item Value Reference Range Interpretation Comments Fibrinogen (test code = 2877581675) 500 mg/dL 167-453 H Lab Interpretation (test code = Abnormal 46831-9) [facility] CenterPROTHROMBIN TIME / [id number] 01:59:45 Test Item Value Reference Range Interpretation Comments PROTIME PATIENT (test See_Comment H [Auto mated message] code = 5964-2) The system ich generated this result transmitted ref erence range: 10.1 - 1 2.6 Seconds. The reference range was not used to int erpret this result as normal/abnormal . INR (test code = 6301-6) Nor mal INR <1.1; Warfarin Therap eutic range 2.0 to 3. 0 or 2.5 to 3.5, dep ending upon the indica tions. Lab Interpretation (test Abnormal code = 34850-9) [facility] CenterACTIVATED PARTIAL THRMPLAS [id number] 01:59:45 Test Item Value Reference Range Interpretation Comments APTT Patient (test code See_Comment L [Au tomated message] = 3173-2) The system ic h generated this result transmitted ref erence range: 26 - 36 Seconds. The reference range was not used to int erpret this result as normal/abnormal . Lab Interpretation (test Abnormal code = 29284-8) [facility] CenterUrinalysis2021-[facility] 17:31:08 Test Item Value Reference Range Interpretation Comments APPEARANCE (test code = Clear Clear 0500415757) COLOR (test code = Yellow Yellow 4080293457) PH (test code = 4.8-8.0 0466998414) SP GRAVITY (test code = 1.003-1.030 7918315128) GLU U QUAL (test code = Normal Normal 4168362623) BLOOD (test code = Negative Negative 7236180571) KETONES (test code = Negative Negative 0197054836) PROTEIN (test code = Negative Negative 2887-8) UROBILIN (test code = Normal Normal 0174591733) BILIRUBIN (test code = Negative Negative 5104017787) NITRITE (test code = Negative Negative 1041690806) LEUK MARIE (test code = 25/uL Negative A 0972090281) RBC/HPF (test code = See_Comment [Autom ated message] 9646495701) The system iSSimple generated this result transmitted ref erence range: 0 - 3 HP F. The reference range was not used to int erpret this result as normal/abnormal . WBC/HPF (test code = See_Comment [Autom ated message] 5806624090) The system iSSimple generated this result transmitted ref erence range: 0 - 5 HP F. The reference range was not used to int erpret this result as normal/abnormal . BACTERIA (test code = Negative Negative 5978194608) SQ EPITH (test code = HPF 6264171283) Lab Interpretation (test Abnormal code = 20033-4) [facility] with [id number] 16:29:20 Test Item Value Reference Range Interpretation Comments WBC (test code = See_Comment H [Automated 6690-2) message] The system which generated this result transmitted reference range : 4.30 - 11.10 10*3/?L. The reference range was not used to interpret this result as normal/abnormal . RBC (test code = See_Comment [Automated 789-8) message] The system which generated this result transmitted reference range : 3.93 - 5.25 10*6/?L. The reference range was not used to interpret this result as normal/abnormal . HGB (test code = 9.3 g/dL 11.6-15.0 L 718-7) HCT (test code = 33.0 % 35.7-45.2 L 4544-3) MCV (test code = 69.3 fL 80.6-95.5 L 787-2) MCH (test code = 19.5 pg 25.9-32.8 L 785-6) MCHC (test code = 28.2 g/dL 31.6-35.1 L 786-4) RDW-SD (test code = 48.6 fL 39.0-49.9 49382-2) RDW-CV (test code = 20.5 % 12.0-15.5 H 788-0) PLT (test code = See_Comment [Automated 777-3) message] The system which generated this result transmitted reference range : 166 - 358 10*3/?L. The reference range was not used to interpret this result as normal/abnormal . MPV (test code = 10.6 fL 9.5-12.9 20450-7) NRBC/100 WBC (test See_Comment [Automat ed code = 2072214741) message] The system which generated this result transmitted reference range : 0.0 - 10.0 /100 WBCs. The reference range was not used to interpret this result as normal/abnormal . NRBC x10^3 (test code See_Comment [Auto mated = 1239782909) message] The system which generated this result transmitted reference range : 10*3/?L. The reference range was not used to interpret this result as normal/abnormal . GRAN MAT (NEUT) % 77.1 % (test code = 770-8) IMM GRAN % (test code 4.50 % = 7537768550) LYMPH % (test code = 9.4 % 736-9) MONO % (test code = 7.1 % 5905-5) EOS % (test code = 1.3 % 713-8) BASO % (test code = 0.6 % 706-2) GRAN MAT x10^3(ANC) 9.67 10*3/uL 1.88-7.09 H (test code = 6727226532) IMM GRAN x10^3 (test 0.57 10*3/uL 0.00-0.06 H code = 3766010100) LYMPH x10^3 (test 1.18 10*3/uL 1.32-3.29 L code = 731-0) MONO x10^3 (test code 0.89 10*3/uL 0.33-0.92 = 742-7) EOS x10^3 (test code 0.16 10*3/uL 0.03-0.39 = 711-2) BASO x10^3 (test code 0.07 10*3/uL 0.01-0.07 = 704-7) BANDS (test code = MARKED INCREASED A 9461513910) TOXIC CHANGES (test Present A code = 803-7) GIANT PLATELETS (test Present See_Comment A [Auto mated code = 5908-9) message] The system which generated this result transmitted reference range : (none). The reference range was not used to interpret this result as normal/abnormal . Lab Interpretation Abnormal (test code = 64127-1) [facility] PELVIS COMPLETE WITH [id number] 16:24:50HISTORY: Fever, tubo-ovarian abscess. TECHNIQUE: Both transabdominal and transvaginal pelvic ultrasound studieswere completed by the technologist. FINDINGS: Comparison made with CT studies of 11/16/2020 as well as ultrasoundstudy of 11/16/2020. Uterus is elongated shaped, enlarged, measures approximately 11.6 x 4.4 x6.3 cm in size with homogeneous echo texture of the myometrium. Smallnabothian cysts are seen in the cervix, the largest is 13 mm . Endometrialecho complex is 3.9 mm. No free fluid in the cul-de-sac. Right ovary is 6.3 x 4.3 x 5.2 cm (75.06 ml) and left ovary is 2.8 x 2.8 x1.7 cm (6.94 ml). Multiple complex hypoechoic lesions are seen adjacent tothe right ovary, ranging from 2.5 cm or smaller in size. Doppler signalover the right ovary is noted, therefore, ovarian torsion is not stronglysuspected. CONCLUSIONS: 1. Enlarged uterus without any focal myometrial abnormalities.2. No endometrial hyperplasia.3. Enlarged right ovary due to multiple complex cystic lesions locatedadjacent to the ovary. Findings are nonspecific and of uncertain etiology.Ovarian torsion is not likely. Findings are not suggestive of tubo- ovarianabscess. My suggestion is to repeat CT scan with oral and intravenouscon trast media (not just with intravenous contrast only). Note: This case was discussed with emergency room physician at 11:14 AM. [facility], Radiant Results Inft User - 11/22/2020 11:26 AM CDTHISTORY: Fever, tubo-ovarian abscess.TECHNIQUE: Both transabdominal and transvaginal pelvic ultrasound studieswere completed by the technologist.FINDINGS: Comparison made with CT studies of 11/16/2020 as well as ultrasoundstudy of 11/16/2020.Uterus is elongated shaped, enlarged, measures approximately 11.6 x 4.4 x6.3 cm in size with homogeneous echo texture of the myometrium. Smallnabothian cysts are seen in the cervix, the largest is 13 mm . Endometrialecho complex is 3.9 mm. No free fluid in the cul-de-sac. Right ovary is 6.3 x 4.3 x 5.2 cm (75.06 ml) and left ovary is 2.8 x 2.8 x1.7 cm (6.94 ml). Multiple complex hypoechoic lesions are seen adjacent tothe right ovary, ranging from 2.5 cm or smaller in size. Dopplersignalover the right ovary is noted, therefore, ovarian torsion is not stronglysuspected.CONCLUSIONS: 1. Enlarged uterus without any focal myometrial abnormalities.2. No endometrial hyperplasia.3. Enlarged right ovary due to multiple complex cystic lesions locatedadjacent to the ovary. Findings are nonspecific and of uncertain etiology.Ovarian torsion is not likely. Findings are not suggestive of tubo- ovarianabscess. My suggestion is to repeat CT scan with oral and intravenouscontrast media (not just with intravenous contrast only).Note: This case was discussed with emergency room physician at 11:14 AM.[facility]. Metabolic Panel (54038)2020-11-22 16:22:13 Test Item Value Reference Range Interpretation Comments NA (test code = 141 mmol/L 135-145 6683356892) K (test code = 3.3 mmol/L 3.5-5.0 L 1832129474) CL (test code = 107 mmol/L 98-108 7433732730) CO2 TOTAL (test code = 25 mmol/L 23-31 5387917957) AGAP (test code = 2-16 9185340452) BUN (test code = 8 mg/dL 7-23 5023613449) GLUCOSE (test code = 153 mg/dL 70-110 H 1792950096) CREATININE (test code = 0.50 mg/dL 0.50-1.04 9010314164) TOTAL BILI (test code = 1.1 mg/dL 0.1-1.2 2531722237) CALCIUM (test code = 8.0 mg/dL 8.6-10.6 L 9260331883) T PROTEIN (test code = 6.1 g/dL 6.3-8.2 L 7965129694) ALBUMIN (test code = 3.0 g/dL 3.5-5.0 L 2088108223) ALK PHOS (test code = 113 U/L 34-122 7504796352) ALTv (test code = 716 U/L 5-35 H 1742-6) AST(SGOT) (test code = 787 U/L 13-40 H 7120861620) eGFR (test code = mL/min/1.73m2 4722023562) GENTRY (test code = GENTRY) Association of Glomerular Filtration Rate (GFR) and Staging of Kidney Disease* + --+ --+ ------+| GFR (mL/min/1.73 m2) ?| With Kidney Damage ?| ?Without Kidney Damage+ --------+ --------+ +| ?>90 ?| ?Stage one ?| ? Normal ?+ ---+ ---+ -------+| ?60-89 ?| ?Stage two ?| ? Decreased GFR ? + --+ --+ ------+| ?30-59 ?| ?Stage three ?| ? Stage three ? + --+ --+ ------+| ?15-29 ?| ?Stage four ? | ? Stage four ?+ ---+ ---+ -------+| ?<15 (or dialysis) ? ?| ?Stage five ? | ? Stage five ?+ ---+ ---+ -------+ *Each stage assumes the associated GFR level has been in effect for at least three months. ?Stages 1 to 5, with or without kidney disease, indicate chronic kidney disease. Notes: Determination of stages one and two (with eGFR >59mL/min/1.73 m2) requires estimation of kidney damage for at least three months as defined by structural or functional abnormalities of the kidney, manifested by either:Pathological abnormalities or Markers of kidney damage (including abnormalities in the composition of the blood or urine or abnormalities in imaging tests). Lab Interpretation Abnormal (test code = 44198-2) [facility] (ID NOW RAPID TESTING)2020-11-22 15:50:47 Test Item Value Reference Range Interpretation Comments SARS-CoV-2 Rapid ID NOW Not Detected Not Detected (test code = 27988-3) GENTRY (test code = GENTRY) ID NOW COVID-19 Assay is an isothermal nucleic acid amplification test intended for the qualitative detection of nucleic acid from SARS-CoV-2 viral RNA in nasopharyngeal (DATA PROCESSING OPERATOR) specimens. It is used under Emergency Use Authorization (EUA) by FDA. The limit of detection (LOD) of the assay is 125 Genome Equivalents/mL. A positive result is indicative of the presence of SARS-CoV-2 RNA. ?Clinical correlation with patient history and other diagnostic information is necessary to determine patient infection status. A negative (Not Detected) result does not preclude SARS-CoV-2 infection. In patients with clinical symptoms and other tests that are consistent with SARS-CoV-2 infection, negative results should be treated as presumptive negative and a new specimen should be tested with alternative PCR molecular test. Invalid: Please collect a new specimen for repeat patient testing if clinically indicated. Lab Interpretation Normal (test code = 73623-7) [facility] CenterL[facility] Acid Whole [id number] 15:27:41 Test Item Value Reference Range Interpretation Comments LACTIC ACID (test code = 4.07 mmol/L 0.50-2.20 H 7411058257) Lab Interpretation (test code = Abnormal 85196-8) [facility] CenterCB WITH [id number] 10:52:28 Test Item Value Reference Range Interpretation Comments WBC (test code = See_Comment [Automated 6690-2) message] The sy stem which generated this result transmitted reference range : 4.30 - 11.10 10*3/?L. The reference range was not used to interpret this result as normal/abnormal . RBC (test code = See_Comment [Automated 469-8) message] The sy stem which generated this result transmitted reference range : 3.93 - 5.25 10*6/?L. The reference range was not used to interpret this result as normal/abnormal . HGB (test code = 9.3 g/dL 11.6-15.0 L 718-7) HCT (test code = 32.2 % 35.7-45.2 L 4544-3) MCV (test code = 67.6 fL 80.6-95.5 L 787-2) MCH (test code = 19.5 pg 25.9-32.8 L 785-6) MCHC (test code = 28.9 g/dL 31.6-35.1 L 786-4) RDW-SD (test code = 46.7 fL 39.0-49.9 72230-7) RDW-CV (test code = 20.0 % 12.0-15.5 H 788-0) PLT (test code = See_Comment [Automated 777-3) message] The sy stem which generated this result transmitted reference range : 166 - 358 10*3/ ?L. The reference r zeeshan was not used to interpret this result as normal/abnormal . MPV (test code = 9.9 fL 9.5-12.9 56863-6) NRBC/100 WBC (test See_Comment [Automat ed code = 3884421808) message] The system which generated this result transmitted reference range : 0.0 - 10.0 /100 WBCs. The refer ence range was not u sed to interpret th is result as normal/abnormal . NRBC x10^3 (test code See_Comment [Auto mated = 7802177623) message] The s ystem which generated this result transmitted reference range : 10*3/?L. The reference range was not used to interpret this result as normal/abnormal . GRAN MAT (NEUT) % 72.7 % (test code = 770-8) IMM GRAN % (test code 1.30 % = 9912618382) LYMPH % (test code = 15.3 % 736-9) MONO % (test code = 9.5 % 5905-5) EOS % (test code = 0.6 % 713-8) BASO % (test code = 0.6 % 706-2) GRAN MAT x10^3(ANC) 7.66 10*3/uL 1.88-7.09 H (test code = 8287755279) IMM GRAN x10^3 (test 0.14 10*3/uL 0.00-0.06 H code = 9856777902) LYMPH x10^3 (test code 1.61 10*3/uL 1.32-3.29 = 731-0) MONO x10^3 (test code 1.00 10*3/uL 0.33-0.92 H = 742-7) EOS x10^3 (test code = 0.06 10*3/uL 0.03-0.39 711-2) BASO x10^3 (test code 0.06 10*3/uL 0.01-0.07 = 704-7) Lab Interpretation Abnormal (test code = 74114-5) [facility] CenterGC & CHLAMYDIA AMPLIFIED [id number] 19:39:55 Test Item Value Reference Range Interpretation Comments C. trachomatis Nucleic Negative Negative Acid (test code = 12095-5) N. gonorrhoeae Nucleic Negative Negative Acid (test code = 98692-0) GENTRY (test code = GENTRY) Reliable results are dependent on adequate specimen collection. ? A positive result obtained from a patient after therapeutic treatment cannot be interpreted as indicating the presence of viable organisms. ?For patients on whom a false positive result may have adverse psychosocial impact, retesting is advised. Indeterminate: Unable to generate a valid test result on this specimen. ?Please submit a new specimen for repeat testing if clinically indicated. Chlamydia trachomatis/Neisseria gonorrhoeae nucleic acid amplification testing (NAAT) has not been validated for medico-legal specimens (sexual abuse in carlos-pubertal and pre-pubertal children, sexual assault, and legal cases). ?Culture for Chlamydia trachomatis and/or Neisseria gonorrhoeae from clinically appropriate sites is the method of choice in these cases. ? Results from this testing should be interpreted in conjunction with other laboratory and clinical data available to the clinician.For females in general, a urine specimen is a second-line option because it is considered less sensitive than a cervical swab for Chlamydia trachomatis and/or Neisseria gonorrhoeae NAAT. Lab Interpretation Normal (test code = 59112-1) [facility] CenterLAB ONLY COVID [id number] 12:05:06COVID DMT InterpretationInterpretation/Recommendations: Molecular NAAT Tests for Active Infection with the SARS-CoV-2 Virus: The patient has currently tested negative for the SARS-CoV-2 virus that causes COVID-19 illness. This most likely indicates that the patient does not have an active infection with the SARS-CoV-2 virus. However, infection is not completely ruled out as the false negative rate for molecular NAAT testing using a nasopharyngeal sample can be up to 30%, mostly dependent on the timing of sample collection in relation to illness onset and any deficiencies in sampling techniques. If the patient has symptoms concerning for COVID-19 illness, a repeat NAAT test (PCR, Rapid ID Now, etc.) should be performed, at which time the SARS-CoV-2 virus - if present - may have reached a detectable viral load (usually peaking by the end of the first week of symptoms). Tests for IgM and/or IgG Antibodies to the SARS-CoV-2 Virus: If the patient develops COVID-19 illness in the future, testing for IgM and IgG antibodies approximately 3 weeks after illness onset will likely indicate if the patient has produced antibodies to the SARS-CoV-2 virus. However, some patients may take longer to develop detectable antibodies, while some patients who were infected with SARS-CoV-2 may never develop antibodies. While antibodies to SARS-CoV-2 may provide some degree of immunity, at this time the strength and duration of the antibody response is unknown. Interpretation Result Comments:These interpretation comments are based upon all COVID-19 testing the patient has had at [facility], including molecular NAAT testing (more commonly known as PCR testing and Rapid ID Now testing) and antibody testing. It does not take into account any testingthat a patient has had outside of the [facility] medical record. [facility] LABORATORY SERVICESCOVID [id number] Rapid ID NOW (no units) ? ? Date ? Value ? 11/18/2020 ? Not Detected ? ? ? 11/16/2020 ? Not Detected ? [facility]UnSt[facility] WITH [id number] 11:26:34 Test Item Value Reference Range Interpretation Comments WBC (test code = See_Comment H [Automated 9046-2) message] The sy stem which generated this result transmitted reference range : 4.30 - 11.10 10*3/?L. The reference range was not used to interpret this result as normal/abnormal . RBC (test code = See_Comment [Automated 123-8) message] The sy stem which generated this result transmitted reference range : 3.93 - 5.25 10*6/?L. The reference range was not used to interpret this result as normal/abnormal . HGB (test code = 9.1 g/dL 11.6-15.0 L 718-7) HCT (test code = 33.2 % 35.7-45.2 L 4544-3) MCV (test code = 68.9 fL 80.6-95.5 L 787-2) MCH (test code = 18.9 pg 25.9-32.8 L 785-6) MCHC (test code = 27.4 g/dL 31.6-35.1 L 786-4) RDW-SD (test code = 47.5 fL 39.0-49.9 42022-9) RDW-CV (test code = 20.1 % 12.0-15.5 H 788-0) PLT (test code = See_Comment [Automated 777-3) message] The sy stem which generated this result transmitted reference range : 166 - 358 10*3/ ?L. The reference r zeeshan was not used to interpret this result as normal/abnormal . MPV (test code = 10.6 fL 9.5-12.9 63665-6) IPF % (test code = 5.4 % 1.3-7.7 Platelet count [id number]) measured by fluorescence method. NRBC/100 WBC (test See_Comment [Automat ed code = 6145731220) message] The system which generated this result transmitted reference range : 0.0 - 10.0 /100 WBCs. The refer ence range was not u sed to interpret th is result as normal/abnormal . NRBC x10^3 (test code See_Comment [Auto mated = 3253685438) message] The s ystem which generated this result transmitted reference range : 10*3/?L. The reference range was not used to interpret this result as normal/abnormal . GRAN MAT (NEUT) % 77.9 % (test code = 770-8) IMM GRAN % (test code 0.90 % = 0916909069) LYMPH % (test code = 11.1 % 736-9) MONO % (test code = 9.2 % 5905-5) EOS % (test code = 0.5 % 713-8) BASO % (test code = 0.4 % 706-2) GRAN MAT x10^3(ANC) 8.96 10*3/uL 1.88-7.09 H (test code = 7567736307) IMM GRAN x10^3 (test 0.10 10*3/uL 0.00-0.06 H code = 9268473069) LYMPH x10^3 (test code 1.28 10*3/uL 1.32-3.29 L = 731-0) MONO x10^3 (test code 1.06 10*3/uL 0.33-0.92 H = 742-7) EOS x10^3 (test code = 0.06 10*3/uL 0.03-0.39 711-2) BASO x10^3 (test code 0.05 10*3/uL 0.01-0.07 = 704-7) Lab Interpretation Abnormal (test code = 08417-3) [facility] Screen by Kris [id number] 20:59:57 Test Item Value Reference Range Interpretation Comments MSSA Screen by Kris SORENSEN (test code Negative Negative = 08551-7) MRSA/MSSA Positive? (test code = No No [id number]) Lab Interpretation (test code = Normal 62507-1) [facility] WITH [id number] 09:13:31 Test Item Value Reference Range Interpretation Comments WBC (test code = See_Comment [Automated 4390-2) message] The sy stem which generated this result transmitted reference range : 4.30 - 11.10 10*3/?L. The reference range was not used to interpret this result as normal/abnormal . RBC (test code = See_Comment [Automated 549-8) message] The sy stem which generated this result transmitted reference range : 3.93 - 5.25 10*6/?L. The reference range was not used to interpret this result as normal/abnormal . HGB (test code = 9.4 g/dL 11.6-15.0 L 718-7) HCT (test code = 33.7 % 35.7-45.2 L 4544-3) MCV (test code = 69.9 fL 80.6-95.5 L 787-2) MCH (test code = 19.5 pg 25.9-32.8 L 785-6) MCHC (test code = 27.9 g/dL 31.6-35.1 L 786-4) RDW-SD (test code = 49.4 fL 39.0-49.9 88418-2) RDW-CV (test code = 20.2 % 12.0-15.5 H 788-0) PLT (test code = See_Comment [Automated 777-3) message] The sy stem which generated this result transmitted reference range : 166 - 358 10*3/ ?L. The reference r zeeshan was not used to interpret this result as normal/abnormal . MPV (test code = 10.3 fL 9.5-12.9 03055-4) NRBC/100 WBC (test See_Comment [Automat ed code = 1134260818) message] The system which generated this result transmitted reference range : 0.0 - 10.0 /100 WBCs. The refer ence range was not u sed to interpret th is result as normal/abnormal . NRBC x10^3 (test code See_Comment [Auto mated = 4956159152) message] The s ystem which generated this result transmitted reference range : 10*3/?L. The reference range was not used to interpret this result as normal/abnormal . GRAN MAT (NEUT) % 76.0 % (test code = 770-8) IMM GRAN % (test code 0.50 % = 1781614644) LYMPH % (test code = 12.0 % 736-9) MONO % (test code = 8.9 % 5905-5) EOS % (test code = 2.1 % 713-8) BASO % (test code = 0.5 % 706-2) GRAN MAT x10^3(ANC) 8.33 10*3/uL 1.88-7.09 H (test code = 8419265662) IMM GRAN x10^3 (test 0.06 10*3/uL 0.00-0.06 code = 4841776185) LYMPH x10^3 (test code 1.32 10*3/uL 1.32-3.29 = 731-0) MONO x10^3 (test code 0.98 10*3/uL 0.33-0.92 H = 742-7) EOS x10^3 (test code = 0.23 10*3/uL 0.03-0.39 711-2) BASO x10^3 (test code 0.05 10*3/uL 0.01-0.07 = 704-7) POLYCHROMASIA (test 2+ See_Comment [Automa zaria code = 36140-2) message] The system which generated this result transmitted reference range : 2+. The referen ce range was not u sed to interpret th is result as normal/abnormal . Lab Interpretation Abnormal (test code = 91351-1) [facility] CenterMAGN[facility]IUM[facility] 08:59:35 Test Item Value Reference Range Interpretation Comments MAGNESIUM (test code = 9855706598) 1.8 mg/dL 1.7-2.4 Lab Interpretation (test code = Normal 35535-2) [facility] (NA, K, CL, CO2, GLUCOSE, BUN, CREATININE, CA)2020-11-19 08:59:35 Test Item Value Reference Range Interpretation Comments NA (test code = 135 mmol/L 135-145 0360708803) K (test code = 4.0 mmol/L 3.5-5.0 7430659593) CL (test code = 108 mmol/L 98-108 1585886094) CO2 TOTAL (test code = 21 mmol/L 23-31 L 2068274740) AGAP (test code = 2-16 4463689551) BUN (test code = 13 mg/dL 7-23 3560210902) GLUCOSE (test code = 96 mg/dL 70-110 8449273170) CREATININE (test code = 0.56 mg/dL 0.50-1.04 2509808325) CALCIUM (test code = 8.4 mg/dL 8.6-10.6 L 4048109912) eGFR (test code = mL/min/1.73m2 4587687036) GENTRY (test code = GENTRY) Association of Glomerular Filtration Rate (GFR) and Staging of Kidney Disease* + --+ --+ ------+| GFR (mL/min/1.73 m2) ?| With Kidney Damage ?| ?Without Kidney Damage+ --------+ --------+ +| ?>90 ?| ?Stage one ?| ? Normal ?+ ---+ ---+ -------+| ?60-89 ?| ?Stage two ?| ? Decreased GFR ? + --+ --+ ------+| ?30-59 ?| ?Stage three ?| ? Stage three ? + --+ --+ ------+| ?15-29 ?| ?Stage four ? | ? Stage four ?+ ---+ ---+ -------+| ?<15 (or dialysis) ? ?| ?Stage five ? | ? Stage five ?+ ---+ ---+ -------+ *Each stage assumes the associated GFR level has been in effect for at least three months. ?Stages 1 to 5, with or without kidney disease, indicate chronic kidney disease. Notes: Determination of stages one and two (with eGFR >59mL/min/1.73 m2) requires estimation of kidney damage for at least three months as defined by structural or functional abnormalities of the kidney, manifested by either:Pathological abnormalities or Markers of kidney damage (including abnormalities in the composition of the blood or urine or abnormalities in imaging tests). Lab Interpretation Abnormal (test code = 43296-9) [facility] WITH [id number] 03:39:14 Test Item Value Reference Range Interpretation Comments WBC (test code = See_Comment H [Automated 1690-2) message] The sy stem which generated this result transmitted reference range : 4.30 - 11.10 10*3/?L. The reference range was not used to interpret this result as normal/abnormal . RBC (test code = See_Comment [Automated 789-8) message] The sy stem which generated this result transmitted reference range : 3.93 - 5.25 10*6/?L. The reference range was not used to interpret this result as normal/abnormal . HGB (test code = 9.3 g/dL 11.6-15.0 L 718-7) HCT (test code = 33.2 % 35.7-45.2 L 4544-3) MCV (test code = 69.9 fL 80.6-95.5 L 787-2) MCH (test code = 19.6 pg 25.9-32.8 L 785-6) MCHC (test code = 28.0 g/dL 31.6-35.1 L 786-4) RDW-SD (test code = 49.2 fL 39.0-49.9 17944-3) RDW-CV (test code = 20.1 % 12.0-15.5 H 788-0) PLT (test code = See_Comment [Automated 777-3) message] The sy stem which generated this result transmitted reference range : 166 - 358 10*3/ ?L. The reference r zeeshan was not used to interpret this result as normal/abnormal . MPV (test code = 10.7 fL 9.5-12.9 66625-1) IPF % (test code = 4.3 % 1.3-7.7 Platelet count 1278131267) measured by fluorescence method. NRBC/100 WBC (test See_Comment [Automat ed code = 5907223369) message] The system which generated this result transmitted reference range : 0.0 - 10.0 /100 WBCs. The refer ence range was not u sed to interpret th is result as normal/abnormal . NRBC x10^3 (test code See_Comment [Auto mated = 9393763106) message] The s ystem which generated this result transmitted reference range : 10*3/?L. The reference range was not used to interpret this result as normal/abnormal . GRAN MAT (NEUT) % 77.7 % (test code = 770-8) IMM GRAN % (test code 0.40 % = 9370041346) LYMPH % (test code = 12.2 % 736-9) MONO % (test code = 7.2 % 5905-5) EOS % (test code = 2.1 % 713-8) BASO % (test code = 0.4 % 706-2) GRAN MAT x10^3(ANC) 8.91 10*3/uL 1.88-7.09 H (test code = 1876171347) IMM GRAN x10^3 (test 0.05 10*3/uL 0.00-0.06 code = 2322344498) LYMPH x10^3 (test code 1.40 10*3/uL 1.32-3.29 = 731-0) MONO x10^3 (test code 0.83 10*3/uL 0.33-0.92 = 742-7) EOS x10^3 (test code = 0.24 10*3/uL 0.03-0.39 711-2) BASO x10^3 (test code 0.05 10*3/uL 0.01-0.07 = 704-7) PAMELA CELLS (test code 2+ See_Comment A [Auto mated = 7790-9) message] The sy stem which generated this result transmitted reference range : (none). The reference range was not used to interpret this result as normal/abnormal . POLYCHROMASIA (test 2+ See_Comment [Automa zaria code = 38488-1) message] The system which generated this result transmitted reference range : 2+. The referen ce range was not u sed to interpret th is result as normal/abnormal . Lab Interpretation Abnormal (test code = 66818-8) [facility] CenterTROPONIN [id number] 03:39:09 Test Item Value Reference Range Interpretation Comments TROPONIN I (test 0.005 ng/mL See_Comment [Automated code = 9024171766) message] The system which generated this result transmitted reference range : <=0.034. The reference range was not used to interpret this result as normal/abnormal . GENTRY (test code = Equal or Less than GENTRY) 0.034 ng/ml---Normal ?Note: Cardiac troponin begins to rise 3-4 hours after the onset of ischemia. Repeat in 4-6 hours if the sample was drawn within 3-4 hours of the onset of the symptom and found normal. Between 0.035 and 0.120 ng/mL--- Borderline. Questionable myocardial injury or necrosis ? ?Note: Serial measurement may be necessary to confirm or exclude the diagnosis of myocardial injury or necrosis; Clinical correlation (symptoms, EKGs, imaging studies, and others) required; Repeat in 4-6 hours if clinically indicated. ? Equal or Higher than 0.121 ng/mL---Abnormal. Myocardial Injury or Necrosis Likely ? Biotin has been reported to cause a negative bias, interpret results relative to patient's use of biotin. ? Lab Interpretation Normal (test code = 42757-1) [facility] (NA, K, CL, CO2, GLUCOSE, BUN, CREATININE, CA)2020-11-19 03:24:50 Test Item Value Reference Range Interpretation Comments NA (test code = 137 mmol/L 135-145 7548885248) K (test code = 3.9 mmol/L 3.5-5.0 6566946762) CL (test code = 107 mmol/L 98-108 9316605535) CO2 TOTAL (test code = 21 mmol/L 23-31 L 2553285719) AGAP (test code = 2-16 0342571953) BUN (test code = 13 mg/dL 7-23 9986974443) GLUCOSE (test code = 105 mg/dL 70-110 0951418977) CREATININE (test code = 0.63 mg/dL 0.50-1.04 5072845139) CALCIUM (test code = 8.4 mg/dL 8.6-10.6 L 7327618311) eGFR (test code = mL/min/1.73m2 2609101066) GENTRY (test code = GENTRY) Association of Glomerular Filtration Rate (GFR) and Staging of Kidney Disease* + --+ --+ ------+| GFR (mL/min/1.73 m2) ?| With Kidney Damage ?| ?Without Kidney Damage+ --------+ --------+ +| ?>90 ?| ?Stage one ?| ? Normal ?+ ---+ ---+ -------+| ?60-89 ?| ?Stage two ?| ? Decreased GFR ? + --+ --+ ------+| ?30-59 ?| ?Stage three ?| ? Stage three ? + --+ --+ ------+| ?15-29 ?| ?Stage four ? | ? Stage four ?+ ---+ ---+ -------+| ?<15 (or dialysis) ? ?| ?Stage five ? | ? Stage five ?+ ---+ ---+ -------+ *Each stage assumes the associated GFR level has been in effect for at least three months. ?Stages 1 to 5, with or without kidney disease, indicate chronic kidney disease. Notes: Determination of stages one and two (with eGFR >59mL/min/1.73 m2) requires estimation of kidney damage for at least three months as defined by structural or functional abnormalities of the kidney, manifested by either:Pathological abnormalities or Markers of kidney damage (including abnormalities in the composition of the blood or urine or abnormalities in imaging tests). Lab Interpretation Abnormal (test code = 54792-1) [facility] CenterCOVID[facility] (ID NOW RAPID TESTING)2020-11-19 03:16:28 Test Item Value Reference Range Interpretation Comments SARS-CoV-2 Rapid ID NOW Not Detected Not Detected (test code = 27117-2) GENTRY (test code = GENTRY) ID NOW COVID-19 Assay is an isothermal nucleic acid amplification test intended for the qualitative detection of nucleic acid from SARS-CoV-2 viral RNA in nasopharyngeal (DATA PROCESSING OPERATOR) specimens. It is used under Emergency Use Authorization (EUA) by FDA. The limit of detection (LOD) of the assay is 125 Genome Equivalents/mL. A positive result is indicative of the presence of SARS-CoV-2 RNA. ?Clinical correlation with patient history and other diagnostic information is necessary to determine patient infection status. A negative (Not Detected) result does not preclude SARS-CoV-2 infection. In patients with clinical symptoms and other tests that are consistent with SARS-CoV-2 infection, negative results should be treated as presumptive negative and a new specimen should be tested with alternative PCR molecular test. Invalid: Please collect a new specimen for repeat patient testing if clinically indicated. Lab Interpretation Normal (test code = 10689-7) [facility] CenterPROTHROMBIN TIME / [id number] 03:14:48 Test Item Value Reference Range Interpretation Comments PROTIME PATIENT (test See_Comment H [Auto mated message] code = 5964-2) The system [employer] generated this result transmitted ref erence range: 10.1 - 1 2.6 Seconds. The reference range was not used to int erpret this result as normal/abnormal . INR (test code = 6301-6) Nor mal INR <1.1; Warfarin Therap eutic range 2.0 to 3. 0 or 2.5 to 3.5, dep ending upon the indica tions. Lab Interpretation (test Abnormal code = 18287-0) [facility] CenterACTIVATED PARTIAL THRMPLAS [id number] 03:14:48 Test Item Value Reference Range Interpretation Comments APTT Patient (test code = See_Comment [ Automated message] 3173-2) The system [employer] generated this result transmitted ref erence range: 26 - 36 Seconds. The re ference range was not u sed to interpret this result as normal/abnor mal. Lab Interpretation (test Normal code = 68627-9) [facility] CenterFIBRINOGEN2021-04-04 03:14:48 Test Item Value Reference Range Interpretation Comments Fibrinogen (test code = 5641663273) 713 mg/dL 167-453 H Lab Interpretation (test code = Abnormal 83279-3) [facility] CenterLactic Acid Whole [id number] 03:00:24 Test Item Value Reference Range Interpretation Comments LACTIC ACID (test code = 1.52 mmol/L 0.50-2.20 3468689570) Lab Interpretation (test code = Normal 97724-2) [facility] CenterTHYROID STIMULATING [id number] 20:25:49 Test Item Value Reference Range Interpretation Comments TSH (test code = See_Comment Biotin has been 5373683724) reported to cau se a negative bias, interpret resul ts relative to pat ient's use of biotin. [Automated mess age] The system [employer] generated this result transmitted ref erence range: 0.45 - 4 .70 mIU/L. The refe rence range was not u sed to interpret this result as normal/abnor mal. Lab Interpretation (test Normal code = 43372-0) [facility] CenterCT CHEST PULMONARY [id number] 18:59:02 1. No evidence of pulmonary embolism.2. No acute process in the chest. RL: 518 AFC: [id number] End of report ORDERING PHYSICIAN: DANISH RESENDIZ CLINICAL HISTORY: Respiratory failure elevated D-Dimmer TECHNIQUE: CT angiogram chest was performed following administration ofintravenous contrast. MIP images were generated. CT scan was done accordingto ALARA (As Low as Reasonably Achievable). TECHNICAL QUALITY: Good COMPARISON: None FINDINGS: There is excellent opacification of the pulmonary arteries. Thereare no intraluminal defects present within the central, main right, mainleft, segmental and subsegmental pulmonary arteries. There is no saddleembolus. There is suboptimal opacification of the thoracic aorta for evaluation ofdissection due to phase of contrast imaging. There is no aneurysm. The lungs are clear. There is no pneumothorax. There is no pleuraleffusion. The central airways are clear. The heart is normal in size. There is no pericardial fluid. There is no mediastinal lymphadenopathy. There is no hilar lymphadenopathy.There is no axillary lymphadenopathy. The thyroid gland is normal in appearance. There is no supraclavicularlymphadenopathy. Limited imaging of the upper abdomen demonstrates no acute process. There is no compression fracture. There are osteophytes present in thethoracic spine. [facility], Radiant Results Inft User - 11/18/2020 2:00 PM CDTORDERING PHYSICIAN: DANISH MONTEZINICAL HISTORY: Respiratory failure elevated D-Dimmer TECHNIQUE: CT angiogram chest was performed following administration ofintravenous contrast. MIP images were generated. CT scan was done accordingto ALARA (As Low as Reasonably Achievable).TECHNICAL QUALITY: GoodCOMPARISON: NoneFINDINGS: There is excellent opacification of the pulmonary arteries. Thereare no intraluminal defects present within the central, main right, mainleft, segmental and subsegm ental pulmonary arteries. There is no saddleembolus.There is suboptimal opacification of the thoracic aorta for evaluation ofdissection due to phase of contrast imaging. There is no aneurysm.The lungs are clear. There is no pneumothorax. There is no pleuraleffusion. The central airways are clear.The he art is normal in size. There is no pericardial fluid.There is no mediastinal lymphadenopathy. There is no hilar lymphadenopathy.There is no axillary lymphadenopathy.The thyroid gland is normal in appearance. There is no supraclavicularlymphadenopathy.Limited imaging of the upper abdomen demonstrates no acute process.There is no compression fracture. There are osteophytes present in thethoracic spine.IMPRESSION1. No evidence of pulmonary embolism.2. No acute process in the chest.RL: 518AFC: [id number] of report [facility]St[facility] HospitalD-DIMER 2020-11-18 16:23:46 Test Item Value Reference Interpretation Comments Range D-DIMER (test code = See_Comment H [Autom ated 2719732881) message] The system which generated this result transmitted reference range : <0.41 ?g/mL (FEU). The reference range was not used to interpret this result as normal/abnormal . GENTRY (test code = This test may be GENTRY) used in conjunction with a clinical pretest probability (PTP) assessment model to exclude venous thromboembolism (VTE) in patients suspected of deep venous thrombosis (DVT) and pulmonary embolism (PE) A D-Dimer value less than 0.50 ?g/ml (FEU) has a negative predicative value of 96 to 100% (95% CI)and 97 to 100% (95% CI) as an aid in the diagnosis of deep vein thrombosis (DVT) and pulmonary embolism when there is low or moderate pretest probability of PE or DVT. D-Dimer values are expressed in initial fibrinogen equivalent units (FEU)" The assay results should be used with other information, including the clinical context, in forming a diagnosis. Lab Interpretation Abnormal (test code = 12677-5) [facility] WITH [id number] 15:09:23 Test Item Value Reference Range Interpretation Comments WBC (test code = See_Comment H [Automated 2590-2) message] The system which generated this result transmit zaria reference range : 4.30 - 11.10 10*3/?L. The reference range was not used to interpret this result as normal/abnormal . RBC (test code = See_Comment [Automated 389-8) message] The system which generated this result transmit zaria reference range : 3.93 - 5.25 10*6/?L. The reference range was not used to interpret this result as normal/abnormal . HGB (test code = 9.6 g/dL 11.6-15.0 L 718-7) HCT (test code = 34.8 % 35.7-45.2 L 4544-3) MCV (test code = 69.7 fL 80.6-95.5 L 787-2) MCH (test code = 19.2 pg 25.9-32.8 L 785-6) MCHC (test code = 27.6 g/dL 31.6-35.1 L 786-4) RDW-SD (test code = 49.1 fL 39.0-49.9 88039-3) RDW-CV (test code = 20.3 % 12.0-15.5 H 788-0) PLT (test code = See_Comment [Automated 777-3) message] The system which generated this result transmit zaria reference range : 166 - 358 10*3/ ?L. The reference range was not u sed to interpret th is result as normal/abnormal . MPV (test code = 10.7 fL 9.5-12.9 10304-5) NRBC/100 WBC (test See_Comment [Automat ed code = 6079896747) message] The system which generated this result transmit zaria reference range : 0.0 - 10.0 /100 WBCs. The reference range was not used to interpret this result as normal/abnormal . NRBC x10^3 (test code <0.01 See_Comment [Auto mated = 1157547386) message] The system which generated this result transmit zaria reference range : 10*3/?L. The reference range was not used to interpret this result as normal/abnormal . GRAN MAT (NEUT) % 84.9 % (test code = 770-8) IMM GRAN % (test code 0.50 % = 9821926663) LYMPH % (test code = 6.5 % 736-9) MONO % (test code = 6.0 % 5905-5) EOS % (test code = 1.6 % 713-8) BASO % (test code = 0.5 % 706-2) GRAN MAT x10^3(ANC) 10.06 10*3/uL 1.88-7.09 H (test code = 3079095830) IMM GRAN x10^3 (test 0.06 10*3/uL 0.00-0.06 code = 4434932509) LYMPH x10^3 (test code 0.77 10*3/uL 1.32-3.29 L = 731-0) MONO x10^3 (test code 0.71 10*3/uL 0.33-0.92 = 742-7) EOS x10^3 (test code = 0.19 10*3/uL 0.03-0.39 711-2) BASO x10^3 (test code 0.06 10*3/uL 0.01-0.07 = 704-7) Lab Interpretation Abnormal (test code = 95288-9) [facility] CenterLAB ONLY COVID [id number] 05:03:40COVID DMT InterpretationInterpretation/Recommendations: Molecular NAAT Tests for Active Infection with the SARS-CoV-2 Virus: The patient has currently tested negative for the SARS-CoV-2 virus that causes COVID-19 illness. This most likely indicates that the patient does not have an active infection with the SARS-CoV-2 virus. However, infection is not completely ruled out as the false negative rate for molecular NAAT testing using a nasopharyngeal sample can be up to 30%, mostly dependent on the timing of sample collection in relation to illness onset and any deficiencies in sampling techniques. If the patient has symptoms concerning for COVID-19 illness, a repeat NAAT test (PCR, Rapid ID Now, etc.) should be performed, at which time the SARS-CoV-2 virus - if present - may have reached a detectable viral load (usually peaking by the end of the first week of symptoms). Tests for IgM and/or IgG Antibodies to the SARS-CoV-2 Virus: If the patient develops COVID-19 illness in the future, testing for IgM and IgG antibodies approximately 3 weeks after illness onset will likely indicate if the patient has produced antibodies to the SARS-CoV-2 virus. However, some patients may take longer to develop detectable antibodies, while some patients who were infected with SARS-CoV-2 may never develop antibodies. While antibodies to SARS-CoV-2 may provide some degree of immunity, at this time the strength and duration of the antibody response is unknown. Interpretation Result Comments:These interpretation comments are based upon all COVID-19 testing the patient has had at [facility], including molecular NAAT testing (more commonly known as PCR testing and Rapid ID Now testing) and antibody testing. It does not take into account any testingthat a patient has had outside of the [facility] medical record. [facility] LABORATORY SERVICESCOVID [id number] Rapid ID NOW (no units) ? ? Date ? Value ? 11/16/2020 ? Not Detected ? [facility] CenterMATT PERKINS - [id number] 04:00:19 Test Item Value Reference Range Interpretation Comments RPR (Qualitative) (test code = Nonreactive Nonreactive 89038-8) Lab Interpretation (test code = Normal 61052-2) [facility] CenterHCV [id number] 23:27:45 Test Item Value Reference Range Interpretation Comments HCV Ab (test code = 06006-3) Negative HCV Semi-Quantitative (test code = 59964-6) [facility] CenterHEPATITIS B SURFACE [id number] 23:10:33 Test Item Value Reference Range Interpretation Comments HBsAg Semi-Quantitative (test code = Negative Negative 5195-3) [facility] CenterUS OVARY [id number] 21:01:58EXAM: PELVIS ULTRASOUND, TRANSABDOMINAL AND TRANSVAGINAL HISTORY:RLQ/Pelvic Pain with CT concerning for TOA vs Torsion COMPARISON:Same date CT FINDINGS: UTERUS: The anteverted uterus measures 11.5 x 4 x 6.8 cm and 164 mL. Theendometrium is not well visualized although it measures no more than 7 mmin thickness on the cine images. OVARIES: The right ovary measures 3.5 x 6.4 x 2.9 cm and 34 mL (thesemeasurements were acquired from the cine images as the provided images werein overestimate as they included the adjacent hypoattenuating collection).Normal arterial and venous waveforms acquired in the right ovary. A hypoattenuating collection is partially visualized abutting the rightovary is difficult to discern from the ovarian wall, concordant with thefindings on recent CT. The left ovary measures 3.4 x 2.9 x 2.3 cm and 12 mL. The left ovary wasnot identified in the transvaginal images. IMPRESSION Preserved arterial and venous flow in the right ovary with a paraovariancollection which is indiscernib le from the ovarian wall, concordant withthe recent CT and remaining suspicious for PID/TOA. Preliminary Report Dictated by Resident: Av Crow MD., have reviewed this study andagree with the abovereport.[facility], Radiant Results Inft User - 11/17/2020 4:03 PM CDTEXAM: PELVIS ULTRASOUND, TRANSABDOMINAL AND TRANSVAGINAL HISTORY:RLQ/Pelvic Pain with CT concerning for TOA vs TorsionCOMPARISON:Same date CTFINDINGS:UTERUS: The anteverted uterus measures 11.5 x 4 x 6.8 cm and 164 mL.Theendometrium is not well visualized although it measures no more than 7 mmin thickness on the cineimages. OVARIES: The right ovary measures 3.5 x 6.4 x 2.9 cm and 34 mL (thesemeasurements were acquired from the cine images as the provided images werein overestimate as they included the adjacent hypoattenuating collection).Normal arterial and venous waveforms acquired in the right ovary.A hypoattenuating collection is partially visualized abutting the rightovary is difficult to discern from the ovarian wall, concordant with thefindings on recent CT.The left ovary measures 3.4 x 2.9 x 2.3 cm and 12 mL. The left ovary wasnot identified in the transvaginal images.IMPRESSION Preserved arterial and venous flow in the right ovary with a paraovariancollection which is indiscernible from the ovarian wall, concordant withthe recent CT and remaining suspicious for PID/TOA.Preliminary Report Dictated by Resident: Nasir Lugo, Av Mckeon MD., have reviewed this study and agree with the abovereport.[facility] CenterHIV 1/2 AG-AB WITH [id number] 16:59:44 Test Item Value Reference Range Interpretation Comments HIV Negative Negative Semi-quantitative (test code = 10955-8) GENTRY (test code = Non-reactive for HIV-1 GENTRY) antigen and HIV-1/HIV-2 antibodies. ?No laboratory evidence of HIV infection. ?Repeat in 2-4 weeks if acute HIV infection is suspected. [facility] OR [facility] ONLY - WET [id number] 15:03:41 Test Item Value Reference Range Interpretation Comments CLUE CELLS WET PREP (test code = None Seen None Seen HPF 4435516181) BACTERIA WET PREP (test code = Moderate None Seen HPF A 2914625259) WBC WET PREP (test code = Moderate None Seen HPF A 0050682798) RBC WET PREP (test code = None Seen None Seen HPF 0483401841) TRICHOMONAS WET PREP (test code = None Seen None Seen HPF 8471276906) YEAST WET PREP (test code = None Seen None Seen HPF 5597381481) Lab Interpretation (test code = Abnormal 12208-4) [facility] CenterCT [facility] W [id number] 13:10:06 Pronounced inflammatory changes in the right lower quadrant/adnexasurrounding an area of 7.8 cm heterogenous soft tissue which abuts theright ovary and favors PID with possible tubo-ovarian abscess. No drainablefluid collections identified. Additional, less likely, diagnosticconsiderations are ovarian neoplasm and torsion although the degree ofinflammatory changes is highly suggestive of TOA. Severely hepatomegaly with marked heterogeneity suggesting chronic liverdisease. Nonspecific ill-defined area of hypoattenuation in the pancreatic tailwhich may represent sequela of prior inflammation. Preliminary Report Dictated by Resident: Kevin Crow ?MD. Bria, have reviewed this study and agree withthe above report.EXAM: CT ABDOMEN AND PELVIS WITH CONTRAST HISTORY: Abdominal pain, fever COMPARISON: None. TECHNIQUE: Contiguous axial imaging from the level of the lung basesthrough the pubic symphysis was performed after the uncomplicatedadministration of 120 cc of intravenous contrast. Coronal and sagittalimages were reconstructed. ?Auto mA and/or iterative reconstruction were used to reduce radiation dose. FINDINGS: LOWER THORAX: The lungs bases are clear. No cardiomegaly. LIVER: The liver is considerably enlarged with a craniocaudal dimension of26.6 cm. The hepatic parenchyma is markedly heterogenous. No focal hepaticlesions. ?Normal contour. GALLBLADDER AND BILIARY TREE:No biliary ductal dilation. Priorcholecystomy. PANCREAS: No ductal dilation. An ill-defined area of high attenuation isseen in the pancreatic tail which spans 3.8 x 3.3 cm (2:42), posteriorpercent sequela of prior pancreas inflammation. No peripancreaticinflammatory changes identified. SPLEEN: Multiple punctate calcified granulomas. ADRENAL GLANDS: No adrenal nodules. KIDNEYS: No hydronephrosis, stones, or masses. GI TRACT: No dilation. The thickening of the terminal ileum cecum is likelyreactive due to adjacent inflammatory changes. The appendix is unremarkable(2:108-98). A few scattered noninflamed colonic diverticula are present. PERITONEUM AND RETROPERITONEUM: Trace scattered free fluid. No free air.Marked inflammatory changes in the right lower quadrant/right adnexa asdetailed below. LYMPH NODES: Prominent periaortic and right lower quadrant lymph nodesidentified, likely reactive. VESSELS: Unremarkable. PELVIS/BLADDER: A large area of heterogenous soft tissue thickening measuring 5.8 x 7.7x5.1 cm (AP X TV x CC) is identified in the right lower abdominalquadrant/right adnexa. This collection abuts and is discernible from theanterolateral margin of the right ovary. A few normal-appearing rightovarian follicles are present. No drainable fluid collection identified.Considerable surroundingfat stranding is present. The urinary bladder and left ovary are unremarkable. The right margin ofthe uterus abuts the inflammation as described above with the remainingparts of the uterus being unremarkable BONES AND SOFT TISSUES: No suspicious lytic or sclerotic bony lesions.Moderate L4-S1 spondylosi s with suspected bilateral neural foraminalnarrowing at these levels. [facility], Radiant Results Inft User - 11/17/2020 8:11 AM CDTEXAM: CT ABDOMEN AND PELVIS WITH CONTRASTHISTORY: Abdominal pain, fever COMPARISON: None.TECHNIQUE: Contiguous axial imaging from the level of the lung basesthrough the pubic sy mphysis was performed after the uncomplicatedadministration of 120 cc of intravenous contrast. Coronal and sagittalimages were reconstructed. Auto mA and/or iterative reconstruction wereused to reduce radiation dose.FINDINGS:LOWER THORAX: The lungs bases are clear. No cardiomegaly.LIVER: The liver is c onsiderably enlarged with a craniocaudal dimension of26.6 cm. The hepatic parenchyma is markedly heterogenous. No focal hepaticlesions. Normal contour.GALLBLADDER AND BILIARY TREE: No biliary ductal dilation. Priorcholecystomy.PANCREAS: No ductal dilation. An ill-defined area of high attenuation isseen in the pancreatic tail which spans 3.8 x 3.3 cm (2:42), posteriorpercent sequela of prior pancreas inflammation. No peripancreaticinflammatory changes identified.SPLEEN: Multiple punctate calcified granulomas.ADRENAL GLANDS: No adrenal nodules.KIDNEYS: No hydronephrosis, stones, or masses.GI TRACT: No dilation. The thickening of the terminal ileum cecum is likelyreactive due to adjacent inflammatorychanges. The appendix is unremarkable(2:108-98). A few scattered noninflamed colonic diverticula arepresent.PERITONEUM AND RETROPERITONEUM: Trace scattered free fluid. No free air.Marked inflammatory changes in the right lower quadrant/right adnexa asdetailed below.LYMPH NODES: Prominent periaortic and right lower quadrant lymph nodesidentified, likely reactive.VESSELS: Unremarkable.PELVIS/BLADDER: A large area of heterogenous soft tissue thickening measuring 5.8 x 7.7 x5.1 cm (AP X TV x CC) is identified in the right lower abdominalquadrant/right adnexa. This collection abuts and is discernible from theanterolateral margin of the right ovary. A few normal-appearing rightovarian follicles are present. No drainable fluid collection identified.Considerable surrounding fat stranding is present.The urinary bladder and left ovary are unremarkable. The right margin ofthe uterus abuts the inflammationas described above with the remainingparts of the uterus being unremarkable BONES AND SOFT TISSUES: No suspicious lytic or sclerotic bony lesions.Moderate L4-S1 spondylosis with suspected bilateral neural foraminalnarrowing at these levels.IMPRESSIONPronounced inflammatory changes in the right lower qu adrant/adnexasurrounding an area of 7.8 cm heterogenous soft tissue which abuts theright ovary and favors PID with possible tubo-ovarian abscess. No drainablefluid collections identified. Additional, less likely, diagnosticconsiderations are ovarian neoplasm and torsion although the degree ofinflammatory changes is highly suggestive of TOA.Severely hepatomegaly with marked heterogeneity suggesting chronic liverdisease. Nonspecific ill-defined area of hypoattenuation in the pancreatic tailwhich may represent sequela of prior inflammation.Preliminary Report Dictated by Resident: Kevin Rogers MD., have reviewed this study and agree withthe above report.[facility] CenterCOVID-19 (ID NOW RAPID TESTING) 2020-11-17 03:57:41 Test Item Value Reference Range Interpretation Comments SARS-CoV-2 Rapid ID NOW Not Detected Not Detected (test code = 83571-3) GENTRY (test code = GENTRY) ID NOW COVID-19 Assay is an isothermal nucleic acid amplification test intended for the qualitative detection of nucleic acid from SARS-CoV-2 viral RNA in nasopharyngeal (DATA PROCESSING OPERATOR) specimens. It is used under Emergency Use Authorization (EUA) by FDA. The limit of detection (LOD) of the assay is 125 Genome Equivalents/mL. A positive result is indicative of the presence of SARS-CoV-2 RNA. ?Clinical correlation with patient history and other diagnostic information is necessary to determine patient infection status. A negative (Not Detected) result does not preclude SARS-CoV-2 infection. In patients with clinical symptoms and other tests that are consistent with SARS-CoV-2 infection, negative results should be treated as presumptive negative and a new specimen should be tested with alternative PCR molecular test. Invalid: Please collect a new specimen for repeat patient testing if clinically indicated. Lab Interpretation Normal (test code = 37647-3) [facility] Metabolic Panel (NA, K, CL, CO2, GLUCOSE, BUN, CREATININE, CA)2020-11-17 01:10:27 Test Item Value Reference Range Interpretation Comments NA (test code = 139 mmol/L 135-145 5887771806) K (test code = 4.2 mmol/L 3.5-5.0 7323435827) CL (test code = 106 mmol/L 98-108 4471595708) CO2 TOTAL (test code 26 mmol/L 23-31 = 5199253911) AGAP (test code = 2-16 2162002932) BUN (test code = 14 mg/dL 7-23 3071298711) GLUCOSE (test code = 109 mg/dL 70-110 3412166278) CREATININE (test code 0.68 mg/dL 0.50-1.04 = 4972031373) CALCIUM (test code = 9.1 mg/dL 8.6-10.6 0893665669) eGFR (test code = mL/min/1.73m2 0773144686) GENTRY (test code = GETNRY) Association of Glomerular Filtration Rate (GFR) and Staging of Kidney Disease* + + +- +| GFR (mL/min/1.73 m2) ?| With Kidney Damage ?| ?Without Kidney Damage+ ------+ ----+ ------+| ?>90 ?| ?Stage one ?| ? Normal ?+ -+ + -+| ?60-89 ?| ?Stage two ?| ? Decreased GFR ? + + +- +| ?30-59 ?| ?Stage three ?| ? Stage three ? + + +- +| ?15-29 ?| ?Stage four ? | ? Stage four ?+ -+ + -+| ?<15 (or dialysis) ? ?| ?Stage five ? | ? Stage five ?+ -+ + -+ *Each stage assumes the associated GFR level has been in effect for at least three months. ?Stages 1 to 5, with or without kidney disease, indicate chronic kidney disease. Notes: Determination of stages one and two (with eGFR >59mL/min/1.73 m2) requires estimation of kidney damage for at least three months as defined by structural or functional abnormalities of the kidney, manifested by either:Pathological abnormalities or Markers of kidney damage (including abnormalities in the composition of the blood or urine or abnormalities in imaging tests). [facility] (ALB, T.PRO, BILI T, BU/BC, ALT, AST, ALK PHOS)2020-11-17 01:10:27 Test Item Value Reference Range Interpretation Comments TOTAL BILI (test code = 7321339705) 1.2 mg/dL 0.1-1.1 H BILI UNCON (test code = 6002129511) 0.7 mg/dL 0.1-1.1 BILI CONJ (test code = 1809494750) 0.0 mg/dL 0.0-0.3 T PROTEIN (test code = 4372810226) 7.2 g/dL 6.3-8.2 ALBUMIN (test code = 1120539390) 4.2 g/dL 3.5-5.0 ALK PHOS (test code = 1032698372) 95 U/L 34-122 ALTv (test code = 1742-6) 16 U/L 5-35 AST(SGOT) (test code = 5400093231) 21 U/L 13-40 Lab Interpretation (test code = Abnormal 56356-9) [facility] CenterLipase [id number] 01:10:27 Test Item Value Reference Range Interpretation Comments LIPASE (test code = 3451439069) 111 U/L 0-220 Lab Interpretation (test code = Normal 76663-9) [facility] CenterUrinalysis2021-04-02 01:01:02 Test Item Value Reference Range Interpretation Comments APPEARANCE (test code = Cloudy Clear A 0112581567) COLOR (test code = Roxane Yellow A 2745888829) PH (test code = 4.8-8.0 1126647692) SP GRAVITY (test code = 1.003-1.030 2392702374) GLU U QUAL (test code = Normal Normal 6851821876) BLOOD (test code = Negative Negative 9108004547) KETONES (test code = Negative Negative 0245401221) PROTEIN (test code = 100 mg/dL Negative A 2887-8) UROBILIN (test code = 4.0 mg/dL Normal A 8459168857) BILIRUBIN (test code = 2 mg/dL Negative A 2477577131) NITRITE (test code = Negative Negative 3793704857) LEUK MARIE (test code = 250/uL Negative A 0439187954) RBC/HPF (test code = See_Comment H [Autom ated message] 2313123814) The system iSSimple generated this result transmit zaria reference range : 0 - 3 HPF. The refe rence range was not u sed to interpret th is result as normal/abnormal . WBC/HPF (test code = See_Comment H [Autom ated message] 5573644486) The system iSSimple generated this result transmit zaria reference range : 0 - 5 HPF. The refe rence range was not u sed to interpret th is result as normal/abnormal . BACTERIA (test code = Moderate Negative A 1795074141) MUCOUS (test code = Marked Negative LPF A 0702274400) SQ EPITH (test code = HPF 4523438293) YEAST BUD (test code = See_Comment H [Aut omated message] 2559353878) The system iSSimple generated this result transmit zaria reference range : <=1 HPF. The refere nce range was not u sed to interpret th is result as normal/abnormal . Lab Interpretation (test Abnormal code = 46447-2) [facility] with [id number] 00:57:04 Test Item Value Reference Range Interpretation Comments WBC (test code = See_Comment H [Automated 6690-2) message] The sy stem which generated this result transmitted reference range : 4.30 - 11.10 10*3/?L. The reference range was not used to interpret this result as normal/abnormal . RBC (test code = See_Comment H [Automated 789-8) message] The sy stem which generated this result transmitted reference range : 3.93 - 5.25 10*6/?L. The reference range was not used to interpret this result as normal/abnormal . HGB (test code = 11.2 g/dL 11.6-15.0 L 718-7) HCT (test code = 40.0 % 35.7-45.2 4544-3) MCV (test code = 68.7 fL 80.6-95.5 L 787-2) MCH (test code = 19.2 pg 25.9-32.8 L 785-6) MCHC (test code = 28.0 g/dL 31.6-35.1 L 786-4) RDW-SD (test code = 47.5 fL 39.0-49.9 58306-3) RDW-CV (test code = 20.6 % 12.0-15.5 H 788-0) PLT (test code = See_Comment [Automated 777-3) message] The sy stem which generated this result transmitted reference range : 166 - 358 10*3/ ?L. The reference r zeeshan was not used to interpret this result as normal/abnormal . MPV (test code = 10.8 fL 9.5-12.9 26796-1) IPF % (test code = 5.6 % 1.3-7.7 Platelet count 4511125151) measured by fluorescence method. NRBC/100 WBC (test See_Comment [Automat ed code = 8314212151) message] The system which generated this result transmitted reference range : 0.0 - 10.0 /100 WBCs. The refer ence range was not u sed to interpret th is result as normal/abnormal . NRBC x10^3 (test code <0.01 See_Comment [Auto mated = 6500990853) message] The s ystem which generated this result transmitted reference range : 10*3/?L. The reference range was not used to interpret this result as normal/abnormal . GRAN MAT (NEUT) % 85.6 % (test code = 770-8) IMM GRAN % (test code 0.70 % = 6994118768) LYMPH % (test code = 5.8 % 736-9) MONO % (test code = 6.6 % 5905-5) EOS % (test code = 0.9 % 713-8) BASO % (test code = 0.4 % 706-2) GRAN MAT x10^3(ANC) 13.15 10*3/uL 1.88-7.09 H (test code = 0136883886) IMM GRAN x10^3 (test 0.10 10*3/uL 0.00-0.06 H code = 3893216927) LYMPH x10^3 (test 0.89 10*3/uL 1.32-3.29 L code = 731-0) MONO x10^3 (test code 1.01 10*3/uL 0.33-0.92 H = 742-7) EOS x10^3 (test code 0.14 10*3/uL 0.03-0.39 = 711-2) BASO x10^3 (test code 0.06 10*3/uL 0.01-0.07 = 704-7) Lab Interpretation Abnormal (test code = 64469-5) [facility] CenterPOCT [id number] 00:10:00 Test Item Value Reference Range Interpretation Comments POCT PREG (test code = 1605) negative On board controls acceptable with present C Line (test code = 3574) POCT PREG LOT # (test code = 3575) [id number] POCT PREG TEST DATE (test 04/17/2022 code = 3576) Lab Interpretation (test code = Normal 84242-3) [facility]
[2022-06-05 11:48] LABS: Absolute Lymphocytes (CBC) 1.6 K/uL (0.7-4.9); Hematocrit 41.2 % (36.0-45.0); Lymphocytes % 22.3 % (15.3-44.8); MCV 66.1 fL (80-100); RBC Red Blood Cell Count 6.24 M/uL (3.86-4.86)
--- NOTE | 2022-06-05 12:02 | RAD REPORT ---
EXAM DESCRIPTION: RAD - Chest Single View - 06/05/2022 11:53 am CLINICAL HISTORY: CHEST PAIN COMPARISON: November 2020 portable chest TECHNIQUE: AP portable chest image was obtained 06/05/2022 11:53 am . FINDINGS: Lung volumes are slightly low. No peripheral mass or consolidation. Under penetrated techn ique and large body habitus accentuate all chest findings. Trachea is midline. No hilar mass or lymphadenopathy seen. Cardiomegaly is present. Upper lobe vascul ature within normal limits. No measurable pleural effusion and no pneumothorax. No acute bony abnorma lity seen. No acute aortic findings suspected. IMPRESSION: No acute cardiopulmonary process. Cardiomegaly without acute failure or volume overload findings.
[2022-06-05 12:04] LABS: Potassium 3.5 mmol/L (3.5-5.1)
[2022-06-05 12:08] LABS: Troponin High Sensitivity 508.6 pg/mL (<58.9)
[2022-06-05 13:10] LABS: Protime INR 1.31
[2022-06-05] MEDS ORDERED: HEPARIN 5000 UNIT/ML 1 ML VIAL ONE (13:14)
[2022-06-05] MEDS ORDERED: ONDANSETRON 4 MG/2 ML VIAL ONE ×3 (13:15→17:33)
[2022-06-05] MEDS ORDERED: MORPHINE 4 MG/ML SYR ONE ×2 (13:15→16:04)
[2022-06-05] MEDS ORDERED: HEPARIN/D5W 25,000 UNIT/500 ML BAG IV ONE (13:15)
[2022-06-05] MEDS ORDERED: METOPROLOL TARTRATE 5 MG/5 ML INJ IV ONE (13:15)
[2022-06-05] MEDS ORDERED: ASPIRIN 81 MG CHEWABLE TABLET ONE (13:16)
[2022-06-05 13:21] LABS: Albumin 3.4 g/dL (3.4-5.0); Bilirubin Direct 0.3 mg/dL (0-0.2); Bilirubin Total 1.1 mg/dL (0.2-1.0); Magnesium 2.2 mg/dL (1.8-2.4); Protein, Total 7.3 g/dL (6.4-8.2)
[2022-06-05 13:25] LABS: SARS-CoV-2 Antigen Rapid Res Negative (Negative)
--- NOTE | 2022-06-05 14:12 | ER ---
Nurse's Notes [facility] Name: Savana Potter Age: 36 yrs Sex: Female : 1985 Arrival Date: 06/05/2022 Time: 11:07 Bed 18 Private MD: Diagnosis: NSTEMI Presentation: 06/05 11:18 Chief complaint: Patient states: Chest pain began yesterday around 5 pm. Intermittent ld1 left sided chest pain - hurts when I take a deep breath. Coronavirus screen: At this time, the client does not indicate any symptoms associated with coronavirus-19. Ebola Screen: No symptoms or risks identified at this time. Initial Sepsis Screen: Does the patient meet any 2 criteria? No. Patient's initial sepsis screen is negative. Does the patient have a suspected source of infection? No. Patient's initial sepsis screen is negative. Risk Assessment: Do you want to hurt yourself or someone else? Patient reports no desire to harm self or others. Onset of symptoms was June 05, 2022. 11:18 Method Of Arrival: Ambulatory ld1 11:18 Acuity: ADEOLA 3 ld1 Triage Assessment: 11:18 General: Appears in no apparent distress. comfortable, Behavior is calm, cooperative, ld1 appropriate for age. Pain: Complains of pain in anterior aspect of left upper chest and left breast Pain does not radiate. Pain currently is 0 out of 10 on a pain scale. at worst was 10 out of 10 on a pain scale. Quality of pain is described as sharp, shooting, throbbing, Pain began 1 day ago. Is intermittent. EENT: No signs and/or symptoms were reported regarding the EENT system. Neuro: Level of Consciousness is awake, alert, obeys commands, Oriented to person, place, time, situation, Appropriate for age. Cardiovascular: Capillary refill < 3 seconds Patient's skin is warm and dry. Cardiovascular: Rhythm is sinus tachycardia. Respiratory: Airway is patent Respiratory effort is even, unlabored. GI:. GI: Abdomen is round non-distended. : No signs and/or symptoms were reported regarding the genitourinary system. Derm: No signs and/or symptoms reported regarding the dermatologic system. Musculoskeletal: Reports pain in chest. QUALITY IMPROVEMENT COORDINATOR: 11:18 LMP 05/18/2022 ld1 Historical: - Allergies: 11:18 No Known Allergies; ld1 - PMHx: 11:18 CHF; Systolic HF; TOA; ld1 - PSHx: 11:18 section; Cholecystectomy; ld1 - Immunization history:: Adult Immunizations up to date, Client reports having NOT received the Covid vaccine. - Social history:: Smoking status: Patient denies any tobacco usage or history of. Patient/guardian denies using alcohol, street drugs. Screenin:28 Abuse screen: Denies threats or abuse. Denies injuries from another. Nutritional ph screening: No deficits noted. Tuberculosis screening: No symptoms or risk factors identified. Fall Risk None identified. Assessment: 12:30 General: Appears in no apparent distress. uncomfortable, Behavior is calm, cooperative, ph appropriate for age. Pain: Complains of pain in anterior aspect of left upper chest Pain does not radiate. Pain currently is 8 out of 10 on a pain scale. Quality of pain is described as sharp. Neuro: Level of Consciousness is awake, alert, obeys commands, Oriented to person, place, time, situation. Cardiovascular: Capillary refill < 3 seconds in bilateral fingers Patient's skin is warm and dry. Rhythm is sinus rhythm Chest pain quality is sharp, is located in left anterior chest wall. Respiratory: Airway is patent Respiratory effort is even, unlabored, Respiratory pattern is regular, symmetrical. GI: No signs and/or symptoms were reported involving the gastrointestinal system. Derm: Skin is intact, is healthy with good turgor, Skin is pink, warm \\T\\ dry. Musculoskeletal: Circulation, motion, and sensation intact. Range of motion: intact in all extremities, Swelling absent. 14:00 Reassessment: Patient appears in no apparent distress at this time. Patient and/or ph family updated on plan of care and expected duration. Pain level reassessed. Patient is alert, oriented x 3, equal unlabored respirations, skin warm/dry/pink. 15:20 Reassessment: Patient appears in no apparent distress at this time. Patient and/or ph family updated on plan of care and expected duration. Pain level reassessed. Patient is alert, oriented x 3, equal unlabored respirations, skin warm/dry/pink. Dr Wilkins at bedside to speak w/ pt, requested that a repeat troponin and d-dimer be ordered. 16:10 Reassessment: Patient and/or family updated on plan of care and expected duration. Pain ph level reassessed. Patient is alert, oriented x 3, equal unlabored respirations, skin warm/dry/pink. Pt appears uncomfortable, c/o pain ,states, " This is different though. It's more in my back this time." Provider notified and morphine ordered, repeat EKG obtained. 17:01 Reassessment: Patient appears in no apparent distress at this time. Patient and/or ph family updated on plan of care and expected duration. Pain level reassessed. Patient is alert, oriented x 3, equal unlabored respirations, skin warm/dry/pink. Pt taken to CT via stretcher. 18:48 Reassessment: Patient appears in no apparent distress at this time. Patient and/or ph family updated on plan of care and expected duration. Pain level reassessed. Patient is alert, oriented x 3, equal unlabored respirations, skin warm/dry/pink. Vital Signs: 11:18 BP 134 / 99; Pulse 108; Resp 20; Temp 97.6(TE); Pulse Ox 97% on R/A; Weight 90.72 kg; ld1 Height 5 ft. 1 in. (154.94 cm); Pain 0/10; 13:25 BP 131 / 101; Pulse 102; Resp 18; Pulse Ox 99% on R/A; ph 13:43 BP 123 / 88; Pulse 77; Resp 18; Pulse Ox 98% on R/A; ph 14:00 BP 96 / 67; Pulse 87; Resp 18; Pulse Ox 98% on R/A; ph 15:00 BP 106 / 67; Pulse 85; Resp 16; Pulse Ox 99% on R/A; ph 16:00 BP 103 / 74; Pulse 85; Resp 18; Pulse Ox 98% on R/A; ph 17:00 BP 106 / 77; Pulse 87; Resp 16; Pulse Ox 100% on R/A; ph 11:18 Body Mass Index 37.79 (90.72 kg, 154.94 cm) ld1 Vitals: 13:25 Cardiac Rhythm Assessment Sinus tach. ph ED Course: 11:07 Patient arrived in ED. am2 11:18 Arm band placed on right wrist. ld1 11:20 Triage completed. ld1 11:33 Inserted saline lock: 20 gauge in right antecubital area, using aseptic technique. ld1 Blood collected. 11:35 Gavin Quinn NP is PHCP. pm1 11:35 Dixon Martinez MD is Attending Physician. pm1 11:55 XRAY Chest (1 view) In Process Unspecified. EDMS 13:09 Silvia Byrd, RN is Primary Nurse. ph 14:09 Get Trevino is Hospitalizing Provider. pm1 14:28 Patient has correct armband on for positive identification. Placed in gown. Bed in low ph position. Call light in reach. Side rails up X 1. Client placed on continuous cardiac and pulse oximetry monitoring. NIBP monitoring applied. Door closed. Noise minimized. Lights dimmed. 14:28 Oxygen administration via nasal cannula \\T\\ 2L/min Response to oxygen therapy: symptoms ph improved. 18:52 No provider procedures requiring assistance completed. Patient admitted, IV remains in ph place. 20:44 Ptt, Activated Sent. kd3 Administered Medications: 13:30 Drug: Zofran (Ondansetron) 4 mg Route: IVP; Site: right antecubital; ph 19:30 Follow up: Response: No adverse reaction ph 13:32 Drug: Lopressor (metoprolol) 5 mg Route: IVP; Site: right antecubital; ph 19:30 Follow up: Response: No adverse reaction ph 13:33 Drug: morphine 4 mg Route: IVP; Infused Over: 4 mins; Site: right antecubital; ph 19:30 Follow up: Response: No adverse reaction ph 13:37 Drug: Aspirin Chewable Tablet 324 mg Route: PO; ph 19:29 Follow up: Response: No adverse reaction ph 13:50 Drug: Heparin (GA-Bolus No thrombolytic) - HEParin 60 units/kg {Co-Signature: db ph (Merna Meredith RN).} Route: IVP; Site: right antecubital; 19:30 Follow up: Response: No adverse reaction ph 13:59 Drug: Heparin (GA Drip) 12 units/kg/hr - (HEParin 53077 units, D5W 500 ml) ph {Co-Signature: db (Merna Meredith RN).} Route: IV; Rate: calculated rate; Site: right antecubital; 19:30 Follow up: IV Status: Infusion continued upon admission ph 16:15 Drug: morphine 4 mg Route: IVP; Infused Over: 4 mins; Site: right antecubital; ph 18:48 Follow up: Response: No adverse reaction ph Medication: 14:28 VIS not applicable for this client. ph Outcome: 14:11 Decision to Hospitalize by Provider. pm1 20:48 Admitted to Med/surg accompanied by tech. kd3 20:48 Condition: stable 20:48 Condition: stable 20:48 Discharge instructions given to patient, family, Instructed on follow up and referral plans. the need for admit, Demonstrated understanding of instructions, follow-up care. 20:49 Patient left the ED. kd3 Signatures: Dispatcher [employer] EDNH Silvia Byrd, ZOYA RN Gavin Quinn NP CHAIR CAR DRIVER pm1 Anne Phan am2 Carrie Dacosta RN RN ld1 Almaz Aguirre RN RN kd3 Merna Meredith RN db
--- NOTE | 2022-06-05 14:12 | EDPHYS ---
Physician Documentation [facility] Name: Savana Potter Age: 36 yrs Sex: Female : 1985 Arrival Date: 06/05/2022 Time: 11:07 Bed 18 Private MD: SERA Physician Dixon Martinez HPI: 06/05 12:09 This 36 yrs old Female presents to ER via Ambulatory with complaints of Chest Pain - pm1 left side onset yesterday. 12:09 The patient or guardian reports chest pain that is located primarily in the anterior pm1 aspect of left upper chest and left breast. The pain does not radiate. Associated signs and symptoms: Pertinent positives: shortness of breath, Pertinent negatives: cough, dizziness, nausea, palpitations, syncope, vomiting. The chest pain is described as a pressure, sharp. Duration: The patient or guardian reports a single episode, that is still ongoing. Modifying factors: the symptoms are aggravated by deep breath, exertion, palpation of area. Severity of pain: in the emergency department the pain is unchanged. The patient has not experienced similar symptoms in the past. The patient has not recently seen a physician. 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 Left sided chest pain that feels like pressure. Increased with deep breathing, palpation and exertion. Pain is sharp with deep breathing and palpation. Pain is not present if she stays still but increases to 8-10/10 with deep breathing and exertion. 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 - Social history:: Smoking status: Patient denies any tobacco usage or history of. Patient/guardian denies using alcohol, street drugs. ROS: 12:09 Constitutional: Negative for fever, chills, and weight loss. pm1 12:09 Abdomen/GI: Negative for abdominal pain, nausea, vomiting, diarrhea, and constipation, Back: Negative for injury and pain, MS/Extremity: Negative for injury and deformity, Skin: Negative for injury, rash, and discoloration, Neuro: Negative for headache, weakness, numbness, tingling, and seizure. 12:09 Cardiovascular: Positive for chest pain, Negative for edema, palpitations. 12:09 Respiratory: Positive for shortness of breath, Negative for cough. 12:09 All other systems are negative. Exam: 12:09 Constitutional: This is a well developed, well nourished patient who is awake, alert, pm1 and in no acute distress. Head/Face: Normocephalic, atraumatic. 12:09 Back: No spinal tenderness. No costovertebral tenderness. Full range of motion. 12:09 Skin: Warm, dry with normal turgor. Normal color with no rashes, no lesions, and no evidence of cellulitis. MS/ Extremity: Pulses equal, no cyanosis. Neurovascular intact. Full, normal range of motion. 12:09 Chest/axilla: Inspection: normal, Palpation: tenderness, that is moderate, of the anterior aspect of left upper chest and left breast. 12:09 Cardiovascular: Rate: tachycardic, actual rate is 103 bpm, Rhythm: regular, Pulses: no pulse deficits are appreciated, Heart sounds: normal, normal S1and S2. 12:09 Respiratory: Exam negative for acute changes, respiratory distress, shortness of breath, Breath sounds: are clear throughout. 12:09 Abdomen/GI: Inspection: obese Palpation: abdomen is soft and non-tender, in all quadrants. 12:09 Neuro: Exam negative for acute changes, Orientation: is normal, Mentation: is normal, Motor: is normal, moves all fours. Vital Signs: 11:18 BP 134 / 99; Pulse 108; Resp 20; Temp 97.6(TE); Pulse Ox 97% on R/A; Weight 90.72 kg; ld1 Height 5 ft. 1 in. (154.94 cm); Pain 0/10; 13:25 BP 131 / 101; Pulse 102; Resp 18; Pulse Ox 99% on R/A; ph 13:43 BP 123 / 88; Pulse 77; Resp 18; Pulse Ox 98% on R/A; ph 14:00 BP 96 / 67; Pulse 87; Resp 18; Pulse Ox 98% on R/A; ph 15:00 BP 106 / 67; Pulse 85; Resp 16; Pulse Ox 99% on R/A; ph 16:00 BP 103 / 74; Pulse 85; Resp 18; Pulse Ox 98% on R/A; ph 17:00 BP 106 / 77; Pulse 87; Resp 16; Pulse Ox 100% on R/A; ph 11:18 Body Mass Index 37.79 (90.72 kg, 154.94 cm) ld1 MDM: 11:35 Patient medically screened. pm1 13:08 Data reviewed: vital signs. Data interpreted: Pulse oximetry: on room air is 97 %. pm1 Interpretation: normal. Counseling: I had a detailed discussion with the patient and/or guardian regarding: the historical points, exam findings, and any diagnostic results supporting the discharge/admit diagnosis, lab results, radiology results, the need for further work-up and treatment in the hospital. 06/05 11:17 Order name: Basic Metabolic Panel; Complete Time: 12:09 ld1 06/05 11:17 Order name: CBC with Diff; Complete Time: 15:04 ld1 06/05 11:17 Order name: Troponin HS; Complete Time: 12:09 ld1 06/05 11:37 Order name: UDS; Complete Time: 19:05 ld1 06/05 12:12 Order name: LFT's; Complete Time: 13:29 pm1 06/05 12:12 Order name: Magnesium; Complete Time: 13:29 pm1 06/05 12:12 Order name: NT PRO-BNP; Complete Time: 13:29 pm1 06/05 12:12 Order name: PT-INR; Complete Time: 13:41 pm1 06/05 12:31 Order name: SARS RAPID; Complete Time: 13:29 pm1 06/05 13:36 Order name: Ptt, Activated; Complete Time: 14:24 ph 06/05 14:54 Order name: CBC Smear Scan; Complete Time: 15:04 EDMS 06/05 15:03 Order name: Troponin High Sensitivity; Complete Time: 16:03 ph 06/05 15:03 Order name: D-Dimer; Complete Time: 16:10 ph 06/05 16:59 Order name: Protime (+INR); Complete Time: 17:08 EDMS 06/05 11:17 Order name: XRAY Chest (1 view); Complete Time: 12:07 ld1 06/05 16:35 Order name: CT Chest For PE Angio ph 06/05 17:17 Order name: CT; Complete Time: 17:39 EDMS 06/05 18:04 Order name: Urine Dipstick-Ancillary; Complete Time: 18:31 EDMS 06/05 18:05 Order name: Urine --Ancillary (enter results) bd 06/05 18:12 Order name: T4 Free; Complete Time: 18:31 EDMS 06/05 18:12 Order name: Magnesium; Complete Time: 18:31 EDMS 06/05 18:12 Order name: Thyroid Stimulating Hormone; Complete Time: 18:31 EDMS 06/05 19:32 Order name: Ptt, Activated ph 06/05 11:17 Order name: EKG; Complete Time: 11:18 ld1 06/05 11:17 Order name: Cardiac monitoring; Complete Time: 19:18 ld1 06/05 11:17 Order name: EKG - Nurse/Tech; Complete Time: 11:32 ld1 06/05 11:17 Order name: IV Saline Lock; Complete Time: 11:32 ld1 06/05 11:17 Order name: Labs collected and sent; Complete Time: 11:32 ld1 06/05 11:17 Order name: O2 Per Protocol; Complete Time: 11:32 ld1 06/05 11:17 Order name: O2 Sat Monitoring; Complete Time: 11:33 ld1 06/05 15:39 Order name: CONS Physician Consult EDMS EC:36 Rate is 110 beats/min. Rhythm is regular, Sinus tachycardia with Right bundle branch pm1 block, left anterior fascicular block. QRS interval is normal. No Q waves. T waves are Normal. No ST changes noted. Clinical impression: Sinus tachycardia, biatrial enlargement, incomplete right bundle branch block, left anterior fascicular block, cannot rule out anterior infarct, age undetermined, abnormal EKG. Administered Medications: 13:30 Drug: Zofran (Ondansetron) 4 mg Route: IVP; Site: right antecubital; ph 19:30 Follow up: Response: No adverse reaction ph 13:32 Drug: Lopressor (metoprolol) 5 mg Route: IVP; Site: right antecubital; ph 19:30 Follow up: Response: No adverse reaction ph 13:33 Drug: morphine 4 mg Route: IVP; Infused Over: 4 mins; Site: right antecubital; ph 19:30 Follow up: Response: No adverse reaction ph 13:37 Drug: Aspirin Chewable Tablet 324 mg Route: PO; ph 19:29 Follow up: Response: No adverse reaction ph 13:50 Drug: Heparin (CO-Bolus No thrombolytic) - HEParin 60 units/kg {Co-Signature: db ph (Merna Meredith RN).} Route: IVP; Site: right antecubital; 19:30 Follow up: Response: No adverse reaction ph 13:59 Drug: Heparin (CO Drip) 12 units/kg/hr - (HEParin 25192 units, D5W 500 ml) ph {Co-Signature: db (Merna Meredith RN).} Route: IV; Rate: calculated rate; Site: right antecubital; 19:30 Follow up: IV Status: Infusion continued upon admission ph 16:15 Drug: morphine 4 mg Route: IVP; Infused Over: 4 mins; Site: right antecubital; ph 18:48 Follow up: Response: No adverse reaction ph Disposition Summary: 06/05/22 14:11 Hospitalization Ordered Hospitalization Status: Inpatient Admission pm1 Provider: Get Trevino pm1 [facility] pm1 Condition: Fair pm1 Problem: new pm1 Symptoms: have improved pm1 Bed/Room Type: Standard pm1 Room Assignment: 424(06/05/22 19:52) Diagnosis - NSTEMI pm1 Forms: - Medication Reconciliation Form pm1 - SBAR form pm1 Signatures: Dispatcher [employer] Silvia Manzanares RN RN ph Garcia, Cindy, RN RN Gavin Quinn, STEPHANIE DIRECTOR SEARCH MARKETING STRATEGIES pm1 Carrie Dacosta RN RN 1 Merna bobo Corrections: (The following items were deleted from the chart) : 14:11 pm1 cg
[2022-06-05 14:54] LABS: White Blood Cell Scan OK (OK)
[2022-06-05 14:55] LABS: Anisocytosis 1+; Blood Morphology Comment NOTED (NOT SEEN); Hypochromasia 1+; Platelet Estimate ADEQ; Poikilocytosis 1+; Polychromasia SLIGHT
[2022-06-05] MEDS ORDERED: ACETAMINOPHEN 325 MG TABLET PO PRN (15:40)
[2022-06-05] MEDS ORDERED: BENZONATATE 100 MG CAP PO PRN (15:42)
[2022-06-05] MEDS ORDERED: IPRATROPIUM BROM 0.5MG/2.5ML NEB PRN (15:46)
[2022-06-05] MEDS ORDERED: ONDANSETRON 4 MG/2 ML VIAL IV PRN (15:46)
[2022-06-05] MEDS ORDERED: ALBUTEROL 2.5 MG/3 ML NEB SOL NEB PRN ×2 (15:46→20:26)
--- NOTE | 2022-06-05 15:52 | P.HP ---
Certification for Inpatient Patient admitted to: Inpatient With expected LOS: >2 Midnights Patient will require the following post-hospital care: None Practitioner: I am a practitioner with admitting privileges, knowledge of patient current condition, hospital course, and medical plan of care. Services: Services provided to patient in accordance with Admission requirements found in Title 42 Section 412.3 of the Code of Federal Regulations Patient History Date of Service: 06/05/22 Reason for admission: Chest pain. History of Present Illness: Patient is a 31-year-old female with a past medical history significant for hypertension, obesity, CHF who presents with complaint of chest pain located in the left chest wall onset yesterday. Patient rated pain as 7/10 in severity and described pain as sharp\stabbing in quality. Patient reported associated signs and symptoms of diaphoresis, headache and shortness of breath. Patient denies any other signs or symptoms. Symptoms are aggravated by exertion and relieved by nothing. Patient decided to present to the hospital due to worsening symptoms. Allergies No Known Allergies Allergy (Unverified 02/20/12 15:27) Home Medications: Ondansetron [Zofran (Odt)*] 4 mg PO Q6H PRN #30 tab 04/18/13 Aspirin [Aspirin EC 81 MG] 81 mg PO DAILY #30 tablet. 09/30/20 Benzonatate [Tessalon Perle*] 200 mg PO TID PRN #30 cap 09/30/20 Furosemide [Lasix] 40 mg PO DAILY #30 tablet 09/30/20 - Past Medical/Surgical History Diabetic: No -: HTN -: CHF -: Obesity -: Psychosocial/ Personal History: NO TOB,NO ETOH,NO DRUG USE - Family History Family History: Reviewed- Non-Contributory - Social History Smoking Status: Never smoker Alcohol use: No CD- Drugs: No Caffeine use: Yes Place of Residence: Home Review of Systems General: Sweats Eyes: Unremarkable ENT: Unremarkable Respiratory: Shortness of Breath, SOB with Excertion Cardiovascular: Chest Pain Gastrointestinal: Unremarkable Genitourinary: Unremarkable Musculoskeletal: Unremarkable Integumentary: Unremarkable Neurological: Other (Headache ) Lymphatics: Unremarkable Physical Examination - Physical Exam General: Alert, In no apparent distress, Oriented x3, Mild distress HEENT: Atraumatic, PERRLA, Mucous membr. moist/pink, EOMI, Sclerae nonicteric Neck: Supple, 2+ carotid pulse no bruit, No LAD, Without JVD or thyroid abnormality Respiratory: Diminished Cardiovascular: Normal pulses, Regular rate/rhythm, Normal S1 S2 Capillary refill: <2 Seconds Gastrointestinal: Normal bowel sounds, Soft and benign Musculoskeletal: No swelling, No contractures, Tenderness Integumentary: No rashes, No breakdown, No significant lesion, No tenderness/swelling Neurological: Normal speech, Normal tone, Normal affect Lymphatics: No axilla or inguinal lymphadenopathy - Studies Laboratory Data (last 24 hrs) 06/05/22 12:40: APTT 28.5 06/05/22 12:40: Magnesium 2.2, Total Bilirubin 1.1 H, AST 12 L, ALT 23, Alkaline Phosphatase 97 06/05/22 12:12: PT 14.4 H, INR 1.31 06/05/22 11:32: WBC 7.20, Hgb 12.6, Hct 41.2, Plt Count 287 06/05/22 11:32: Sodium 141, Potassium 3.5, BUN 15, Creatinine 0.78, Glucose 69 L Assessment and Plan - Plan --Chest pain. To rule out ACS. Will trend troponins level--currently elevated. Patient started on heparin drip in the ER. Cardiology consulted. Echocardiogram pending. Telemetry to monitor for any significant arrhythmia. Will await further recommendation from broke man. --Elevated D-dimer. CTA PE protocol negative for PE. Continue supportive care. --Pneumonia. Noted on CT imaging. Patient placed on antibiotics, neb treatment with albuterol\Atrovent and steroids. Continue O2 therapy. --Acute on chronic systolic CHF exacerbation. Continue diuresis with Lasix. Strict I/O and daily weights. Further management per broke man. --Class II obesity. Likely secondary to excess calories intake and sedentary lifestyle. Patient counseled on weight reduction, diet and exercise therapy. --Headache. Tylenol as needed. --Hypertension. Stable. We will manage BP with labetalol as needed. --Polysubstance abuse. Noted on UDS. Patient counseled on drug cessation. --DVT prophylaxis with heparin drip. Discharge Plan: Home Plan to discharge in: Greater than 2 days - Advance Directives Does patient have a Living Will: No Does patient have a Durable POA for Healthcare: No - Code Status/Comfort Care Code Status Assessed: Yes Code Status: Full Code Physician Review: Patient Assessed, Agree with Above Assessment and Plan Critical Care: No
--- NOTE | 2022-06-05 16:32 | EKG ---
Test Date: 2022-06-05 Test Time: 11:29:07 Produce Field Merchandiser: GRACIE MEASUREMENT RESULTS: Intervals: Rate: 110 VT: 134 QRSD: 110 QT: 392 QTc: 530 [place]: P: 60 VT: 134 QRS: -62 T: 3 INTERPRETIVE STATEMENTS: Sinus tachycardia Biatrial enlargement Incomplete right bundle branch block Left anterior fascicular block Cannot rule out Anterior infarct, age undetermined Abnormal ECG Compared to ECG 11/29/2020 01:44:01 Left anterior fascicular block now present Indeterminate axis no longer present Myocardial infarct finding still present Electronically Signed On 06-05-22 16:32:35 CDT by Flex Rueda
[2022-06-05 16:59] LABS: Protime INR 1.44
--- NOTE | 2022-06-05 17:16 | RAD REPORT ---
EXAM DESCRIPTION: CT - Chest For Pe Angio - 06/05/2022 5:04 pm CLINICAL HISTORY: Chest pain. Pulmonary embolism (PE) suspected, positive D-dimer COMPARISON: Chest For Pe Angio dated 09/29/2020 TECHNIQUE: CT angiogram of the pulmonary arteries was performed with MIP. All CT scans are performed using dose optimization technique as appropriate and may include automated exposure control or mA/KV adjustment according to patient size. FINDINGS: No evidence of pulmonary thromboembolism. Pulmonary arterial tree appears somewhat promine nt in size. Aorta is not well opacified for assessment. Cardiac size is enlarged. 4 cm patchy opacity in the right middle lobe is noted. No significant pericardial or pleural fluid. No concerning bony finding. IMPRESSION: No evidence of pulmonary thromboembolism. 4 cm area infiltrate/pneumonia suspected in the right middle lobe. Cardiomegaly. Pulmonary arterial hypertension is a possibility.
[2022-06-05] MEDS ORDERED: FAMOTIDINE 20 MG/2 ML VIAL IV ONE (17:33)
[2022-06-05] MEDS ORDERED: HYDROMORPHONE HCL 1 MG/ML INJ ONE (17:33)
[2022-06-05] MEDS ORDERED: NA CHLORIDE 0.9% 1,000 ML ONE (17:33)
[2022-06-05 18:04] LABS: Urine Blood Negative (Negative); Urine Glucose Negative (Negative); Urine Protein 2+ (Negative); Urine Specific Gravity 1.015 (1.005-1.030); Urine pH 5.5 (5.0-7.0)
[2022-06-05 18:11] LABS: Magnesium 2.3 mg/dL (1.8-2.4); Thyroid Stimulating Hormone 3.82 uIU/mL (0.360-3.740)
--- NOTE | 2022-06-05 18:13 | CON ---
Date of Consultation: 06/05/2022 Reason For Consultation: Chest pain. History Of Present Illness: This is a -aluh-nrx female, history of hypertension, presented to the emergency room with chest pain, severe, retrosternal, that goes to the back and the pain main ly with deep breath and that makes her short of breath and she cannot take a full breath due to the s ignificant pain that she has. Denies having any cough. The patient does not have any history of DVT or PE in the past and does not take any hormones. In between the severe sharp pain, she will have s ome chest pressure and no radiation, but when I saw her in the emergency room, she appeared to be cla mmy and diaphoretic, but she claimed when she gets pain medicine like morphine, she gets clammy that way. Past Medical History: Hypertension. Medications: Refer to reconciliation sheet for detailed list. Allergies: NO KNOWN DRUG ALLERGIES. Family History: No premature coronary artery disease or cancer. Social History: Does not smoke or drink. Does not use any drugs. Review of Systems: All systems reviewed and they were negative except for what mentioned in HPI. Physical Examination: Vital signs: Reviewed. Head and Neck: Pupils are equal, reactive to light. Intact eye movements. No JVD. No cervical lym phadenopathy. Neck is supple. Thyroid is not enlarged. Lungs: Clear to auscultation bilaterally. No rhonchi, wheezing, or crackles. No accessory muscle u se. Heart: Regular rate and rhythm. No extra sounds. Abdomen: Soft, nontender. Bowel sounds positive. No organomegaly. No masses or hernia. No rigidi ty or rebound. Extremities: No edema, clubbing, or cyanosis. Intact pulses. Skin: No rash. Neurologic: Alert, awake, oriented x3. No acute focal deficits appreciated. Investigations: Troponins; first set was 508, second was 482. EKG without acute specific abnormalit ies. BUN 15, creatinine 0.75. Hemoglobin is 12.6. Assessment And Recommendations: 1.Chest pain. It is pleuritic in nature. Troponin is borderline elevated and it is trending down. No acute EKG abnormalities. Check D-dimer on her and was elevated at 1722. Please obtain CTA PE pr otocol, rule out pulmonary embolism and I agree with anticoagulation with heparin for now and baby as pirin. Further recommendation will follow after the CT angiogram. 2.Shortness of breath. The patient is on Lasix at home and her NT-proBNP is elevated suggestive of chronic congestive heart failure with acute exacerbation. Agree with Lasix 40 mg IV q.12 hours. Mon itor BUN, creatinine, electrolytes, and obtain an echocardiogram. Thank you for the consult. /FRANCESCA Voice ID: [id number] Report ID: [id number]
[2022-06-05 18:38] LABS: Barbiturates NEGATIVE (NEGATIVE); Benzodiazepines NEGATIVE (NEGATIVE); Cocaine NEGATIVE (NEGATIVE); METHAMPHETAM POSITIVE (NEGATIVE); Methadone NEGATIVE (NEGATIVE); Opiates POSITIVE (NEGATIVE); Phencyclidine NEGATIVE (NEGATIVE); THC Cannibis POSITIVE (NEGATIVE)
[2022-06-05] MEDS ORDERED: ALBUTEROL 2.5 MG/3 ML NEB SOL NEB SCH (20:00)
[2022-06-05] MEDS: IPRATROPIUM BROM 0.5MG/2.5ML NEB SCH (20:00)
[2022-06-05] MEDS ORDERED: ALBUTEROL 2.5 MG/3 ML NEB SOL ONE (20:17)
[2022-06-05] MEDS ORDERED: IPRATROPIUM BROM 0.5MG/2.5ML ONE (20:17)
[2022-06-05] MEDS ORDERED: HYDROCODONE/APAP 10/325 TAB ONE (20:25)
[2022-06-05] MEDS: HYDROCODONE/APAP 10/325 TAB PO PRN (20:29)
[2022-06-05 21:46] VITALS: BMI 38.0
[2022-06-05] MEDS: CEFEPIME 1 GM in NA CHLORIDE 0.9% 100 ML IV SCH (22:07)
[2022-06-05] MEDS: FUROSEMIDE 40 MG/4 ML VIAL IV SCH (22:07)
[2022-06-05] MEDS: AZITHROMYCIN IV 500 MG in NA CHLORIDE 0.9% 250 ML IVPB SCH (22:08)
[2022-06-05 22:09] LABS: Urine Specific Gravity/Preg 1.015 (1.005-1.030)
[2022-06-06] MEDS: METHYLPREDNISOLONE 40 MG INJ IV SCH ×3 (00:54→16:41)
[2022-06-06] MEDS: IPRATROPIUM BROM 0.5MG/2.5ML NEB SCH ×4 (01:02→20:00)
[2022-06-06 06:46] LABS: Absolute Lymphocytes (CBC) 0.6 K/uL (0.7-4.9); Hematocrit 41.6 % (36.0-45.0); Lymphocytes % 7.3 % (15.3-44.8); MCV 67.2 fL (80-100)
[2022-06-06 07:08] LABS: Phosphorus 3.8 mg/dL (2.5-4.9); Potassium 3.9 mmol/L (3.5-5.1)
[2022-06-06] MEDS ORDERED: ASPIRIN 325 MG TAB PO SCH (09:00)
[2022-06-06] MEDS ORDERED: POTASSIUM CL SA 10 MEQ TAB PO ONE (09:00)
[2022-06-06] MEDS: FUROSEMIDE 40 MG/4 ML VIAL IV SCH ×2 (09:48→16:40)
[2022-06-06] MEDS: HYDROCODONE/APAP 10/325 TAB PO PRN ×2 (09:49→19:22)
[2022-06-06] MEDS: CEFEPIME 1 GM in NA CHLORIDE 0.9% 100 ML IV SCH ×2 (09:49→19:22)
[2022-06-06] MEDS: HEPARIN/D5W 25,000 UNIT/500 ML BAG IV SCH (13:48)
--- NOTE | 2022-06-06 17:33 | P.PN ---
Subjective Date of Service: 06/06/22 Chief Complaint: Chest pain. Patient states she feels better today. Noted to be hypoxic this morning and currently on 3 L oxygen by nasal cannula. She denies any chest pain. Physical Examination - Vital Signs Temperature: 97.1 F Blood Pressure: 130/82 Pulse: 98 Respirations: 14 Pulse Ox (%): 93 - Studies Laboratory Data (last 24 hrs) 06/05/22 15:15: Magnesium 2.3 Assessment And Plan - Current Problems (Diagnosis) (1) Acute on chronic systolic heart failure Current Visit: Yes Status: Acute (2) Elevated troponin Current Visit: Yes Status: Acute (3) Polysubstance abuse Current Visit: Yes Status: Acute (4) Morbid obesity Current Visit: Yes Status: Acute - Plan Physical Exam General: Alert, In no apparent distress. Neck: Supple, no JVD distention. Respiratory: Mild bibasilar Rales Cardiovascular: Normal pulses, Regular rate/rhythm, Normal S1 S2 Gastrointestinal: Normal bowel sounds, Soft and benign. Musculoskeletal: No swelling, No tenderness Integumentary: No rashes. Neurological: No focal motor deficit. Plan: Troponin trended flat. Patient seen by cardiology. I suspect elevated troponin is secondary to demand ischemia. CTA thorax is negative for pulm embolism. It demonstrated right middle lobe pneumonia. Continue IV Lasix. IV cefepime and azithromycin. Supplemental oxygen. Bronchodilators. Discontinue steroid Patient is on heparin drip. Will complete 48 hours of anticoagulation for NSTEMI.
[2022-06-06] MEDS: AZITHROMYCIN IV 500 MG in NA CHLORIDE 0.9% 250 ML IVPB SCH (18:21)
[2022-06-06] MEDS: SACUBITRIL/VALSARTAN 24/26 MG TAB PO SCH (19:22)
--- NOTE | 2022-06-06 23:27 | PN ---
Date of Progress Note: 06/06/2022 Subjective: Seen by bedside. She is doing better. No further chest pain. CT PE protocol was negat valente, but she has pneumonia. She still has pleuritic chest pain and that has improved. Review of Systems: She has pleuritic chest pain with mild shortness of breath. No nausea, vomiting, or diarrhea. No ab dominal pain. No dysuria, polyuria, or urinary urgency. No nausea, vomiting, or diarrhea. All othe r systems reviewed and are negative. Physical Examination: Vital Signs: Temperature is 97.1, pulse 98, breathing at 14, blood pressure 130/82, saturating 90% o n room air. General: A pleasant young female, obese, in no apparent distress. Head And Neck: Pupils are equal and reactive to light. Intact eye movements. No JVD. No cervical lymphadenopathy. Neck: Supple. Thyroid is not enlarged. Lungs: Clear to auscultation bilaterally. No rhonchi, wheezing, or crackles. No accessory muscle u se. Heart: Regular rate and rhythm. No extra sounds. Abdomen: Soft, nontender. Bowel sounds positive. No organomegaly. No masses or hernia. No rigidi ty or rebound. Extremities: No clubbing or cyanosis. Intact pulses. Skin: No rash. Neurologic: Alert, awake, and oriented x3. No acute focal deficits appreciated. Lymph Nodes: No cervical or axillary lymphadenopathy. Investigations: Troponins are trending down. BUN is 17, creatinine 0.78, and hemoglobin is 12.2. E cho: EF is 40% with mild global hypokinesis. CT PE protocol showed pneumonia. Assessment And Recommendations: 1.Elevated troponin with mildly depressed ejection fraction. We will plan for coronary angiogram on her once the pneumonia is under control. 2.Pneumonia, on antibiotics. Continue current management. 3.Systolic heart failure. Ejection fraction is 40%. Continue Lasix and carefully monitor BUN, crea tinine, and electrolytes. SR/MODL Voice ID: [id number] Report ID: [id number]
[2022-06-07] MEDS: METHYLPREDNISOLONE 40 MG INJ IV SCH ×3 (00:08→17:00)
[2022-06-07] MEDS: HYDROCODONE/APAP 10/325 TAB PO PRN ×4 (00:30→23:56)
[2022-06-07] MEDS: IPRATROPIUM BROM 0.5MG/2.5ML NEB SCH ×4 (01:30→20:00)
[2022-06-07] MEDS: HEPARIN/D5W 25,000 UNIT/500 ML BAG IV SCH ×2 (03:56→20:14)
[2022-06-07 06:19] LABS: Potassium 3.6 mmol/L (3.5-5.1)
[2022-06-07 06:45] LABS: Absolute Lymphocytes (CBC) 1.2 K/uL (0.7-4.9); MCV 66.4 fL (80-100); MPV 8.7 fL (7.6-11.3); RBC Red Blood Cell Count 6.17 M/uL (3.86-4.86)
--- NOTE | 2022-06-07 07:07 | ECHO ---
HEIGHT: 5 ft 1 in WEIGHT: 223 lb 6.4 oz DATE OF STUDY: 06/06/[address]: Dudley Hartman 2-DIMENSIONAL: YES M.MODE: YES DOPPLER: YES COLOR FLOW: YES TDS: NO PORTABLE: YES DEFINITY: NO BUBBLE STUDY: NO DIAGNOSIS: CHEST PAIN CARDIAC HISTORY: CATHERIZATION: SURGERY: PROSTHETIC VALVE: PACEMAKER: MEASUREMENTS (cm) DIASTOLIC (NORMALS) SYSTOLIC (NORMALS) IVSd 1.2 (0.6-1.2) LA Diam 3.1 (1.9-4.0) LVEF 40% LVIDd 5.6 (3.5-5.7) LVIDs 4.5 (2.0-3.5) %FS 20% LVPWd 1.3 (0.6-1.2) Ao Diam 3.1 (2.0-3.7) 2 DIMENSIONAL ASSESSMENT: RIGHT ATRIUM: NORMAL LEFT ATRIUM: NORMAL RIGHT VENTRICLE: NORMAL LEFT VENTRICLE: MILDLY DILATED TRICUSPID VALVE: MITRAL VALVE: PULMONIC VALVE: AORTIC VALVE: PERICARDIAL EFFUSION: NONE AORTIC ROOT: NORMAL LEFT VENTRICULAR WALL MOTION: MILD GLOBAL HYPOKINESIS. DOPPLER/COLOR FLOW: SEE BELOW. COMMENTS: MILDLY DEPRESSED LEFT VENTRICULAR EJECTION FRACTION OF 40%. MILD GLOBAL HYPOKINESIS. DIASTOLIC DYSFUNCTION. MILD MITRAL, TRICUSPID, PULMONARY AND AORTIC REGURGITATION. TECHNOLOGIST: Camryn TAYLOR
[2022-06-07 07:35] LABS: Anisocytosis 1+; Blood Morphology Comment NOTED (NOT SEEN); Hypochromasia 2+; Ovalocytes 1+; Platelet Estimate ADEQ; Platelets, Giant 2+; White Blood Cell Scan OK (OK)
[2022-06-07] MEDS ORDERED: POTASSIUM CL SA 10 MEQ TAB PO ONE (09:00)
[2022-06-07] MEDS: SACUBITRIL/VALSARTAN 24/26 MG TAB PO SCH ×2 (09:20→21:00)
[2022-06-07] MEDS: FUROSEMIDE 40 MG/4 ML VIAL IV SCH ×2 (09:20→17:00)
[2022-06-07] MEDS: CEFEPIME 1 GM in NA CHLORIDE 0.9% 100 ML IV SCH (09:20)
[2022-06-07] MEDS: ASPIRIN EC 81 MG TAB PO SCH (09:21)
--- NOTE | 2022-06-07 17:32 | P.PN ---
Subjective Date of Service: 06/07/22 Chief Complaint: Chest pain. Patient states she feels better. She remain on 3 L O2 by PR. Physical Examination - Vital Signs Temperature: 97.5 F Blood Pressure: 127/67 Pulse: 85 Respirations: 14 Pulse Ox (%): 94 Assessment And Plan - Current Problems (Diagnosis) (1) Acute on chronic systolic heart failure Current Visit: Yes Status: Acute (2) Elevated troponin Current Visit: Yes Status: Acute (3) Polysubstance abuse Current Visit: Yes Status: Acute (4) Morbid obesity Current Visit: Yes Status: Acute - Plan Physical Exam General: Alert, In no apparent distress. Neck: Supple, no JVD distention. Respiratory: Mild bibasilar Rales Cardiovascular: Normal pulses, Regular rate/rhythm, Normal S1 S2 Gastrointestinal: Normal bowel sounds, Soft and benign. Musculoskeletal: No swelling, No tenderness Integumentary: No rashes. Neurological: No focal motor deficit. Plan: Troponin elevated but trended flat. Patient seen by cardiology-Dr. Rueda who recommend cardiac cath at some point. CTA thorax is negative for pulm embolism. It demonstrated right middle lobe pneumonia. Continue IV Lasix. Leukocytosis is trending up. I suspect leukocytosis is steroid induced. Continue antibiotics. Supplemental oxygen. Bronchodilators. Discontinue steroid Patient is on heparin drip. Will complete 48 hours of anticoagulation for NSTEMI. Physician Review: Patient Assessed, Agree with Above Assessment and Plan
--- NOTE | 2022-06-07 20:44 | PN ---
Date of Progress Note: 06/07/2022 Subjective: Seen at bedside. Her chest pain is improving. Shortness of breath is improving. Review of Systems: Has pleuritic chest pain. No nausea, vomiting, or diarrhea. No abdominal pain. No dysuria, polyuri a, or urinary urgency. No skin rash. All other systems reviewed and they were negative. Physical Examination: Vital Signs: Reviewed. Head And Neck: Pupils are equal and reactive to light. Intact eye movements. No JVD. No cervical lymphadenopathy. Neck: Supple. Thyroid is not enlarged. Lungs: Clear to auscultation bilaterally. No rhonchi, wheezing, or crackles. No accessory muscle u se. Heart: Regular rate and rhythm. No extra sounds. Abdomen: Soft, nontender. Bowel sounds positive. No organomegaly. No masses or hernia. No rigidi ty or rebound. Extremities: No clubbing or cyanosis. Intact pulses. Skin: No rash. Neuro: Alert, awake, oriented x3. No acute focal deficits appreciated. Investigations: BUN 15, creatinine 0.7. Hemoglobin is 12.1. Assessment And Recommendations: 1.Fyski-ef-bgxwrjf congestive heart failure exacerbation with systolic dysfunction. Continue Lasix one more day. The patient is improving. 2.Elevated troponin with low ejection fraction. Patient never had heart catheterization. She told me today that she had weak heart for sometime now, but she never had coronary angiogram. If the pako ent stays through the weekend, we will plan to do coronary angiogram early next week. Otherwise, this can be arranged as an outpatient. /FRANCESCA Voice ID: [id number] Report ID: [id number]
[2022-06-08] MEDS: IPRATROPIUM BROM 0.5MG/2.5ML NEB SCH ×2 (01:53→08:00)
[2022-06-08 04:41] LABS: Absolute Lymphocytes (CBC) 1.9 K/uL (0.7-4.9); Hematocrit 42.8 % (36.0-45.0); Lymphocytes % 9.4 % (15.3-44.8); MCV 66.1 fL (80-100); MPV 8.9 fL (7.6-11.3); RBC Red Blood Cell Count 6.48 M/uL (3.86-4.86)
[2022-06-08 04:50] LABS: Potassium 3.8 mmol/L (3.5-5.1)
[2022-06-08] MEDS: SACUBITRIL/VALSARTAN 24/26 MG TAB PO SCH (08:29)
[2022-06-08] MEDS: FUROSEMIDE 40 MG/4 ML VIAL IV SCH (08:29)
[2022-06-08] MEDS: ASPIRIN EC 81 MG TAB PO SCH (08:29)
[2022-06-08] MEDS ORDERED: POTASSIUM 25 MEQ EFFERV TAB PO ONE (09:00)
[2022-06-08] MEDS ORDERED: levoFLOXacin 750 MG TAB PO SCH (09:00)
[2022-06-08 12:06] VITALS: BP 110/72; TEMP 96.9
--- NOTE | 2022-06-08 13:00 | P.DS ---
Admission Date: 06/05/22 Discharge Date: 06/08/22 Disposition: ROUTINE DISCHARGE Discharge Condition: FAIR Reason for Admission: Chest pain. - Problems (1) Acute on chronic systolic heart failure Current Visit: Yes Status: Acute (2) Elevated troponin Current Visit: Yes Status: Acute (3) Polysubstance abuse Current Visit: Yes Status: Acute (4) Morbid obesity Current Visit: Yes Status: Acute Brief History of Present Illness: Patient is a 31-year-old female with a past medical history significant for hypertension, obesity, CHF who presents with complaint of chest pain located in the left chest wall. Patient rated pain as 7/10 in severity and described pain as sharp\stabbing in quality. Patient reported associated signs and symptoms of diaphoresis, headache and shortness of breath. BNP elevated, troponin elevated, CTA thorax negative for pulmonary embolism, did show increased pulmonary markings suggestive of pulmonary arterial hypertension, and right middle lobe pneumonia. Patient was hospitalized for further management. Hospital Course: Patient admitted to the medical floor and treated with antibiotics, IV Lasix. Troponin trended flat. She was seen in consultation by cardiology-Dr. Rueda who is planning cardiac catheterization as an outpatient. She was initially requiring oxygen which was later weaned off as her respiratory condition improved with treatment for the pneumonia and CHF. Echocardiogram demonstrated EF of 40%. Patient clinical condition has improved. She is ambulatory without oxygen. She is deemed stable for discharge. She is prescribed Levaquin to continue treatment for the pneumonia. Her home dose Lasix has been increased from 40 mg daily to 40 mg twice daily to continue treatment for CHF. She will follow with Dr. Garrido as an outpatient for arrangement for cardiac cath. Vital Signs/Physical Exam: Temp Pulse Resp BP Pulse Ox 96.9 F 86 16 110/72 95 06/08/22 12:00 06/08/22 12:00 06/08/22 12:00 06/08/22 12:00 06/08/22 12:00 General: Alert, In no apparent distress, Oriented x3 Neck: JVD not distended Respiratory: Clear to auscultation bilaterally, Normal air movement Cardiovascular: No edema, Regular rate/rhythm, Normal S1 S2 Gastrointestinal: Normal bowel sounds, Soft and benign, Non-distended, No tenderness Musculoskeletal: No swelling Integumentary: No rashes, No cyanosis Neurological: Normal strength at 5/5 x4 extr Laboratory Data at Discharge: WBC 20.00 K/uL (4.3-10.9) H 06/08/22 04:08 Hgb 12.9 g/dL (12.0-15.0) 06/08/22 04:08 Hct 42.8 % (36.0-45.0) 06/08/22 04:08 Plt Count 361 K/uL (152-406) D 06/08/22 04:08 PT 15.8 SECONDS (9.5-12.5) H 06/05/22 15:15 INR 1.44 06/05/22 15:15 APTT 61.2 SECONDS (24.3-36.9) H 06/08/22 04:08 Sodium 138 mmol/L (136-145) 06/08/22 04:08 Potassium 3.8 mmol/L (3.5-5.1) 06/08/22 04:08 BUN 17 mg/dL (7-18) 06/08/22 04:08 Creatinine 0.72 mg/dL (0.55-1.3) 06/08/22 04:08 Glucose 132 mg/dL (74-106) H 06/08/22 04:08 Phosphorus 3.8 mg/dL (2.5-4.9) 06/06/22 06:12 Magnesium 2.3 mg/dL (1.8-2.4) 06/05/22 15:15 Total Bilirubin 1.1 mg/dL (0.2-1.0) H 06/05/22 12:40 AST 12 U/L (15-37) L 06/05/22 12:40 ALT 23 U/L (12-78) 06/05/22 12:40 Alkaline Phosphatase 97 U/L (45-117) 06/05/22 12:40 Home Medications: Aspirin [Aspirin EC 81 MG] 81 mg PO DAILY #30 tablet. 09/30/20 Sacubitril/Valsartan [Entresto 24 mg-26 mg Tablet] 1 tab PO BID 06/06/22 Benzonatate [Tessalon Perle*] 200 mg PO TID PRN #30 cap 06/08/22 Fluticasone/Salmeterol [Advair Hfa 230-21 Mcg Inhaler] 12 gm IH BID #1 inh 06/08/22 Furosemide [Lasix] 40 mg PO BID #60 tablet 06/08/22 levoFLOXacin [Levaquin*] 750 mg PO DAILY #7 tab 06/08/22 New Medications: Fluticasone/Salmeterol [Advair Hfa 230-21 Mcg Inhaler] 12 gm IH BID #1 inh Furosemide [Lasix] 40 mg PO BID #60 tablet levoFLOXacin [Levaquin*] 750 mg PO DAILY #7 tab Benzonatate [Tessalon Perle*] 200 mg PO TID PRN #30 cap PRN Reason: Cough Diet: AHA Activity: Ad rylan Followup: NONE,NONE [Primary Care Provider] - Flex Rueda MD [ACTIVE - CAN ADMIT] - 1 Week Time spent managing pt's care (in minutes): 38
[2022-06-08 13:06] VITALS: O2SAT 86
--- NOTE | 2022-06-08 16:59 | EKG ---
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: PH MEASUREMENT RESULTS: Intervals: Rate: 80 WI: 162 QRSD: 114 QT: 434 QTc: 500 [place]: P: 16 WI: 162 QRS: -66 T: -21 INTERPRETIVE STATEMENTS: Normal sinus rhythm Possible Left atrial enlargement Right bundle branch block Left anterior fascicular block Bifascicular block Cannot rule out Anterior infarct, age undetermined Abnormal ECG Compared to ECG 06/05/2022 11:29:07 Right bundle-branch block now present Bifascicular block now present Sinus tachycardia no longer present Incomplete right bundle-branch block no longer present Myocardial infarct finding still present Electronically Signed On 06-08-22 16:55:05 CDT by Flex Rueda
== END 2022-06-08 13:41 | disposition home or self-care (01) | DRG 280 ==
LOC: ER 11:06 → ERHOLD 15:35 → 4TH 20:22
PROVIDERS: ADMIT Internal Medicine; ATTEND Internal Medicine
DX: I11.0 Hypertensive heart disease with heart failure (principal); I21.A1 Myocardial infarction type 2; I50.23 Acute on chronic systolic (congestive) heart failure; J18.9 Pneumonia, unspecified organism; Z68.41 Body mass index [BMI] 40.0-44.9, adult; I27.21 Secondary pulmonary arterial hypertension; E66.01 Morbid (severe) obesity due to excess calories; F19.10 Other psychoactive substance abuse, uncomplicated; R51.9 Headache, unspecified; R77.8 Other specified abnormalities of plasma proteins; R09.02 Hypoxemia; Z90.49 Acquired absence of other specified parts of digestive tract; Z79.82 Long term (current) use of aspirin; Z79.899 Other long term (current) drug therapy; Z28.310 Unvaccinated for COVID-19; Z20.822 Contact with and (suspected) exposure to COVID-19
CPT/HCPCS: 36415; 71045; 71275; 80048; 80076; 80307; 81003; 81025; 83735; 83880; 84100; 84439; 84443; 84484; 85025; 85379; 85610; 85730; 87811; 93005; 93306; 96365; 96366; 96375; 99285; J0456; J0692; J1170; J1644; J1940; J2405; J2920; J7030; J7050; Q9967

== ENCOUNTER 2024-02-13 08:07 | Inpatient (IN) | payer OTHER, SELFPAY ==
[2024-02-13] MEDS ORDERED: ONDANSETRON 4 MG/2 ML VIAL ONE (08:44)
[2024-02-13] MEDS ORDERED: MORPHINE 4 MG/ML SYR ONE (08:44)
[2024-02-13 08:54] LABS: PT Prothrombin Time 14.8 SECONDS (9.4-12.5); Protime INR 1.36
[2024-02-13 09:20] LABS: Albumin 3.5 g/dL (3.4-5.0); Albumin/Globulin Ratio 0.9 (1.1-1.8); Anion Gap 9.8 mEq/L (5.0-15.0); Bilirubin Direct 0.4 mg/dL (0-0.2); Bilirubin Total 1.4 mg/dL (0.2-1.0); Globulin 3.8 g/dL (2.3-3.5); Potassium 3.8 mEq/L (3.5-5.1); Protein, Total 7.3 g/dL (6.4-8.2)
[2024-02-13 09:22] LABS: Troponin High Sensitivity 2703.6 pg/mL (<58.9)
[2024-02-13 09:25] LABS: Absolute Basophils 0.1 K/uL (0-0.5); Absolute Eosinophils 0.2 K/uL (0-0.5); Absolute Lymphocytes (CBC) 1.8 K/uL (0.7-4.9); Absolute Monocytes 0.6 K/uL (0.1-1.3); Absolute Neutrophil 4.5 K/uL (1.8-8.0); Basophils % 1.3 % (0-1.3); Eosinophils % 3.4 % (0-4.4); Hematocrit 46.1 % (36.0-45.0); Hemoglobin 14.4 g/dL (12.0-15.0); Lymphocytes % 24.6 % (15.3-44.8); MCH 25.6 pg (27.0-35.0); MCHC 31.3 g/dL (32.0-36.0); MCV 81.9 fL (80-100); MPV 8.7 fL (7.6-11.3); Monocytes % 8.7 % (3.3-12.3); Nucleated Red Blood Cells % 0.1 % (0-0); Platelets 161 thou/uL (152-406); RBC Red Blood Cell Count 5.63 M/uL (3.86-4.86); Red Cell Distribution Width 20.4 % (12.1-15.2)
--- NOTE | 2024-02-13 11:01 | RAD REPORT ---
EXAM DESCRIPTION: CT - Angio Aorta For Dissection - 02/13/2024 9:57 am CLINICAL HISTORY: chest pain, HTN COMPARISON: Chest Single View dated 02/13/2024 TECHNIQUE: Thin axial CT images of the chest, abdomen, and pelvis were obtained during administratio n of 100mL Isovue 370 IV contrast. Sagittal and coronal reconstructions as well as maximal intensity projection reconstruction were generated and reviewed per an aortic angiography protocol. All CT scans are performed using dose optimization technique as appropriate and may include automated exposure control or mA/KV adjustment according to patient size. FINDINGS: Aorta is normal in diameter with no dissection or other acute aortic findings. Reconstruct ion images show no significant findings. Pulmonary arteries show no appreciable filling defects. Prominent caliber of the right, left, and frdeeric n pulmonary arteries, suggesting ongoing pulmonary arterial hypertension. Moderate cardiomegaly. No mass or infiltrate in the lung parenchyma. No pleural thickening, pleural effusion or pneumothorax . No abnormal mediastinal or hilar mass or lymphadenopathy seen. No chest wall mass or abnormal axillar y lymphadenopathy. Celiac, SMA, JOSELIN, and renal arteries show no suspicious findings. Mild nonspecific bilateral perineph raquel fat stranding. Left renal interpolar tiny focus of hypoattenuation may represent a sub centimeter cyst or focal scarring, not well characterized. Solid abdominal viscera and bowel show no other sign ificant findings. No mass or abnormal lymphadenopathy. IMPRESSION: No acute abnormalities on CT angiogram of the aorta. Prominent caliber of the right, left, and main pulmonary arteries, suggesting ongoing pulmonary arter ial hypertension. Mild nonspecific bilateral perinephric fat stranding, without other focal parenchymal abnormalities. Please correlate for evidence of acute or chronic kidney disease.
--- NOTE | 2024-02-13 11:04 | RAD REPORT ---
[facility] CLINICAL HISTORY: CHEST PAIN COMPARISON: Chest Single View dated 06/05/2022; Chest Single View dated 11/29/2020; Chest Single View dated 09/29/2020; CHEST SINGLE VIEW dated 02/20/2012 TECHNIQUE: Portable AP view of the chest. FINDINGS: The lungs are clear. No pneumothorax or effusion. Moderate to severe cardiomegaly. Medias tinal contours are unremarkable. IMPRESSION: No acute pulmonary process. Cardiomegaly.
--- NOTE | 2024-02-13 11:14 | EDPHYS ---
Physician Documentation [facility] Name: Savana Potter Age: 38 yrs Sex: Female : 1985 Arrival Date: 02/13/2024 Time: 08:07 Bed 15 Private MD: ED Physician Mauricio Levy HPI: 02/12 09:29 This 38 yrs old Female presents to ER via Ambulatory with complaints of Chest Pain. rn 09:29 The patient or guardian reports chest pain that is located primarily in the anterior rn chest wall, left. Onset: yesterday. The pain radiates to Associated signs and symptoms: Pertinent positives: shortness of breath, Pertinent negatives: abdominal pain, cough, lower extremity swelling, syncope. The chest pain is described as a pressure, sharp, stabbing. Duration: The patient or guardian reports multiple episodes, that are intermittent. Modifying factors: The symptoms are alleviated by nothing. the symptoms are aggravated by deep breath. Severity of pain: At its worst the pain was moderate in the emergency department the pain has improved. The patient has not experienced similar symptoms in the past. Patient reports left-sided chest pain that crosses to the right side, radiates to the neck, began yesterday but worse this morning. Reports episodic and worse with deep inspiration. No history of DVT or PE. Reports has history of congestive heart failure but has never had an infarction. Denies abdominal pain or vomiting.. Historical: - Allergies: 08:18 No Known Allergies; hb - Home Meds: 08:18 unknown HTN med [Active]; hb - PMHx: 08:18 CHF; Systolic HF; TOA; hb - PSHx: 08:18 section; Cholecystectomy; hb - Immunization history:: Adult Immunizations up to date. - Infectious Disease History:: Denies. - Social history:: Smoking status: Patient/guardian denies using tobacco. - Family history:: not pertinent. - Hospitalizations: : No recent hospitalization is reported. 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 No pulse deficits. Respiratory: No increased work of breathing, no retractions or nasal flaring. Abdomen/GI: Soft, non-tender MS/ Extremity: Pulses equal, no cyanosis. Neuro: Awake and alert, GCS 15 10:11 ECG was reviewed by the Attending Physician. rn Vital Signs: 08:18 BP 139 / 111; Pulse 108; Resp 22; Temp 98.3; Pulse Ox 99% on R/A; Weight 108.86 kg; hb Height 5 ft. 1 in. ; Pain 10/10; 09:20 BP 140 / 101; Pulse 95; Resp 17; Pulse Ox 98% on R/A; rs5 11:15 BP 129 / 94; Pulse 70; Resp 17; Pulse Ox 96% on 2 lpm NC; rs5 13:05 BP 133 / 91; Pulse 77; Resp 17; Pulse Ox 97% on 2 lpm NC; rs5 08:18 Body Mass Index 45.35 (108.86 kg, 154.94 cm) hb 08:18 Pain Scale: Adult hb MDM: 08:24 Patient medically screened. rn 11:12 Differential diagnosis: acute myocardial infarction, acute pericarditis, coronary rn artery disease congestive heart failure pleurisy, pneumonia, pneumothorax, pulmonary embolus, stable angina, thoracic aortic disection, unstable angina. HEART Score: History: Moderately Suspicious (1), ECG: Non specific repolarization disturbance / LBTB / PM (1), Age: < or = 45 years (0), Risk Factors: 1 or 2 risk factors (1), Troponin: > or = 3 x Normal Limit (2), Total Score = 5. The patient was given aspirin in the Emergency Department. Data reviewed: vital signs, nurses notes, lab test result(s), EKG, radiologic studies, plain films, and as a result, I will admit patient. Consideration of Admission/Observation Patient was admitted/placed on observation. Escalation of care including admission/observation considered. Independent interpretation of the following test(s) in the Emergency Department EKG: See my EKG interpretation above X-Ray: My interpretation is Chest x-ray images negative for pneumothorax or pneumonia per my interpretation. Care significantly affected by the following chronic conditions: Hypertension, Congestive Heart Failure. Counseling: I had a detailed discussion with the patient and/or guardian regarding the historical points, exam findings, and any diagnostic results supporting the discharge/admit diagnosis, lab results, radiology results, the need for further work-up and treatment in the hospital. Response to treatment: the patient's symptoms have mildly improved after treatment, and as a result, I will admit patient. 02/12 08:29 Order name: Basic Metabolic Panel; Complete Time: 09:24 rn 02/12 08:29 Order name: CBC with Diff; Complete Time: 09:47 rn 02/12 08:29 Order name: LFT's; Complete Time: 09:24 rn 02/12 08:29 Order name: NT PRO-BNP; Complete Time: 09:24 rn 02/12 08:29 Order name: PT-INR; Complete Time: 09:24 rn 02/12 08:29 Order name: Troponin HS; Complete Time: 09:24 rn 02/12 08:29 Order name: Lipase; Complete Time: 09:24 rn 02/12 12:14 Order name: Urinalysis W/Microscopic EDMS 02/12 12:14 Order name: Urine Drug Screen EDMS 02/12 12:14 Order name: CBC with Automated Diff EDMS 02/12 12:14 Order name: CBC with Automated Diff EDMS 02/12 12:14 Order name: Comprehensive Metabolic Panel EDMS 02/12 12:14 Order name: Comprehensive Metabolic Panel EDMS 02/12 12:14 Order name: Lipid Profile EDMS 02/12 12:14 Order name: Lipid Profile EDMS 02/12 12:14 Order name: Magnesium EDMS 02/12 12:14 Order name: Magnesium EDMS 02/12 12:14 Order name: NT PRO-BNP EDMS 02/12 12:14 Order name: NT PRO-BNP EDMS 02/12 12:14 Order name: Phosphorus EDMS 02/12 12:14 Order name: Phosphorus EDMS 02/12 12:14 Order name: Protime (+INR) EDMS 02/12 12:14 Order name: Protime (+INR) EDMS 02/12 12:14 Order name: PTT, Activated Partial Thromb EDMS 02/12 12:14 Order name: PTT, Activated Partial Thromb EDMS 02/12 12:14 Order name: Troponin High Sensitivity EDMS 02/12 12:14 Order name: Troponin High Sensitivity [facility]AR 02/12 12:14 Order name: Troponin High Sensitivity [facility] 02/12 08:29 Order name: XRAY Chest (1 view); Complete Time: 11:07 rn 02/12 08:29 Order name: CT Aorta for Dissection; Complete Time: 11:07 rn 02/12 12:14 Order name: Echo with Doppler EDAR 02/12 12:14 Order name: CONS Physician Consult EDAR 02/12 08:29 Order name: Cardiac monitoring; Complete Time: 08:50 rn 02/12 08:29 Order name: EKG - Nurse/Tech; Complete Time: 08:47 rn 02/12 08:29 Order name: IV Saline Lock; Complete Time: 08:50 rn 02/12 08:29 Order name: Labs collected and sent; Complete Time: 08:50 rn 02/12 08:29 Order name: O2 Per Protocol; Complete Time: 08:50 rn 02/12 08:29 Order name: O2 Sat Monitoring; Complete Time: 08:50 rn EC:11 Rate is 104 beats/min. Rhythm is regular. Right axis deviation noted. QRS is negative rn in leads I, aVF. QRS interval is normal. QT interval is normal. No Q waves. T waves are Normal. No ST changes noted. Clinical impression: Sinus tachycardia. Interpreted by me. Reviewed by me. Administered Medications: 08:45 Drug: morphine IVP or IV 4 mg IVP once over 4 mins Route: IVP; Infused Over: 4 mins; rs5 Site: right antecubital; 09:05 Follow up: Response: No adverse reaction rs5 08:45 Drug: Ondansetron IVP 4 mg IVP once; over 2 minutes Route: IVP; Site: right antecubital;rs5 09:05 Follow up: Response: No adverse reaction rs5 11:15 Drug: Aspirin PO Chewable Tablet 324 mg PO once; 81 mg tablets x 4 Route: PO; rs5 11:35 Follow up: Response: No adverse reaction rs5 11:15 Drug: Nitroglycerin Sublingual 0.4 mg Sublingual once Route: Sublingual; rs5 11:36 Follow up: Response: No adverse reaction; Pain is decreased rs5 Disposition Summary: 02/13/24 11:13 Hospitalization Ordered Notes: Hospitalization Status: Inpatient Admission rn Provider: Keshawn Patten rn Condition: Stable rn Problem: new rn Symptoms: have improved rn Bed/Room Type: Standard rn Location: Intensive Care Unit(02/13/24 12:23) 4 Room Assignment: 6-(02/13/24 12:23) mb4 Diagnosis - Chest pain, unspecified rn - Subsequent non-ST elevation (NSTEMI) myocardial infarction rn Forms: - Medication Reconciliation Form rn - SBAR form rn - Leadership Thank You Letter rn Signatures: Dispatcher [employer] EDMS Mauricio Levy MD MD rn Baxter, Heather, RN RN Skylar Ponce 4 Eldon Gardner RN RN rs5 Corrections: (The following items were deleted from the chart) 08:30 08:30 BASIC METABOLIC PANEL+C.LAB.BRZ ordered. EDMS EDMS 08:30 08:30 CBC+H.LAB.BRZ ordered. EDMS EDMS 08:30 08:30 HEPATIC FUNCTION+C.LAB.BRZ ordered. EDMS EDMS 08:30 08:30 PROBNP+C.LAB.BRZ ordered. EDMS EDMS 08:30 08:30 PROTIME (+INR)+COAG.LAB.BRZ ordered. EDMS EDMS 08:30 08:30 Troponin High Sensitivity+C.LAB.BRZ ordered. EDMS EDMS 08:30 08:30 LIPASE+C.LAB.BRZ ordered. EDMS EDMS 08:30 08:30 Chest Single View+RAD.RAD.BRZ ordered. EDMS EDMS 08:30 08:30 Angio Aorta For Dissection+CT.RAD.BRZ ordered. EDMS EDMS 12:23 11:13 Telemetry/MedSurg (Inpatient) rn mb4 12:23 11:13 rn mb4
--- NOTE | 2024-02-13 11:14 | ER ---
Nurse's Notes [facility] Name: Savana Potter Age: 38 yrs Sex: Female : 1985 Arrival Date: 02/13/2024 Time: 08:07 Bed 15 Private MD: Diagnosis: Chest pain, unspecified;Subsequent non-ST elevation (NSTEMI) myocardial infarction Presentation: 02/12 08:18 Chief complaint: Left sided chest pain x 3 hours. Coronavirus screen: At this time, the hb client does not indicate any symptoms associated with coronavirus-19. Ebola Screen: No symptoms or risks identified at this time. Initial Sepsis Screen: Does the patient meet any 2 criteria? No. Patient's initial sepsis screen is negative. Does the patient have a suspected source of infection? No. Patient's initial sepsis screen is negative. Risk Assessment: Do you want to hurt yourself or someone else? Patient reports no desire to harm self or others. Onset of symptoms was February 13, 2024. 08:18 Method Of Arrival: Ambulatory 08:18 Acuity: ADEOLA 2 hb Triage Assessment: 08:18 General: Appears distressed, Behavior is cooperative, anxious. Pain: Pain currently is hb 10 out of 10 on a pain scale. Neuro: Level of Consciousness is awake, alert, obeys commands, Oriented to person, place, time, situation. Cardiovascular: Reports chest pain, Patient's skin is warm and dry. Respiratory: Respiratory effort is even, unlabored, Respiratory pattern is tachypnea. Historical: - Allergies: 08:18 No Known Allergies; hb - Home Meds: 08:18 unknown HTN med [Active]; hb - PMHx: 08:18 CHF; Systolic HF; TOA; hb - PSHx: 08:18 section; Cholecystectomy; hb - Immunization history:: Adult Immunizations up to date. - Infectious Disease History:: Denies. - Social history:: Smoking status: Patient/guardian denies using tobacco. - Family history:: not pertinent. - Hospitalizations: : No recent hospitalization is reported. Screenin:11 [facility] ED Fall Risk Assessment (Adult) History of falling in the last 3 months, rs5 including since admission No falls in past 3 months (0 pts) Confusion or Disorientation No (0 pts) Intoxicated or Sedated No (0 pts) Impaired Gait No (0 pts) Mobility Assist Device Used No (0 pt) Altered Elimination No (0 pt) Score/Fall Risk Level 0 - 2 = Low Risk Oriented to surroundings, Maintained a safe environment. Abuse screen: Denies threats or abuse. Nutritional screening: No deficits noted. Tuberculosis screening: No symptoms or risk factors identified. Assessment: 08:11 General: Appears distressed, uncomfortable, Behavior is cooperative, anxious. Pain: rs5 Complains of pain in chest Pain does not radiate. Pain currently is 8 out of 10 on a pain scale. Quality of pain is described as aching, heavy, pressure, Pain began 3 hours ago. Is intermittent. Neuro: Level of Consciousness is awake, alert, obeys commands, Oriented to person, place, time, situation. Cardiovascular: Patient's skin is warm and dry. Respiratory: Airway is patent Respiratory effort is even, unlabored, Respiratory pattern is regular, symmetrical. GI: Abdomen is round non-distended, Abd is soft and non tender X 4 quads. : No signs and/or symptoms were reported regarding the genitourinary system. EENT: No signs and/or symptoms were reported regarding the EENT system. Derm: Skin is intact, Skin is pink, warm \\T\\ dry. Musculoskeletal: Range of motion: intact in all extremities. 09:19 Reassessment: Patient and/or family updated on plan of care and expected duration. Pain rs5 level reassessed. Patient is alert, oriented x 3, equal unlabored respirations, skin warm/dry/pink. 11:05 Reassessment: pt complains of pain in pain in chest, rating 2/10, described as heavy rs5 and aching. pt states "it feels like there's something sitting on chest" provider notified. 11:34 Reassessment: Patient and/or family updated on plan of care and expected duration. Pain rs5 level reassessed. Patient is alert, oriented x 3, equal unlabored respirations, skin warm/dry/pink. Cardiovascular: Patient's skin is warm and dry. Rhythm is regular. Respiratory: Respiratory effort is even, unlabored, Respiratory pattern is regular, symmetrical. 12:15 Reassessment: No changes from previously documented assessment. rs5 13:04 Reassessment: Patient and/or family updated on plan of care and expected duration. Pain rs5 level reassessed. Patient is alert, oriented x 3, equal unlabored respirations, skin warm/dry/pink. Patient denies pain at this time. 13:04 Cardiovascular: Rhythm is regular. rs5 13:18 Reassessment: report given to nurse at bedside for transport to construction laborer. rs5 Vital Signs: 08:18 BP 139 / 111; Pulse 108; Resp 22; Temp 98.3; Pulse Ox 99% on R/A; Weight 108.86 kg; hb Height 5 ft. 1 in. ; Pain 10/10; 09:20 BP 140 / 101; Pulse 95; Resp 17; Pulse Ox 98% on R/A; rs5 11:15 BP 129 / 94; Pulse 70; Resp 17; Pulse Ox 96% on 2 lpm NC; rs5 13:05 BP 133 / 91; Pulse 77; Resp 17; Pulse Ox 97% on 2 lpm NC; rs5 08:18 Body Mass Index 45.35 (108.86 kg, 154.94 cm) hb 08:18 Pain Scale: Adult hb ED Course: 08:09 Patient arrived in ED. ra3 08:11 Patient has correct armband on for positive identification. Placed in gown. Bed in low rs5 position. Call light in reach. Side rails up X2. Client placed on continuous cardiac and pulse oximetry monitoring. NIBP monitoring applied. 08:11 No provider procedures requiring assistance completed. rs5 08:18 Triage completed. hb 08:20 Arm band placed on. hb 08:24 Mauricio Levy MD is Attending Physician. rn 08:51 XRAY Chest (1 view) In Process Unspecified. EDMS 09:08 Eldon Gardner, RN is Primary Nurse. rs5 09:23 Notified ED physician of a critical lab result(s). TROP 2703.6. hb 09:58 CT Aorta for Dissection In Process Unspecified. EDMS 11:13 Keshawn Patten MD is Hospitalizing Provider. rn 13:18 Patient admitted, IV remains in place. rs5 Administered Medications: 08:45 Drug: morphine IVP or IV 4 mg IVP once over 4 mins Route: IVP; Infused Over: 4 mins; rs5 Site: right antecubital; 09:05 Follow up: Response: No adverse reaction rs5 08:45 Drug: Ondansetron IVP 4 mg IVP once; over 2 minutes Route: IVP; Site: right antecubital;rs5 09:05 Follow up: Response: No adverse reaction rs5 11:15 Drug: Aspirin PO Chewable Tablet 324 mg PO once; 81 mg tablets x 4 Route: PO; rs5 11:35 Follow up: Response: No adverse reaction rs5 11:15 Drug: Nitroglycerin Sublingual 0.4 mg Sublingual once Route: Sublingual; rs5 11:36 Follow up: Response: No adverse reaction; Pain is decreased rs5 Medication: 09:20 VIS not applicable for this client. rs5 Outcome: 11:13 Decision to Hospitalize by Provider. 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 rs5 Signatures: Dispatcher [employer] EDMS Mauricio Levy MD MD rn Baxter, Heather, RN RN Eldon Gardner RN RN rs5 Ruth Hyatt ra3 Corrections: (The following items were deleted from the chart) 13:05 11:15 BP 129 / 94; Pulse 70bpm; Resp 17bpm; Pulse Ox 99% RA; rs5 rs5 15:01 13:04 Reassessment: Patient and/or family updated on plan of care and expected rs5 duration. Pain level reassessed. Patient is alert, oriented x 3, equal unlabored respirations, skin warm/dry/pink. rs5
[2024-02-13] MEDS ORDERED: ASPIRIN 81 MG CHEWABLE TABLET ONE (11:21)
[2024-02-13] MEDS ORDERED: NITROGLYCERIN 0.4 MG/TAB SL ONE (11:21)
[2024-02-13] MEDS ORDERED: ONDANSETRON 4 MG/2 ML VIAL IV PRN (12:08)
--- NOTE | 2024-02-13 12:13 | P.HP ---
Certification for Inpatient Patient admitted to: Inpatient With expected LOS: >2 Midnights Patient will require the following post-hospital care: None Practitioner: I am a practitioner with admitting privileges, knowledge of patient current condition, hospital course, and medical plan of care. Services: Services provided to patient in accordance with Admission requirements found in Title 42 Section 412.3 of the Code of Federal Regulations Patient History Date of Service: 02/13/24 Reason for admission: Acute coronary syndrome History of Present Illness: Patient is a 38-year-old female with history of cardiac disease who presents to the emergency room with chest pain and shortness of breath. She states she had a cardiac catheterization done 4 years ago at [facility] and was found to have mild atherosclerotic disease. She did not need any interval interventions. She had an echo done at that time and had an EF of 40%. She was following along with Dr. 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 However, she has not seen him in 2 years. She states she is still taking her cardiac meds that she had multiple refills. She had moved out of town and has not seen a physician since that time. Her symptoms started last night. She states she had chest pain while she was moving her chair. It slowly went away. However, when she woke up this morning she had severe chest pain with shortness of breath. She was unable to catch her breath, so she came into the emergency room. In the ER, her troponins and her BNP were elevated. She still having chest discomfort. Plan is to anticoagulate her and give her antiplatelet therapy. Will give her statin therapy as well. Cardiology has been consulted and patient will be kept n.p.o. for cardiac catheterization. Allergies No Known Allergies Allergy (Verified 06/05/22 21:11) Home Medications: Aspirin [Aspirin EC 81 MG] 81 mg PO DAILY #30 tablet. 09/30/20 Sacubitril/Valsartan [Entresto 24 mg-26 mg Tablet] 1 tab PO BID 06/06/22 Benzonatate [Tessalon Perle*] 200 mg PO TID PRN #30 cap 06/08/22 Fluticasone/Salmeterol [Advair Hfa 230-21 Mcg Inhaler] 12 gm IH BID #1 inh 06/08/22 Furosemide [Lasix] 40 mg PO BID #60 tablet 06/08/22 levoFLOXacin [Levaquin*] 750 mg PO DAILY #7 tab 06/08/22 - Past Medical/Surgical History Diabetic: No -: HTN -: CHF -: Obesity -: Coronary artery disease -: section -: Cholecystectomy Psychosocial/ Personal History: NO TOB,NO ETOH,NO DRUG USE - Family History Father Family History: Reviewed- Non-Contributory - Social History Smoking Status: Never smoker Alcohol use: No CD- Drugs: No Caffeine use: Yes Review of Systems 10-point ROS is otherwise unremarkable Physical Examination - Vital Signs Temperature: 98 F Blood Pressure: 150/60 Pulse: 90 Respirations: 20 Pulse Ox (%): 95 - Physical Exam General: Alert, In no apparent distress, Oriented x3 HEENT: Atraumatic, PERRLA, Mucous membr. moist/pink, EOMI, Sclerae nonicteric Neck: Supple, 2+ carotid pulse no bruit, No LAD, Without JVD or thyroid abnormality Respiratory: Clear to auscultation bilaterally, Normal air movement Cardiovascular: Regular rate/rhythm, Normal S1 S2, Systolic murmur Gastrointestinal: Normal bowel sounds, Soft and benign, Non-distended, No tenderness Musculoskeletal: No clubbing, No swelling, No tenderness Integumentary: No rashes Neurological: Normal gait, Normal speech, Normal strength at 5/5 x4 extr, Normal tone, Normal affect Lymphatics: No axilla or inguinal lymphadenopathy - Studies Laboratory Data (last 24 hrs) 02/13/24 02/13/24 02/13/24 08:38 08:38 08:38 WBC 7.20 Hgb 14.4 Hct 46.1 H Plt Count 161 PT 14.8 H INR 1.36 Sodium 136 Potassium 3.8 BUN 20 H Creatinine 0.96 Glucose 127 H Total Bilirubin 1.4 H AST 14 L ALT 25 Alkaline Phosphatase 98 Lipase 27 Assessment & Plan - Problems (Diagnosis) (1) Acute coronary syndrome Current Visit: Yes Status: Acute (2) Acute on chronic systolic heart failure Current Visit: No Status: Acute (3) CHF exacerbation Current Visit: No Status: Acute (4) HTN (hypertension) Current Visit: No Status: Acute (5) Morbid obesity Current Visit: No Status: Acute - Plan -High-sensitivity troponin -Cardiology consultation -Echocardiogram -Repeat EKG -Lipid profile -Heparin -statin Discharge Plan: Home Plan to discharge in: Greater than 2 days - Advance Directives Does patient have a Living Will: No Does patient have a Durable POA for Healthcare: No - Code Status/Comfort Care Code Status Assessed: Yes Code Status: Full Code Critical Care: Yes Time Spent Managing PTS Care (In Minutes): 55
[2024-02-13] MEDS ORDERED: MORPHINE 2 MG/ML SYR ONE (12:20)
[2024-02-13] MEDS: MORPHINE 4 MG/ML SYR IV PRN (12:30)
[2024-02-13] MEDS ORDERED: HEPARIN/D5W 25,000 UNIT/500 ML BAG IV SCH (13:00)
--- NOTE | 2024-02-13 13:19 | P.CNS ---
Date of Consult: 02/13/24 Chief Complaint: Acute coronary syndrome History of Present Illness: Patient with PMH of heart failure, mild reduced EF, HTN presented with chest pain that started this morning at 6 am, pressure in nature, get worse with breathing associated with diaphoresis, denies any other symptoms. Allergies No Known Allergies Allergy (Verified 06/05/22 21:11) Home Medications: Aspirin [Aspirin EC 81 MG] 81 mg PO DAILY #30 tablet. 09/30/20 Sacubitril/Valsartan [Entresto 24 mg-26 mg Tablet] 1 tab PO BID 06/06/22 Benzonatate [Tessalon Perle*] 200 mg PO TID PRN #30 cap 06/08/22 Fluticasone/Salmeterol [Advair Hfa 230-21 Mcg Inhaler] 12 gm IH BID #1 inh 06/08/22 Furosemide [Lasix] 40 mg PO BID #60 tablet 06/08/22 levoFLOXacin [Levaquin*] 750 mg PO DAILY #7 tab 06/08/22 - Past Medical/Surgical History Diabetic: No -: HTN -: CHF -: Obesity -: Coronary artery disease -: section -: Cholecystectomy Psychosocial/ Personal History: NO TOB,NO ETOH,NO DRUG USE - Family History Father Family History: Reviewed- Non-Contributory - Social History Smoking Status: Current some day smoker Alcohol use: No CD- Drugs: No Caffeine use: Yes Review of Systems 10-point ROS is otherwise unremarkable Physical Examination Temp Pulse Resp BP Pulse Ox 98 F 90 20 150/60 H 95 02/13/24 12:15 02/13/24 12:15 02/13/24 12:15 02/13/24 12:15 02/13/24 12:15 General: Alert, In no apparent distress HEENT: Atraumatic, PERRLA, Mucous membr. moist/pink, EOMI, Sclerae nonicteric Neck: Supple, 2+ carotid pulse no bruit, No LAD, Without JVD or thyroid abnormality Respiratory: Clear to auscultation bilaterally, Normal air movement Cardiovascular: Regular rate/rhythm, Normal S1 S2 Gastrointestinal: Normal bowel sounds, No tenderness Musculoskeletal: No tenderness Integumentary: No rashes Neurological: Normal gait, Normal speech, Normal tone, Normal affect Lymphatics: No axilla or inguinal lymphadenopathy Laboratory Data (last 24 hrs) 02/13/24 02/13/24 02/13/24 08:38 08:38 08:38 WBC 7.20 Hgb 14.4 Hct 46.1 H Plt Count 161 PT 14.8 H INR 1.36 Sodium 136 Potassium 3.8 BUN 20 H Creatinine 0.96 Glucose 127 H Total Bilirubin 1.4 H AST 14 L ALT 25 Alkaline Phosphatase 98 Lipase 27 - Problems (1) NSTEMI (non-ST elevated myocardial infarction) Current Visit: Yes Status: Acute Plan: plan for coronary angiogram, ASA 81 mg daily Lipitor 40 mg daily. (2) Acute on chronic systolic heart failure Current Visit: No Status: Acute Plan: Continue Lopressor 50 mg po BID. Continue Lasix 40 mg daily (3) HTN (hypertension) Current Visit: No Status: Acute Plan: as above.
[2024-02-13] MEDS: NA CHLORIDE 0.9% 500 ML ONE (13:23)
[2024-02-13] MEDS ORDERED: NITROGLYCERIN/D5W 50 MG/250 ML BTL IV ONE (13:32)
[2024-02-13] MEDS ORDERED: FENTANYL CITR 100 MCG/2 ML ONE (13:32)
[2024-02-13] MEDS ORDERED: HEPA 1000U/500MLS 2,000 UNIT/1,000 ML BAG IV ONE (13:32)
[2024-02-13] MEDS ORDERED: LIDOCAINE 1% 20 ML MDV ONE (13:32)
[2024-02-13] MEDS ORDERED: CLOPIDOGREL 75 MG TABLET ONE (13:33)
[2024-02-13] MEDS ORDERED: HEPARIN 10,000 UNIT/10 ML VIAL IV ONE (13:33)
[2024-02-13] MEDS ORDERED: MIDAZOLAM HCL 2 MG/2 ML INJ ONE (13:33)
[2024-02-13] MEDS ORDERED: HEPARIN 5000 UNIT/ML 1 ML VIAL ONE (13:33)
[2024-02-13] MEDS ORDERED: ATROPINE SULF 1 MG/10 ML SYR IV ONE (13:33)
[2024-02-13] MEDS ORDERED: TICAGRELOR 90 MG TABLET PO ONE (13:33)
[2024-02-13] MEDS ORDERED: ASPIRIN 325 MG TAB ONE (13:34)
[2024-02-13] MEDS ORDERED: HEPARIN 5000 UNIT/ML 1 ML VIAL IV PRN (14:30)
[2024-02-13 15:23] VITALS: BMI 48.2
[2024-02-13] MEDS: FUROSEMIDE 40 MG TABLET PO SCH (17:53)
[2024-02-13 19:11] LABS: Barbiturates NEGATIVE (NEGATIVE); Benzodiazepines POSITIVE (NEGATIVE); Cocaine NEGATIVE (NEGATIVE); METHAMPHETAM POSITIVE (NEGATIVE); Methadone NEGATIVE (NEGATIVE); Opiates POSITIVE (NEGATIVE); Phencyclidine NEGATIVE (NEGATIVE); THC Cannibis POSITIVE (NEGATIVE)
[2024-02-13 19:16] LABS: Sqamous Epithelial <5 /HPF (None Seen); Urine Bacteria None Seen /HPF (<20); Urine Culture Reflex Order NOT NEEDED; Urine Mucus Slight /HPF (None Seen); Urine RBC <5 /HPF (None Seen); Urine WBC <5 /HPF (<5)
[2024-02-13 19:24] LABS: Specific Gravity > 1.030 (1.005-1.030); Urine Bilirubin NEGATIVE (Negative); Urine Blood Negative (Negative); Urine Clarity Clear (Clear); Urine Color Yellow (Yellow); Urine Glucose NEGATIVE (Negative); Urine Ketones NEGATIVE (Negative); Urine Micro Reflex YN NO BILL NO MICROSCOPIC; Urine Nitrite NEGATIVE (Negative); Urine Protein 1+ (Negative); Urine Urobilinogen Normal (Normal); Urine pH 5.5 (5.0-7.0)
[2024-02-13] MEDS: ATORVASTATIN 80 MG TAB PO SCH (20:49)
[2024-02-13] MEDS: METOPROLOL TAR 50 MG TAB PO SCH (20:49)
--- NOTE | 2024-02-14 00:17 | OP ---
Date of Procedure: 02/13/2024 Surgeon: Deuce Berman Procedures Performed: 1.Left heart catheterization. 2.Selective coronary angiogram. Indication For Procedure: [id number]. Access: Right radial, closed with TR band. Sedation Time: 20 minutes by 1 of Versed and 50 of fentanyl. Estimated Blood Loss: Less than 50 cc. Access: Right radial, closed by TR band. Description Of Procedure: After risks, benefits, and alternatives were explained to the patient, the patient agreed to proceed with procedure and signed informed consent. The patient was brought back to the supervisor laboratory, prepped and draped in sterile fashion. A time-out was performed. Sedation was admi nistered. Right radial ultrasound-guided 6-Dutch access was obtained. A 5-Dutch sheath Aurora 4 ca theter was advanced over J-wire to the LV cavity. LVEDP obtained. Pullback did not show any gradien ts. Same catheter was used for selective angiogram of the left and right coronary systems. At the e nd of procedure, catheter was removed over the wire. Sheath was removed and TR band was applied. He mostasis achieved. The patient was moved back to recovery in stable condition. Findings: 1.Left main, normal. 2.LAD, normal. 3.Left circ, normal. 4.Ramus, large, normal. 5.RCA normal. 6.LVEDP 31 mmHg. Assessment And Plan: 1.Normal coronaries. 2.Elevated filling pressure. The plan will be to continue medical management. MARLEN Voice ID: [id number] Report ID: [id number]
[2024-02-14 06:28] LABS: Absolute Basophils 0.1 K/uL (0-0.5); Absolute Eosinophils 0.3 K/uL (0-0.5); Absolute Lymphocytes (CBC) 1.4 K/uL (0.7-4.9); Absolute Monocytes 0.7 K/uL (0.1-1.3); Absolute Neutrophil 5.7 K/uL (1.8-8.0); Basophils % 1.1 % (0-1.3); Eosinophils % 3.7 % (0-4.4); Hematocrit 45.3 % (36.0-45.0); Hemoglobin 14.2 g/dL (12.0-15.0); Lymphocytes % 17.5 % (15.3-44.8); MCHC 31.3 g/dL (32.0-36.0); MPV 9.4 fL (7.6-11.3); Monocytes % 8.6 % (3.3-12.3); Neutrophils % 69.1 % (41.7-73.7); Nucleated Red Blood Cells % 0.2 % (0-0); Platelets 200 thou/uL (152-406); RBC Red Blood Cell Count 5.46 M/uL (3.86-4.86); Red Cell Distribution Width 19.9 % (12.1-15.2)
[2024-02-14 06:32] LABS: PT Prothrombin Time 14.1 SECONDS (9.4-12.5); PTT, Activated Partial Thromb 27.5 SECONDS (24.3-36.9); Protime INR 1.29
[2024-02-14 06:55] LABS: Albumin 3.2 g/dL (3.4-5.0); Albumin/Globulin Ratio 0.8 (1.1-1.8); Bilirubin Total 1.1 mg/dL (0.2-1.0); Globulin 3.8 g/dL (2.3-3.5); Magnesium 2.4 mg/dL (1.6-2.4); Phosphorus 3.9 mg/dL (2.5-4.9)
[2024-02-14] MEDS: ASPIRIN EC 81 MG TAB PO SCH (08:32)
[2024-02-14 09:38] LABS: Anisocytosis 1+; Blood Morphology Comment NOTED (NOT SEEN); Platelet Estimate ADEQ; Platelets, Giant PRESENT; White Blood Cell Scan OK (OK)
[2024-02-14] MEDS: ACETAMINOPHEN 500 MG TAB PO PRN (11:43)
--- NOTE | 2024-02-14 13:55 | P.PN ---
Subjective Date of Service: 02/14/24 Chief Complaint: Acute coronary syndrome Subjective: No new changes, No C/O voiced, Tolerating diet, Ambulating, Improving Review of Systems 10-point ROS is otherwise unremarkable Physical Examination - Vital Signs Temperature: 97.7 F Blood Pressure: 114/89 Pulse: 81 Respirations: 29 Pulse Ox (%): 90 - Physical Exam General: Alert, In no apparent distress HEENT: Atraumatic, PERRLA, EOMI Neck: Supple, JVD not distended Respiratory: Clear to auscultation bilaterally, Normal air movement Cardiovascular: Regular rate/rhythm, Normal S1 S2 Gastrointestinal: Normal bowel sounds, No tenderness Musculoskeletal: No tenderness Integumentary: No rashes Neurological: Normal speech, Normal tone, Normal affect Lymphatics: No axilla or inguinal lymphadenopathy - Studies Medications List Reviewed: Yes Assessment And Plan - Current Problems (Diagnosis) (1) NSTEMI (non-ST elevated myocardial infarction) Current Visit: Yes Status: Acute Plan: coronary angiogram done and shows normal coronaries, troponin rise can be secondary to substance abuse coronary spasm vs stress induced cardiomyopathy vs myocarditis, ASA 81 mg daily Lipitor 40 mg daily. get Echo (2) Acute on chronic systolic heart failure Current Visit: No Status: Acute Plan: LVEDP is elevated Continue Lopressor 50 mg po BID. Continue Lasix 40 mg BID (3) HTN (hypertension) Current Visit: No Status: Acute Plan: as above.
--- NOTE | 2024-02-14 14:07 | EKG ---
Test Date: 2024-02-13 Test Time: 08:16:29 Self Pay Collector: NIRMAL MEASUREMENT RESULTS: Intervals: Rate: 107 MT: 138 QRSD: 108 QT: 392 QTc: 523 [place]: P: 63 MT: 138 QRS: -88 T: 20 INTERPRETIVE STATEMENTS: Sinus tachycardia Biatrial enlargement Left anterior fascicular block Abnormal ECG Compared to ECG 06/05/2022 16:25:11 Sinus rhythm no longer present Right bundle-branch block no longer present Bifascicular block no longer present Myocardial infarct finding no longer present Electronically Signed On 02-14-24 14:05:41 CDT by Deuce Berman
--- NOTE | 2024-02-14 16:55 | RAD REPORT ---
EXAM DESCRIPTION: CT - Chest For Pe Angio - 02/14/2024 3:49 pm CLINICAL HISTORY: R/O PE COMPARISON: Chest For Pe Angio dated 06/05/2022; Chest For Pe Angio dated 09/29/2020 TECHNIQUE: Thin axial CT images of the chest were obtained following administration of iodinated co ntrast intravenously. Multiplanar reconstructions, and maximum intensity projection reconstructions w ere generated and reviewed. Exam utilizes a protocol for optimal evaluation of pulmonary arterial martha e. All CT scans are performed using dose optimization technique as appropriate and may include automated exposure control or mA/KV adjustment according to patient size. FINDINGS: Pulmonary arteries show no filling defects. No emboli or other suspicious finding. Promine nt caliber of the main pulmonary artery, measuring up to 4.3 cm caliber and exceeding the ascending c aliber. No acute or significant aorta findings. No mass or infiltrate in the lung parenchyma. No pleural thickening or pleural effusion. No pneumotho rax. Moderate cardiomegaly. No abnormal mediastinal or hilar masses or lymphadenopathy seen. No chest wall mass or abnormal axill iary lymphadenopathy. Evaluation of the abdominal structures reveals mild fat stranding surrounding the adrenal glands bila terally. IMPRESSION: No evidence of acute central pulmonary emboli. Prominent caliber of the main pulmonary artery, may suggest ongoing pulmonary hypertension. Moderate cardiomegaly. Mild fat stranding surrounding the adrenal glands bilaterally, which may relate to hyperemia/congesti on, which can be seen with a multitude of factors, including sepsis, anti coagulation, or steroid use . Please correlate clinically.
--- NOTE | 2024-02-15 15:06 | P.PN ---
Subjective Date of Service: 02/15/24 Chief Complaint: Acute coronary syndrome Subjective: No new changes, No C/O voiced, Tolerating diet, Ambulating, Improving Review of Systems 10-point ROS is otherwise unremarkable Physical Examination - Vital Signs Temperature: 96.9 F Blood Pressure: 130/84 Pulse: 82 Respirations: 16 Pulse Ox (%): 95 - Physical Exam General: Alert, In no apparent distress HEENT: Atraumatic, PERRLA, EOMI Neck: Supple, JVD not distended Respiratory: Clear to auscultation bilaterally, Normal air movement Cardiovascular: Regular rate/rhythm, Normal S1 S2 Gastrointestinal: Normal bowel sounds, No tenderness Musculoskeletal: No tenderness Integumentary: No rashes Neurological: Normal speech, Normal tone, Normal affect Lymphatics: No axilla or inguinal lymphadenopathy - Studies Medications List Reviewed: Yes Assessment And Plan - Current Problems (Diagnosis) (1) NSTEMI (non-ST elevated myocardial infarction) Current Visit: Yes Status: Acute Plan: coronary angiogram done and shows normal coronaries, troponin rise can be secondary to substance abuse coronary spasm vs stress induced cardiomyopathy vs myocarditis, ASA 81 mg daily Lipitor 40 mg daily. get Echo (2) Acute on chronic systolic heart failure Current Visit: No Status: Acute Plan: LVEDP is elevated Continue Lopressor 50 mg po BID. Continue Lasix 40 mg BID (3) HTN (hypertension) Current Visit: No Status: Acute Plan: as above.
[2024-02-15 21:58] VITALS: O2SAT 94
--- NOTE | 2024-02-15 23:29 | P.PN ---
Date of Service: 02/14/24 Subjective Patient status post cardiac catheterization; Patient with myocardial infarction with nonobstructive coronary artery.Patient's left ventricular end-diastolic pressures were elevated so we will continue with diuresing. Physical Examination - Vital Signs Reviewed - Physical Exam General: Alert, In no apparent distress, Oriented x3 HEENT: Atraumatic, PERRLA, Mucous membr. moist/pink, EOMI, Sclerae nonicteric Neck: Supple, 2+ carotid pulse no bruit, No LAD, Without JVD or thyroid abnormality Respiratory: Clear to auscultation bilaterally, Normal air movement Cardiovascular: Regular rate/rhythm, Normal S1 S2, Systolic murmur Gastrointestinal: Normal bowel sounds, Soft and benign, Non-distended, No tenderness Musculoskeletal: No clubbing, No swelling, No tenderness Neurological: Normal gait, Normal speech, Normal strength at 5/5 x4 extr, Normal tone, Normal affect Assessment & Plan - Problems (Diagnosis) (1) Myocardial infarction with nonobstructive coronary artery ([facility]) Current Visit: Yes Status: Acute (2) Acute on chronic systolic heart failure; acute CHF exacerbation Current Visit: No Status: Acute (3) Polysubstance abuse Current Visit: No Status: Acute (4) HTN (hypertension) Current Visit: No Status: Acute (5) Morbid obesity Current Visit: No Status: Acute - Plan -High-sensitivity troponin trending downward -Cardiology consultation appreciated; status post cardiac catheterization -Echocardiogram pending -Repeat EKG -Lipid profile reviewed -Heparin -statin -possible DC home in 24-48hrs Discharge Plan: Home Plan to discharge in: Greater than 2 days - Advance Directives Does patient have a Living Will: No Does patient have a Durable POA for Healthcare: No - Code Status/Comfort Care Code Status Assessed: Yes Code Status: Full Code Critical Care: Yes Time Spent Managing PTS Care (In Minutes): 55
--- NOTE | 2024-02-15 23:29 | P.PN ---
Date of Service: 02/15/24 Subjective Patient is clinically doing much better. Patient denies any new complaints. Still short of breath so we will continue with diuresing. Physical Examination - Vital Signs Reviewed - Physical Exam General: Alert, In no apparent distress, Oriented x3 Respiratory: Clear to auscultation bilaterally, Normal air movement Cardiovascular: Regular rate/rhythm, Normal S1 S2, Systolic murmur Gastrointestinal: Normal bowel sounds, Soft and benign, Non-distended, No tenderness Musculoskeletal: No clubbing, No swelling, No tenderness Neurological: No focal deficits Assessment & Plan - Problems (Diagnosis) (1) Myocardial infarction with nonobstructive coronary artery ([facility]) Current Visit: Yes Status: Acute (2) Acute on chronic systolic heart failure; acute CHF exacerbation Current Visit: No Status: Acute (3) Polysubstance abuse Current Visit: No Status: Acute (4) HTN (hypertension) Current Visit: No Status: Acute (5) Morbid obesity Current Visit: No Status: Acute - Plan -Continue with diuretics and antiplatelet therapy and statin therapy; echocardiogram pending. -Counseled regarding substance abuse Discharge Plan: Home Plan to discharge in: Greater than 2 days - Advance Directives Does patient have a Living Will: No Does patient have a Durable POA for Healthcare: No - Code Status/Comfort Care Code Status Assessed: Yes Code Status: Full Code Critical Care: Yes Time Spent Managing PTS Care (In Minutes): 55
--- NOTE | 2024-02-16 11:01 | P.PN ---
Subjective Date of Service: 02/16/24 Chief Complaint: Acute coronary syndrome Pt is resting comfortably in bed. She is waitingf or Eco. Pt denies any chest pain. cardiac cath was unremarkable. No other complaints. Review of Systems General: Unremarkable Eyes: Unremarkable ENT: Unremarkable Respiratory: Unremarkable Cardiovascular: Unremarkable Gastrointestinal: Unremarkable Genitourinary: Unremarkable Musculoskeletal: Unremarkable Integumentary: Unremarkable Neurological: Unremarkable Lymphatics: Unremarkable Physical Examination - Vital Signs Temperature: 96.8 F Blood Pressure: 129/93 Pulse: 63 Respirations: 24 Pulse Ox (%): 94 - Physical Exam General: Alert, In no apparent distress, Oriented x3, Obese HEENT: Atraumatic, Normocephalic, PERRLA Neck: Supple, 2+ carotid pulse no bruit, JVD not distended Respiratory: Clear to auscultation bilaterally, Normal air movement Cardiovascular: No edema, Normal pulses, Regular rate/rhythm, Normal S1 S2 Capillary refill: <2 Seconds Gastrointestinal: Normal bowel sounds, Soft and benign, Non-distended Musculoskeletal: No clubbing, No swelling, No contractures Integumentary: No rashes, No breakdown, No significant lesion Neurological: Normal gait, Normal speech, Normal strength at 5/5 x4 extr, Normal tone Lymphatics: No axilla or inguinal lymphadenopathy - Studies Medications List Reviewed: Yes Assessment And Plan - Plan Chest pain: Cardiac cath was unremarkable. Will f/u Echo. Cardiology is following. Continue statin, metoprolol and aspirin. Acute on Chronic systolic heart failure exacerbation: Will continue lasix, strict I/O and daily weight. Polysubstance abuse: Pt was advised to avoid substance abuse. Htn: continue home meds Morbid Obseity: Pt was advised to lose weight. DVT ppx: SCD Dispo : pending hospital course.
[2024-02-16 13:52] VITALS: BP 133/85; TEMP 97
--- NOTE | 2024-02-16 14:21 | ECHO ---
HEIGHT: 5 ft 1 in WEIGHT: 254 lb 14.4 oz DATE OF STUDY: 02/16/[address]: Keshawn Patten MD 2-DIMENSIONAL: YES M.MODE: YES DOPPLER: YES COLOR FLOW: YES TDS: PORTABLE: YES DEFINITY: BUBBLE STUDY: DIAGNOSIS: ACUTE CORONARY SYNDROME CARDIAC HISTORY: CATHERIZATION: SURGERY: PROSTHETIC VALVE: PACEMAKER: MEASUREMENTS (cm) DIASTOLIC (NORMALS) SYSTOLIC (NORMALS) IVSd 1.2 (0.6-1.2) LA Diam 3.6 (1.9-4.0) LVEF 30% LVIDd 5.5 (3.5-5.7) LVIDs 4.7 (2.0-3.5) %FS 14% LVPWd 1.1 (0.6-1.2) Ao Diam 3.1 (2.0-3.7) 2 DIMENSIONAL ASSESSMENT: RIGHT ATRIUM: DILATED LEFT ATRIUM: NORMAL RIGHT VENTRICLE: MILD DILATED LEFT VENTRICLE: MILD DILATED TRICUSPID VALVE: MILD TRICUSPID REGURGITATION MITRAL VALVE: NORMAL PULMONIC VALVE: NORMAL AORTIC VALVE: MILD AORTIC REGURGITATION PERICARDIAL EFFUSION: NONE AORTIC ROOT: NORMAL LEFT VENTRICULAR WALL MOTION: SEVERE GLOBAL HYPOKINESIS DOPPLER/COLOR FLOW: DIASTOLIC DYSFUNCTION COMMENTS: 1. SEVERE REDUCED LEFT VENTRICULAR FUNCTION, EJECTION FRACTION 25%, SEVERE GLOBAL HYPOKINESIS 2. DIASTOLIC DYSFUNCTION 3. SEVERE PULMONARY HYPOTENSION (RIGHT VENTRICULAR SYSTOLIC PRESSURE 55-60 mmHg) 4. ELEVATED FILLING PRESSURE (RIGHT ATRIUM 15-20 mmHg) TECHNOLOGIST: NATASHA MACEDO
--- NOTE | 2024-02-16 14:23 | EKG ---
Test Date: 2024-02-13 Test Time: 08:17:50 Security Services Manager: NIRMAL MEASUREMENT RESULTS: Intervals: Rate: 104 [place]: 140 QRSD: 108 QT: 394 QTc: 518 [place]: P: 60 WA: 140 QRS: -87 T: 15 INTERPRETIVE STATEMENTS: Sinus tachycardia Biatrial enlargement Left anterior fascicular block Nonspecific ST and T wave abnormality Abnormal ECG Compared to ECG 02/13/2024 08:16:29 ST (T wave) deviation now present Electronically Signed On 02-16-24 14:16:34 CDT by Flex Rueda
--- NOTE | 2024-02-16 14:49 | P.DS ---
Admission Date: 02/13/24 Discharge Date: 02/16/24 Disposition: ROUTINE DISCHARGE Discharge Condition: GOOD Reason for Admission: Acute coronary syndrome Brief History of Present Illness: Patient is a 38-year-old female with history of cardiac disease who presents to the emergency room with chest pain and shortness of breath. She states she had a cardiac catheterization done 4 years ago at [facility] and was found to have mild atherosclerotic disease. She did not need any interval interventions. She had an echo done at that time and had an EF of 40%. She was following along with Dr. Juarez, customer support specialist in [place]. However, she has not seen him in 2 years. She states she is still taking her cardiac meds that she had multiple refills. She had moved out of town and has not seen a physician since that time. Her symptoms started last night. She states she had chest pain while she was moving her chair. It slowly went away. However, when she woke up this morning she had severe chest pain with shortness of breath. She was unable to catch her breath, so she came into the emergency room. In the ER, her troponins and her BNP were elevated. She still having chest discomfort. Plan is to anticoagulate her and give her antiplatelet therapy. Will give her statin therapy as well. Cardiology has been consulted and patient will be kept n.p.o. for cardiac catheterization. Hospital Course: Patient is a 38yo female with past medical history of cardiac disease, Htn, polysubstance abuse and morbid obesity who presented with chest pain and shortness of breath. Of note, pt had cardiac catheterization done 4 years ago at [facility] and was found to have mild atherosclerotic disease. She did not need any interval interventions. She had an echo done at that time and had an EF of 40%. She was following along with Dr. Juarez, customer support specialist in [place]. Pt was not compliant with outpatient appointment with her customer support specialist. On admission, lab studies showed elevated troponins and BNP. Cardiology dd cardiac cath which was unremarkable. Echo showed EF 25% with diastolic dysfunction. We continued statin, metoprolol and aspirin. Cardiology adjusted her home meds to the following (coreg, entresto, lasix 40mg po daily and statin). She was advised to stop using drugs. We continued home med for other chronic medical problems. Pt was in NAD prior to discharge. Vital Signs/Physical Exam: Temp Pulse Resp BP Pulse Ox 97.0 F 86 22 H 133/85 95 02/16/24 12:00 02/16/24 12:00 02/16/24 12:00 02/16/24 12:00 02/16/24 12:00 Laboratory Data at Discharge: WBC 8.20 thou/uL (4.3-10.9) 02/14/24 05:16 Hgb 14.2 g/dL (12.0-15.0) 02/14/24 05:16 Hct 45.3 % (36.0-45.0) H 02/14/24 05:16 Plt Count 200 thou/uL (152-406) 02/14/24 05:16 PT 14.1 SECONDS (9.4-12.5) H 02/14/24 05:16 INR 1.29 02/14/24 05:16 APTT 27.5 SECONDS (24.3-36.9) 02/14/24 05:16 Sodium 135 mEq/L (136-145) L 02/14/24 05:16 Potassium 4.0 mEq/L (3.5-5.1) 02/14/24 05:16 BUN 16 mg/dL (7-18) 02/14/24 05:16 Creatinine 0.85 mg/dL (0.55-1.02) 02/14/24 05:16 Glucose 116 mg/dL (74-106) H 02/14/24 05:16 Phosphorus 3.9 mg/dL (2.5-4.9) 02/14/24 05:16 Magnesium 2.4 mg/dL (1.6-2.4) 02/14/24 05:16 Total Bilirubin 1.1 mg/dL (0.2-1.0) H 02/14/24 05:16 AST 19 U/L (15-37) 02/14/24 05:16 ALT 24 U/L (13-56) 02/14/24 05:16 Alkaline Phosphatase 96 U/L (45-117) 02/14/24 05:16 Triglycerides 86 mg/dL (<150) 02/14/24 05:16 Cholesterol 125 mg/dL (<200) 02/14/24 05:16 HDL Cholesterol 33 mg/dL (40-60) L 02/14/24 05:16 Cholesterol/HDL Ratio 3.79 02/14/24 05:16 Lipase 27 U/L (13-75) 02/13/24 08:38 Home Medications: Aspirin [Aspirin EC 81 MG] 81 mg PO DAILY #30 tablet. 09/30/20 Atorvastatin Calcium [Lipitor] 80 mg PO BEDTIME #30 tab 02/15/24 Fluticasone/Salmeterol [Advair Hfa 230-21 Mcg Inhaler] 12 gm IH BID #1 inh 02/15/24 Potassium Chloride [K-Dur] 20 meq PO BID #60 tab 02/15/24 Sacubitril/Valsartan [Entresto 24 mg-26 mg Tablet] 1 tab PO BID #60 tab 02/15/24 predniSONE [Deltasone] 20 mg PO BID #11 tab 02/15/24 Furosemide [Lasix] 40 mg PO DAILY 60 Days #60 tab 02/16/24 carvediloL [Coreg] 12.5 mg PO BID 30 Days #60 tab 02/16/24 New Medications: Fluticasone/Salmeterol [Advair Hfa 230-21 Mcg Inhaler] 12 gm IH BID #1 inh carvediloL [Coreg] 12.5 mg PO BID 30 Days #60 tab Sacubitril/Valsartan [Entresto 24 mg-26 mg Tablet] 1 tab PO BID #60 tab Potassium Chloride [K-Dur] 20 meq PO BID #60 tab Furosemide [Lasix] 40 mg PO DAILY 60 Days #60 tab Atorvastatin Calcium [Lipitor] 80 mg PO BEDTIME #30 tab predniSONE [Deltasone] 20 mg PO BID #11 tab Physician Discharge Instructions: -DC IV and DC home -Follow-up with PCP in 1 to 2 weeks -Follow-up with Cardiology in 1 to 2 weeks -Please call Dr. Patten at [phone] if any questions regarding hospital stay -Please call nursing station at [phone] if any nursing or medication questi ons -Return to the emergency room if symptoms worsen Diet: AHA Activity: Fall precautions Followup: NONE,NONE [Primary Care Provider] -
== END 2024-02-16 15:31 | disposition home or self-care (01) | DRG 280 ==
LOC: ER 08:07 → 3RD-ICU 12:08 → UNDOADMIN 12:39 → 3RD-ICU 12:39 → 4TH 02-14 20:09
PROVIDERS: ADMIT Hospitalist; ATTEND Hospitalist
PROC: 4A023N7 Measurement of Cardiac Sampling and Pressure, Left Heart, Percutaneous Approach (ICD-10-PCS; principal; 2024-02-13)
PROC: B2111ZZ Fluoroscopy of Multiple Coronary Arteries using Low Osmolar Contrast (ICD-10-PCS; 2024-02-13)
DX: I21.B Myocardial infarction with coronary microvascular dysfunction (principal); I50.23 Acute on chronic systolic (congestive) heart failure; Z68.42 Body mass index [BMI] 45.0-49.9, adult; I11.0 Hypertensive heart disease with heart failure; E66.01 Morbid (severe) obesity due to excess calories; F19.10 Other psychoactive substance abuse, uncomplicated; I25.10 Atherosclerotic heart disease of native coronary artery without angina pectoris; F17.200 Nicotine dependence, unspecified, uncomplicated; Z79.82 Long term (current) use of aspirin; Z79.52 Long term (current) use of systemic steroids; Z79.02 Long term (current) use of antithrombotics/antiplatelets; Z90.49 Acquired absence of other specified parts of digestive tract; Z79.899 Other long term (current) drug therapy; Z91.199 Patient's noncompliance with other medical treatment and regimen due to unspecified reason
CPT/HCPCS: 36415; 71045; 71275; 74175; 76937; 80048; 80053; 80061; 80076; 80307; 81001; 83690; 83735; 83880; 84100; 84484; 85025; 85379; 85610; 85730; 93005; 93306; 93458; 96374; 96375; 99152; 99153; 99285; C1893; J0461; J1644; J2001; J2250; J2270; J2405; J3010; J7040; Q9966; Q9967